=== PATIENT | female | born 1935 | race Caucasian/White ===

== ENCOUNTER 2018-01-11 07:29 | Day surgery (SDC) | payer OTHER ==
[2018-01-10 14:15] LABS: Absolute Lymphocytes (CBC) 0.8 K/uL (0.7-4.9); Absolute Monocytes 0.3 K/uL (0.1-1.3); Absolute Neutrophil 2.7 K/uL (1.8-8.0); Basophils % 0.6 % (0-1.3); Eosinophils % 1.8 % (0-4.4); Hematocrit 36.7 % (36.0-45.0); Lymphocytes % 19.8 % (15.3-44.8); MCH 26.4 pg (27.0-35.0); MPV 8.8 fL (7.6-11.3); Monocytes % 8.7 % (3.3-12.3); RBC Red Blood Cell Count 4.43 M/uL (3.86-4.86)
[2018-01-10 14:25] LABS: Potassium 4.4 mEq/L (3.6-5.0)
[2018-01-10 14:27] LABS: Protime INR 1.32
--- NOTE | 2018-01-10 14:32 | RAD REPORT ---
EXAM DESCRIPTION: RAD - Chest Pa And Lat (2 Views) - 01/10/2018 2:18 pm CLINICAL HISTORY: Preop chest, pending pacemaker exchange COMPARISON: Chest March 2017 TECHNIQUE: PA and lateral views of the chest were obtained. FINDINGS: The lungs are normal volume. Masslike density in the right midlung field is still present. Review of prior reports indicates a lung cancer history. No acute failure findings. Cardiomegaly i s present. No pleural effusion or pneumothorax seen. No acute bony finding noted. No aortic abnorma lity. Left subclavian pacemaker in place. IMPRESSION: Cardiomegaly without acute failure finding. Masslike density right midlung field similar or less prominent than seen March 2017. The right lung field finding is presumed to be part of a lung cancer process previously detailed.
--- NOTE | 2018-01-10 18:34 | EKG ---
Test Date: 2018-01-10 Test Time: 13:30:01 Music Supervisor: LENCHO MEASUREMENT RESULTS: Intervals: Rate: 62 OR: QRSD: 204 QT: 526 QTc: 533 Lantry: P: OR: QRS: -63 T: 117 INTERPRETIVE STATEMENTS: Electronic ventricular pacemaker Compared to ECG 06/01/2017 14:31:24 Sinus rhythm no longer present First degree AV block no longer present Right bundle-branch block no longer present Left anterior fascicular block no longer present Bifascicular block no longer present Electronically Signed On 01-10-18 18:33:29 CDT by Sarthak Carrillo
[~2018-01-11 07:29] MED LIST: CEFAZOLIN IRR ONE; IRR IRR ONE; NACL IRR ONE; VANCOMYCIN IRR ONE
[2018-01-11] MEDS ORDERED: VANCOMYCIN IRR SCH (07:30)
[2018-01-11] MEDS ORDERED: NACL IRR SCH (07:30)
[2018-01-11] MEDS ORDERED: IRR IRR SCH (07:30)
[2018-01-11] MEDS ORDERED: CEFAZOLIN IRR SCH (07:30)
--- OUTSIDE RECORDS SUMMARY | 2018-01-11 07:31 | XMS REPORT | Clinical Summary ---
:1935 Author Organization [facility] Address [address] [place] [address] Care Team Providers Name Role Phone Jace Persaud MD Primary Care Provider Allergies Active Allergy Reactions Severity Noted Date Comments Propafenone 01/23/2016 Current Medications Prescription Sig. Disp. Refills Start Date End Date Status metFORMIN Take 500 mg by Active (GLUCOPHAGE) 500 MG mouth 2 (two) tablet times a day with meals. lisinopril Take 10 mg by Active (PRINIVIL,ZESTRIL) 10 mouth daily. MG tablet apixaban (ELIQUIS) 5 Take 2.5 mg by Active mg tablet mouth 2 (two) times a day. sertraline (ZOLOFT) Take 50 mg by Active 50 MG tablet mouth daily. atorvastatin Take 40 mg by Active (LIPITOR) 40 MG mouth daily tablet with dinner. lansoprazole Take 30 mg by Active (PREVACID) 30 MG mouth daily capsule before breakfast. diphenhydrAMINE Take 25 mg by Active (BENADRYL) 25 mg mouth nightly tablet as needed for sleep. cyanocobalamin 1000 Take 1,000 mcg Active MCG tablet by mouth daily. rosiglitazone Take 2 mg by Discontinued (AVANDIA) 2 MG tablet mouth 2 (two) 7 times a day. furosemide (LASIX) 40 Take 40 mg by Discontinued mg tablet mouth 2 (two) 7 times a day. carvedilol (COREG) Take 6.25 mg Discontinued 6.25 MG tablet by mouth 2 7 (two) times a day with meals. apixaban (ELIQUIS) 5 Take 5 mg by Discontinued mg tablet mouth 2 (two) 7 times a day. metoprolol succinate Take 1 tablet 30 tablet 0 04/26/2017 XL (TOPROL-XL) 50 mg (50 mg total) 7 24 hr tablet by mouth daily for 30 days. insulin GLARGINE Inject 25 7.5 mL 0 04/26/2017 (LANTUS) 100 unit/mL Units under 7 injection (vial) the skin nightly for 30 days. insulin lispro Inject 8 Units 10 mL 12 04/26/2017 (HumaLOG) 100 unit/mL under the skin 7 injection 3 (three) times a day with meals for 30 days. furosemide (LASIX) 20 Take 1 tablet 30 tablet 0 04/26/2017 mg tablet (20 mg total) 7 by mouth daily for 30 days. HYDROcodone-acetamino Take 1 tablet 04/26/2017 phen (NORCO) 10-325 by mouth every 7 mg per tablet 6 (six) hours as needed for moderate pain or severe pain for up to 14 days. Max Daily Amount: 4 tablets aspirin 81 mg Chew 1 tablet 30 tablet 0 04/26/2017 chewable tablet (81 mg total) 7 daily for 30 days. nystatin (MYCOSTATIN) Apply 15 g 04/26/2017 100,000 unit/gram topically 2 7 powder (two) times a day for 30 days. isosorbide Take 1 tablet 30 tablet 0 04/26/2017 mononitrate (IMDUR) (30 mg total) 7 30 MG 24 hr tablet by mouth daily for 30 days. Active Problems Problem Noted Date Intertrochanteric fracture of left femur 05/11/2017 Systolic heart failure, chronic 04/21/2017 Acute kidney injury superimposed on CKD 04/21/2017 Type 2 diabetes mellitus with hyperglycemia 04/21/2017 Hip fracture requiring operative repair 04/15/2017 Encounters Date Type Specialty Care Team Description 06/03/2017 Telephone Josias Mccauley, Surgery 05/11/2017 Office Visit Orthopedic Josias Woods, Left hip pain (Primary Dx ); Surgery Intertrochanteric fracture of left femur, closed, with routine healing, subsequent encounter 05/11/2017 Orders Only Orthopedic Josias Woods, Intertrochanteric Surgery fracture of left femur, closed, with routine healing, subsequent encounter (Primary Dx) 05/10/2017 Abstract Josias Mccauley Surgery MD 05/09/2017 Office Visit Josias Mccauley Intertrochanteric Surgery fracture of left femur, closed, with routine healing, subsequent encounter (Primary Dx) 04/19/2017 Anesthesia Event Orthopedic Mike, Surgery MD Angely 04/19/2017 Procedure Pass Orthopedic Surgery 04/19/2017 Surgery Josias Mccauley, ROBBI, Surgery INTRAMEDULLARY NAIL, TIBIA 04/17/2017 Procedure Pass General Surgery 04/16/2017 Anesthesia Event General Surgery Kale Jara MD 04/16/2017 Orders Only Procedural Chandni Thomasnda Cardiology 04/16/2017 Procedure Pass General Surgery 04/15/2017 - Hospital Encounter Orthopedic Demarcus, 04/26/2017 Surgery MD Meme Kilpatrick Ejaz, Trini Lynn MD after 01/10/2017 Social History Tobacco Use Types Packs/Day Years Used Date Never Smoker Alcohol Use Drinks/Week oz/Week Comments No Sex Assigned at Date Recorded Not on file Last Filed Vital Signs Vital Sign Reading Time Taken Blood Pressure 135/61 04/26/2017 7:24 PM CDT Pulse 64 04/26/2017 7:24 PM CDT Temperature 35.7 C (96.3 F) 04/26/2017 7:24 PM CDT Respiratory Rate 16 04/26/2017 7:24 PM CDT Oxygen Saturation 95% 04/26/2017 7:24 PM CDT Inhaled Oxygen Concentration - - Weight 88.9 kg (196 lb) 04/19/2017 5:13 PM CDT Height 152.4 cm (5') 04/19/2017 5:13 PM CDT Body Mass Index 38.28 04/19/2017 5:13 PM CDT Plan of Treatment Health Maintenance Due Date Last Done Comments DIABETIC FOOT EXAM 1945 DIABETIC RETINAL EYE EXAM 1945 SHINGRIX VACCINE (#1) 1985 ZOSTER VACCINE 1995 PNEUMOCOCCAL POLYSACCHARIDE VACCINE AGE 65 AND OVER 02/01/2000 PNEUMOCOCCAL-13 02/01/2000 INFLUENZA VACCINE 03/22/2018 Implants Implanted Type Area Sql Bi Developer Device Expiration Model / Identifier Date Serial / Lot T2 F/T Locking Screw 5mmx32.5mm - [id number] IMPLANT Left: ANGEL 1896 [id number] / Implanted: 04/19/2017 (Quantity not on file) DEVICES [employer] / Nail Im Trchntrc W/ Set Scr Ti 130deg [id number] Strl - [id number] Orthopedic Left: ANGEL 09/21/2021 [id number] / Implanted: 04/19/2017 (Quantity not on file) Trauma [employer] / Implants [id number] Shaft Trnkl Modlr 448mm Strl - [id number] Orthopedic N/A: N/A ANGEL 0227 [id number] / Implanted: Qty: 1 on 04/19/2017 by Josias Woods MD [employer] / Implants [id number] Screw Bone Lag Ti [id number] - [id number] Orthopedic Left: ANGEL 3060 [id number] / Implanted: 04/19/2017 (Quantity not on file) [employer] / Implants Procedures Procedure Name Priority Date/Time Associated Diagnosis Comments CONSULT TO OSTOMY CARE Routine 04/20/2017 6:55 PM NURSE CDT LA AN ELECTIVE Routine 04/19/2017 2:10 PM ENDOTRACHEAL AIRWAY CDT Procedure Note - Kale Jara MD - 04/19/2017 2:09 PM CDT Airway Performed by: KALE JARA Authorized by: KALE JARA Location: OR Urgency: Elective Difficult Airway: No Anesthesiologist: KALE JARA Performed by: anesthesiologist Preoxygenated with 100% O2: Yes C-spine Precautions Maintained Throughout: No Mask assessment prior to intubation: RSI-mask ventilation not attempted. Final Airway Type: Endotracheal airway Final Endotracheal Airway: ETT Cuffed: Yes Technique Used: Direct laryngoscopy Insertion Site: Oral Blade Type: Lemus Laryngoscope Blade/Videolaryngoscope Blade Size: 2 ETT Size (mm): 7.0 Cuff at minimum occlusion pressure: Yes Measured from: Gums ETT to Gums (cm): 20 Placement Verified by: CO2 detection Laryngoscopic view: Grade I - full view of glottis Rapid Sequence Induction (RSI): Yes Modified RSI: No Number of Attempts at Approach: 1 INSERTION, INTRAMEDULLARY 04/19/2017 11:00 AM CDT NAIL, TIBIA ECHOCARDIOGRAM 2D COMPLETE Routine 04/16/2017 7:31 AM CDT Results for this W MMODE SPECTRAL COLOR procedure are in the DOPPLER ([id number]) results section. after 01/10/2017 Results POC glucose (04/26/2017 5:24 PM)Only the most recent of54 resultswithin the time period is included. Component Value Ref Range POC glucose 215 (H) 65 - 99 mg/dL Comment: [facility] Notified RN Meter ID: [id number] Qualification Engineer: Moiz Esquivel Specimen Performing Laboratory [facility] DEPARTMENT OF PATHOLOGY AND GENOMIC MEDICINE [address] [place] [address] Estimated GFR (04/26/2017 3:05 AM)Only the most recent of14 resultswithin the time period is included. Component Value Ref Range GFR Non Af Amer 48 (A) mL/min/1.73 m2 GFR Af Amer 58 (A) mL/min/1.73 m2 Comment: Chronic kidney disease: <60 mL/min/1.73m2 Kidney failure: <15 mL/min/1.73m2 The estimated GFR is calculated from the IDMS-traceable Modification of Diet in Renal Disease Equation. The accuracy of the calculation is poor when the creatinine is normal. Calculated values >90 mL/min/1.73m2 are not reported. This equation has not been validated in children (<18 years), women, the elderly (>70 years), or ethnic groups other than Caucasians and Americans. Specimen Performing Laboratory Plasma specimen [facility] DEPARTMENT OF PATHOLOGY AND GENOMIC MEDICINE [address] [place] [address] CBC with platelet and differential (04/26/2017 3:05 AM)Only the most recent of10 resultswithin the time period is included. Component Value Ref Range WBC 6.07 4.50 - 11.00 k/uL RBC 3.57 (L) 4.20 - 5.50 m/uL HGB 9.9 (L) 12.0 - 16.0 g/dL HCT 32.7 (L) 37.0 - 47.0 % MCV 91.6 82.0 - 100.0 fL MCH 27.7 27.0 - 34.0 pg MCHC 30.3 (L) 31.0 - 37.0 g/dL RDW - SD 52.7 37.0 - 55.0 fL MPV 10.3 8.8 - 13.2 fL Platelet count 211 150 - 400 k/uL Nucleated RBC 0.00 /100 WBC Neutrophils 64.5 39.0 - 69.0 % Lymphocytes 16.5 (L) 25.0 - 45.0 % Monocytes 15.7 (H) 0.0 - 10.0 % Eosinophils 1.8 0.0 - 5.0 % Basophils 0.3 0.0 - 1.0 % Immature granulocytes 1.2 (H)Comment: "Immature granulocytes" 0.0 - 1.0 % (promyelocytes, myelocytes, metamyelocytes) Specimen Performing Laboratory Blood [facility] DEPARTMENT OF PATHOLOGY AND [facility] MEDICINE [address] [place] [address] Basic metabolic panel (04/26/2017 3:05 AM)Only the most recent of13 resultswithin the time period is included. Component Value Ref Range Sodium 137 135 - 148 mEq/L Potassium 5.3 (H) 3.5 - 5.0 mEq/L Chloride 102 98 - 112 mEq/L CO2 23 (L) 24 - 31 mEq/L Anion gap 12 7 - 15 mEq/L Comment: Starting from November , anion gap calculation no longer incorporates potassium. Please note the change. BUN 50 (H) 8 - 23 mg/dL Creatinine 1.1 (H) 0.5 - 0.9 mg/dL Glucose 133 (H) 65 - 99 mg/dL Calcium 8.5 (L) 8.8 - 10.2 mg/dL Specimen Performing Laboratory Plasma specimen [facility] DEPARTMENT OF PATHOLOGY AND [address] [address] XR Chest 1 Vw Portable (04/24/2017 6:26 AM)Only the most recent of2 resultswithin the time period is included. Specimen Performing Laboratory [facility] [address] [place] [address] Narrative EXAMINATION:XR CHEST 1 VW PORTABLE CLINICAL HISTORY: 82 years Female SHORTNESS OF BREATH [facility] COMPARISON:Most recent prior at [facility] IMPRESSION: 1.Left chest wall cardiac device is similar to prior. The cardiomediastinal silhouette is enlarged, stable. Calcification in the aortic arch. 2.There is interstitial prominence bilaterally which may reflect some edema. There is a stable masslike opacity in the right perihilar region. Follow-up CT scan can be obtained for further characterization when feasible. Small right-sided pleural effusion. No pneumothorax. 3.There is a sclerotic lesion in the proximal left humerus, incompletely imaged, present on priors. It may represent a low-grade cartilaginous lesion such as an enchondroma. [facility]-[id number] Procedure Note [facility], Radiology Results Incoming - 04/24/2017 7:19 AM CDT EXAMINATION: XR CHEST 1 VW PORTABLE CLINICAL HISTORY: 82 years Female SHORTNESS OF BREATH [facility] COMPARISON: Most recent prior at [facility] IMPRESSION: 1. Left chest wall cardiac device is similar to prior. The cardiomediastinal silhouette is enlarged, stable. Calcification in the aortic arch. 2. There is interstitial prominence bilaterally which may reflect some edema. There is a stable masslike opacity in the right perihilar region. Follow-up CT scan can be obtained for further characterization when feasible. Small right- sided pleural effusion. No pneumothorax. 3. There is a sclerotic lesion in the proximal left humerus, incompletely imaged, present on priors. It may represent a low-grade cartilaginous lesion such as an enchondroma. [facility]-[id number] US Renal (04/23/2017 5:27 PM) Specimen Performing [facility] [address] [place] [address] Narrative EXAMINATION:US RENAL CLINICAL HISTORY:Elevated abnormal renal function tests COMPARISON:None. FINDINGS: Both kidneys are echogenic and moderate renal cortical atrophy is present. Findings are consistent with chronic renal disease. There is no evidence of hydronephrosis. The right kidney measures 9.2 x 3.6 x 3.2 cm. The left kidney measures 9.3 x 4.3 x 4.6 cm.. The urinary bladder is not visualized. IMPRESSION: Normal renal ultrasound examination. [facility]-[id number] Procedure Note Interface, Radiology Results Incoming - 04/23/2017 7:48 PM CDT EXAMINATION: US RENAL CLINICAL HISTORY: Elevated abnormal renal function tests COMPARISON: None. FINDINGS: Both kidneys are echogenic and moderate renal cortical atrophy is present. Findings are consistent with chronic renal disease. There is no evidence of hydronephrosis. The right kidney measures 9.2 x 3.6 x 3.2 cm. The left kidney measures 9.3 x 4.3 x 4.6 cm.. The urinary bladder is not visualized. IMPRESSION: Normal renal ultrasound examination. [facility]-[id number] Urinalysis screen and microscopy, with reflex to culture (04/21/2017 9:11 AM) Component Value Ref Range Specimen site Salcedo Color, UA Yellow Appearance, UA Hazy Specific gravity, UA 1.015 1.001 - 1.035 pH, UA 5.0 5.0 - 8.5 Protein, UA Negative Negative Glucose, UA Negative Negative Ketones, UA Negative Negative Bilirubin, UA Negative Negative Blood, UA Moderate (A) Negative Nitrite, UA Negative Negative Urobilinogen, UA <2.0 <2.0 Leukocyte esterase, UA Trace (A) Negative Epithelial cells, UA 2 /HPF WBC, UA 4 0 - 4 /HPF RBC, UA 18 (H) 0 - 2 /HPF Bacteria, UA Few None seen Yeast, UA None seen Yeast with pseudohyphae, UA None seen Hyaline casts, UA 7 /LPF Specimen Performing Laboratory Urine [facility] DEPARTMENT OF PATHOLOGY AND GENOMIC MEDICINE [address] [place] [address] Urea nitrogen, urine, random (04/21/2017 9:11 AM)Only the most recent of2 resultswithin the time period is included. Component Value Ref Range Urea nitrogen, urine, random 560 mg/dL Specimen Performing Laboratory Urine [facility] DEPARTMENT OF PATHOLOGY AND GENOMIC MEDICINE [address] [place] [address] Creatinine level, urine, random (04/21/2017 9:11 AM)Only the most recent of2 resultswithin the time period is included. Component Value Ref Range Creatinine, urine, random 109 mg/dL Specimen Performing Laboratory Urine [facility] DEPARTMENT OF PATHOLOGY AND [facility] MEDICINE [address] [place] [address] Gram stain (04/21/2017 9:11 AM) Component Value Ref Range Gram stain result No WBC's or organisms seen. Comment: Specimen Information Specimen Source: Urine Specimen Site: Random void Specimen Performing Laboratory Urine - Random void [facility] DEPARTMENT OF PATHOLOGY AND [facility] MEDICINE [address] [place] [address] Urine culture (04/21/2017 9:11 AM) Component Value Ref Range Urine culture isolate No growth after 2 days. Comment: Specimen Information Specimen Source: Urine Specimen Site: Random void Specimen Performing Laboratory Urine - Random void [facility] DEPARTMENT OF PATHOLOGY AND GENOMIC MEDICINE [address] [place] [address] B natriuretic peptide (04/21/2017 4:00 AM)Only the most recent of3 resultswithin the time period is included. Component Value Ref Range BNP 1,141 (H) 0 - 100 pg/mL Specimen Performing Laboratory Blood [facility] DEPARTMENT OF PATHOLOGY AND GENOMIC MEDICINE [address] [place] [address] Hemoglobin A1c (04/21/2017 3:30 AM) Component Value Ref Range Hemoglobin A1C 10.2 (H) 4.0 - 5.6 % Comment: HbA1c cutoffs for diagnosing diabetes: 4.0% - 5.6%=normal 5.7% - 6.4%=increased risk for diabetes (prediabetes) >=6.5%=diabetes Goals for glycemic control (ADA 2016) < 7.0%Target for non adults with diabetes. More or less stringent targets may be appropriate for individual patients. <7.5% Target for Children and adolescents with type 1 diabetes. Specimen Performing Laboratory Blood [facility] DEPARTMENT OF PATHOLOGY AND [facility] MEDICINE [address] [place] [address] XR Hip 1 View Left (04/19/2017 4:04 PM) Specimen Performing Laboratory [address] [address] Narrative EXAM:XR HIP 1 VIEW LEFT CLINICAL:Post Op COMPARISON:None. IMPRESSION: 1.Intramedullary dax and dynamic screw fixation of left femoral neck fracture. Hardware intact. Well aligned. 2.Small residual subcutaneous emphysema. 3.Vascular calcifications. [facility]-[id number] Procedure Note Interface, Radiology Results Incoming - 04/19/2017 4:09 PM CDT EXAM: XR HIP 1 VIEW LEFT CLINICAL: Post Op COMPARISON: None. IMPRESSION: 1. Intramedullary dax and dynamic screw fixation of left femoral neck fracture. Hardware intact. Well aligned. 2. Small residual subcutaneous emphysema. 3. Vascular calcifications. [facility]-[id number] OR [place] > I Hour (04/19/2017 2:40 PM) Specimen Performing Laboratory [address] [address] Narrative IMPRESSION: C-arm fluoroscopy over 1 hour was provided in the OR for the referring physician. A radiologist was not present during the procedure. Refer to the Operative report issued by the performing provider for procedure details. LOCATION: [facility] OR 16 PROCEDURE: C-Arm for ORIF INTRAMEDULLARY NAIL, LEFT HIP START TIME: 1330 FINISH TIME: 1440 FLUORO TIME: 1 min 55 sec DOSE: mGy:7.86 TECH(S): ASHIA JACQUELINE Procedure Note [facility], Radiology Results Incoming - 04/21/2017 1:11 PM CDT IMPRESSION: C-arm fluoroscopy over 1 hour was provided in the OR for the referring physician. A radiologist was not present during the procedure. Refer to the Operative report issued by the performing provider for procedure details. LOCATION: [facility] OR 16 PROCEDURE: C-Arm for ORIF INTRAMEDULLARY NAIL, LEFT HIP START TIME: 1330 FINISH TIME: 1440 FLUORO TIME: 1 min 55 sec DOSE: mGy: 7.86 TECH(S): ASHIA JACQUELINE Prothrombin time with INR (04/18/2017 8:43 AM)Only the most recent of2 resultswithin the time period is included. Component Value Ref Range Prothrombin time 16.3 (H) 12.0 - 15.0 sec INR 1.3 Comment: The International Normalized Ratio (INR) is a therapeutic monitoring tool for patients who are stable on oral anticoagulant therapy. An INR of 2.0-3.0 is suggested for deep vein thrombosis/pulmonary embolism. Specimen Performing Laboratory Blood [facility] DEPARTMENT OF PATHOLOGY AND GENOMIC MEDICINE [address] [place] [address] Urinalysis, automated with microscopy (04/17/2017 11:10 AM) Component Value Ref Range Color, UA Yellow Appearance, UA Hazy Specific gravity, UA 1.014 1.001 - 1.035 pH, UA 5.0 5.0 - 8.5 Protein, UA Negative Negative Glucose, UA 1+ (A) Negative Ketones, UA Negative Negative Bilirubin, UA Negative Negative Blood, UA Moderate (A) Negative Nitrite, UA Negative Negative Urobilinogen, UA <2.0 <2.0 Leukocyte esterase, UA Small (A) Negative Epithelial cells, UA 2 /HPF WBC, UA 24 (H) 0 - 4 /HPF RBC, UA 35 (H) 0 - 2 /HPF Bacteria, UA Few None seen Hyaline casts, UA 7 /LPF WBC clumps, UA Few (A) Yeast, UA None seen Yeast with pseudohyphae, UA None seen Specimen Performing Laboratory Urine [facility] DEPARTMENT OF PATHOLOGY AND [facility] MEDICINE [address] [place] [address] Phosphorus level (04/17/2017 3:05 AM)Only the most recent of2 resultswithin the time period is included. Component Value Ref Range Phosphorus 4.7 (H) 2.4 - 4.5 mg/dL Specimen Performing Laboratory Plasma specimen [facility] DEPARTMENT OF PATHOLOGY AND [address] [address] Magnesium level (04/17/2017 3:05 AM)Only the most recent of2 resultswithin the time period is included. Component Value Ref Range Magnesium 2.3 1.6 - 2.4 mg/dL Specimen Performing Laboratory Plasma specimen [facility] DEPARTMENT OF PATHOLOGY AND [address] [address] Comprehensive metabolic panel (04/17/2017 3:05 AM) Component Value Ref Range Sodium 135 135 - 148 mEq/L Potassium 5.4 (H) 3.5 - 5.0 mEq/L Chloride 98 98 - 112 mEq/L CO2 23 (L) 24 - 31 mEq/L Anion gap 14 7 - 15 mEq/L Comment: Starting from November , anion gap calculation no longer incorporates potassium. Please note the change. BUN 43 (H) 8 - 23 mg/dL Creatinine 2.2 (H) 0.5 - 0.9 mg/dL Glucose 188 (H) 65 - 99 mg/dL Calcium 8.9 8.8 - 10.2 mg/dL Protein 6.7 6.3 - 8.3 g/dL Comment: [place] 4.6-7.0 g/dL 1 week 4.4-7.6 g/dL 7 months-1year5.1-7.3 g/dL 1-2 years5.6-7.5 g/dL >3 years6.0-8.0 g/dL 18-150 6.3-8.3 g/dL Albumin 2.5 (L) 3.5 - 5.0 g/dL A/G ratio 0.6 (L) 0.7 - 3.8 Alkaline phosphatase 138 (H) 35 - 104 U/L AST 17 10 - 35 U/L ALT 10 5 - 50 U/L Total bilirubin 0.6 0.0 - 1.2 mg/dL Specimen Performing Laboratory Plasma specimen [facility] DEPARTMENT OF PATHOLOGY AND [facility] MEDICINE [address] [place] [address] Echocardiogram complete w contrast and 3D if needed (04/16/2017 7:31 AM) Specimen Performing Laboratory [facility] [address] [place] [address] Narrative Echocardiography Report [id number] [facility], [facility] [address], [place] [address] Pat.Name:Ijeoma ENGLE.ID:[id number] .Date: 04/16/2017 Refer.MD:TIMBO ZELAYA MD Exam Time: 6:48:00 AMStudy Type:Routine Echo Height:145cm Weight:94.6kg BSA: 1.83 m2 DOBAge:1935,82Y Sex: FEMALEBP:140/63 Sonogrphr: Kecia Stone, RDCS, RVT Pat. Stat.:Inpatient Room:[address] Study Status:Final Echo Event ID:[id number] Order ID:[id number] Reason for Study:H/o CHF History / Clinical:Diabetes, Hypertension, Congestive Heart Failure, Dyspnea On Exertion, Obesity, GI bleed, Anemia, H/o bilateral pleural effusion Procedures:2D Echo, Colorflow Doppler Race:C SUMMARY: LV systolic function is moderately to severely depressed. RV systolic function is moderately depressed. FINDINGS: LV: LV size is normal. There isconcentric LV hypertrophy. LV systolicfunction is moderately to severely depressed. EstimatedEF is 30-34%. Septal motion is paradoxical secondaryto LBBB or conduction abnormality. RV: RV size is normal. A pacemaker wire is seen in the RV. RV systolicfunction is moderately depressed. Apical hypokinesis LA: LA size is normal. RA: RA volume is moderately enlarged. A pacemaker wire is seen. AO: Aortic root diameter is normal. CM: No pericardial effusion. IAS:Interatrial septum bulges to the left, consistent with high RApressure. AV: Moderate thickening and calcification of AV leaflets. MV: Mild mitral annular calcification. Thickened and/or calcifiedchordae. Calcified papillary muscle. PV: No structural PV abnormalities noted. A trace of pulmonic regurgitation. TV: No structural TV abnormalities noted. Mild tricuspid regurgitation [place]: LV relaxation is impaired. LV filling pressure is borderline elevated. Other:Estimated PA systolic pressure is 60 mmHg, assuming a mean RAPof 15 mmHg. MEASUREMENTS: 2D Parasternal Long [place] LVOT 2.4 cmAo An2.5 cm LVIDd4.6 cmIndex 2.5 cm/m Ao Rtd 3 cm Index1.6 cm/m LVIDs4.1 cmLV Bowc279.4 g(87-129) LV%fs 10.9 % LVM Index 206.8 g/m2 IVSd 2 cmRWT0.7 LVPWd1.6 cm RA Sng Plane RA Area 23.6 cm2(8.3-19.5) RA Vol 88 ml Index48.1 ml/m RA LngAx 5.4 cm WALL MOTION: RESTING WALL MOTION: Basal Inferoseptal, Basal Inferior varner are akinetic.Mid Inferoseptal, Mid Inferolateral, Apical Septal, Apical Inferior, Apical varner are hypokinetic.Basal Anterior, Basal Anteroseptal, Basal Inferolateral, Basal Anterolateral, Mid Anterior, Mid Anteroseptal, Mid Inferior, Mid Anterolateral, Apical Anterior, Apical Lateral varner are mildly hypokinetic. Wall Index=1.8 Signed 04/16/2017 12:12 PM Jessi Shaffer M.D. Procedure Note Interface, Radiology Results In - 04/16/2017 12:13 PM CDT Echocardiography Report [id number] [address] Pat.Name: QUOC ENGLE Pat.ID: [id number] .Date: 04/16/2017 Refer.MD: TIMBO ZELAYA MD Exam Time: 6:48:00 AM Study Type:Routine Echo Height: 145cm Weight: 94.6kg BSA: 1.83 m2 Age: 6 1935,82Y Sex: FEMALE BP: 140/63 Sonogrphr: Kecia Stone RDCS, RVT Pat. Stat.:Inpatient Room: D760 A Study Status:Final Echo Event ID:[id number] Order ID: [id number] Reason for Study:H/o CHF History / Clinical:Diabetes, Hypertension, Congestive Heart Failure, Dyspnea On Exertion, Obesity, GI bleed, Anemia, H/o bilateral pleural effusion Procedures:2D Echo, Colorflow Doppler Race: C SUMMARY: LV systolic function is moderately to severely depressed. RV systolic function is moderately depressed. FINDINGS: LV: LV size is normal. There is concentric LV hypertrophy. LV systolic function is moderately to severely depressed. Estimated EF is 30-34%. Septal motion is paradoxical secondary to LBBB or conduction abnormality. RV: RV size is normal. A pacemaker wire is seen in the RV. RV systolic function is moderately depressed. Apical hypokinesis LA: LA size is normal. RA: RA volume is moderately enlarged. A pacemaker wire is seen. AO: Aortic root diameter is normal. CM: No pericardial effusion. IAS: Interatrial septum bulges to the left, consistent with high RA pressure. AV: Moderate thickening and calcification of AV leaflets. MV: Mild mitral annular calcification. Thickened and/or calcified chordae. Calcified papillary muscle. PV: No structural PV abnormalities noted. A trace of pulmonic regurgitation. TV: No structural TV abnormalities noted. Mild tricuspid regurgitation Beaver: LV relaxation is impaired. LV filling pressure is borderline elevated. Other: Estimated PA systolic pressure is 60 mmHg, assuming a mean RAP of 15 mmHg. MEASUREMENTS: 2D Parasternal Long [place] LVOT 2.4 cm Ao An 2.5 cm LVIDd 4.6 cm Index 2.5 cm/m Ao Rtd 3 cm Index 1.6 cm/m LVIDs 4.1 cm LV Mass 378.4 g (87-129) LV%fs 10.9 % LVM Index 206.8 g/m2 IVSd 2 cm RWT 0.7 LVPWd 1.6 cm RA Sng Plane RA Area 23.6 cm2 (8.3-19.5) RA Vol 88 ml Index 48.1 ml/m RA LngAx 5.4 cm WALL MOTION: RESTING WALL MOTION: Basal Inferoseptal, Basal Inferior varner are akinetic. Mid Inferoseptal, Mid Inferolateral, Apical Septal, Apical Inferior, Apical varner are hypokinetic. Basal Anterior, Basal Anteroseptal, Basal Inferolateral, Basal Anterolateral, Mid Anterior, Mid Anteroseptal, Mid Inferior, Mid Anterolateral, Apical Anterior, Apical Lateral varner are mildly hypokinetic. Wall Index=1.8 Signed 04/16/2017 12:12 PM Jessi Shaffer M.D. Antibody identification (04/16/2017 4:00 AM) Component Value Ref Range Antibody ID POS, Anti-E Antibody ID POS, Undetermined Specificity Specimen Performing Laboratory [facility] DEPARTMENT OF PATHOLOGY AND GENOMIC MEDICINE [address] [place] [id number] Type and screen (04/16/2017 4:00 AM) Component Value Ref Range ABO grouping A Rh type POS Antibody screen (gel) POS Specimen Performing Laboratory Blood [facility] DEPARTMENT OF PATHOLOGY AND GENOMIC MEDICINE [address] [place] [id number] XR Hip 2-3 View Left (04/16/2017 3:23 AM) Specimen Performing Laboratory [address] [address] Narrative XR HIP 2-3 VIEWS LEFT CLINICAL INDICATION:fracture COMPARISON:None. IMPRESSION: There is a mildly angulated intertrochanteric fracture of the proximal left femur. No other acute fracture is identified. There is no hip dislocation. The bones are demineralized. There are degenerative changes of both hips. There is partially visualized hardware within the proximal right femoral shaft. There are vascular calcifications, compatible with peripheral vascular disease. [facility]-[id number] Procedure Note Interface, Radiology Results Incoming - 04/16/2017 3:30 AM CDT XR HIP 2-3 VIEWS LEFT CLINICAL INDICATION: fracture COMPARISON: None. IMPRESSION: There is a mildly angulated intertrochanteric fracture of the proximal left femur. No other acute fracture is identified. There is no hip dislocation. The bones are demineralized. There are degenerative changes of both hips. There is partially visualized hardware within the proximal right femoral shaft. There are vascular calcifications, compatible with peripheral vascular disease. [facility]-[id number] XR Femur 2 Vw Left (04/16/2017 3:23 AM) Specimen Performing Laboratory [address] [address] Narrative XR FEMUR 2 VW LEFT CLINICAL INDICATION:fracture COMPARISON:None. IMPRESSION: There is a mildly angulated intertrochanteric fracture of the proximal left femur. No other acute fracture is identified. There is no hip dislocation. The bones are demineralized. There are degenerative changes of both hips. There is partially visualized hardware within the proximal right femoral shaft. There are vascular calcifications, compatible with peripheral vascular disease. [facility]-[id number] Procedure Note Interface, Radiology Results Incoming - 04/16/2017 3:30 AM CDT XR FEMUR 2 VW LEFT CLINICAL INDICATION: fracture COMPARISON: None. IMPRESSION: There is a mildly angulated intertrochanteric fracture of the proximal left femur. No other acute fracture is identified. There is no hip dislocation. The bones are demineralized. There are degenerative changes of both hips. There is partially visualized hardware within the proximal right femoral shaft. There are vascular calcifications, compatible with peripheral vascular disease. [facility]-[id number] ECG 12 lead (04/15/2017 9:35 PM) Component Value Ref Range Ventricular rate 60 Atrial rate 68 QRSD interval 156 QT interval 512 QTC interval 512 QRS axis 1 -60 T wave axis -88 EKG impression Wide QRS rhythm-Right bundle branch block-Left anterior fascicular block-^^^ Bifascicular block ^^^-Left ventricular hypertrophy with repolarization abnormality-Abnormal ECG-In automated comparison with ECG of May-2015 12:50,-Wide QRS rhythm has replaced Electronic ventricular pacemaker- Specimen Performing Laboratory [facility] MUSE [address] [place] [id number] Partial thromboplastin time, activated (04/15/2017 9:00 PM) Component Value Ref Range PTT 26.8 23.0 - 36.0 sec Comment: PTT therapeutic range for unfractionated heparin is 61.0-112.0 seconds which corresponds to Anti-Xa 0.3-0.7 U/ml. Specimen Performing Laboratory Blood [facility] DEPARTMENT OF PATHOLOGY AND GENOMIC MEDICINE [address] [place] [id number] Troponin (04/15/2017 7:27 PM) Component Value Ref Range Troponin <0.30 0.00 - 0.30 ng/mL Comment: 0.30 - 1.49 ng/mlMay indicate increased risk of acute coronary syndrome. >=1.5 ng/mlConsistent with acute myocardial infarction. The diagnostic value of a single normal or non-diagnostic result is questionable.Serial samples at 2-6 hour intervals are required to rule out acute myocardial injury. Specimen Performing Laboratory Plasma specimen [facility] DEPARTMENT OF PATHOLOGY AND GENOMIC MEDICINE [address] [place] [id number] Lactic acid level (04/15/2017 7:27 PM) Component Value Ref Range Lactic acid 2.0 0.5 - 2.2 mmol/L Specimen Performing Laboratory Plasma specimen [facility] DEPARTMENT OF PATHOLOGY AND GENOMIC MEDICINE [address] [place] [phone] after 01/10/2017 Insurance Payer Benefit Plan / Group Subscriber ID Type Phone Address MEDICARE MEDICARE PART A AND B xxxxxxxxxx Medicare [place], [place] AETNA AETNA HMO,POS,EPO, MC/EC xxxxxx HMO Home: [address] [phone] [address]
[2018-01-11] MEDS ORDERED: NA CHLORIDE 0.9% 500 ML ONE (07:59)
[2018-01-11] MEDS ORDERED: GENTAMICIN 80 MG/100 ML BAG 80 MG/100 ML BAG IV ONE (08:21)
[2018-01-11] MEDS ORDERED: CEFAZOLIN/SWI 1gm 1 GM/10 ML SYR ONE (08:21)
[2018-01-11] MEDS ORDERED: ATROPINE SULF 1 MG/10 ML SYR IV ONE (09:29)
[2018-01-11] MEDS ORDERED: MIDAZOLAM HCL 2 MG/2 ML INJ ONE (09:29)
[2018-01-11] MEDS ORDERED: FENTANYL CITR 100 MCG/2 ML ONE (09:29)
[2018-01-11] MEDS ORDERED: HEPA 1000U/500MLS 1,000 UNIT/500 ML BAG IV ONE (10:55)
[2018-01-11] MEDS ORDERED: LIDOCAINE 1% 20 ML MDV ONE (10:55)
[2018-01-11 12:17] VITALS: BP 157/73; TEMP 98.2; O2SAT 97
--- NOTE | 2018-01-11 19:27 | OP ---
Surgeon: Umer Rowley MD Primary Care Physician: Jace Persaud M.D. Procedure Performed: Pacemaker generator replacement. Indication: Pacemaker reached an TRACY trigger. Procedure In Detail: The patient was brought to the cardiac tutorial laboratory supervisor in a fasting state. She had be en off Eliquis, her last dose was on January 09 at 6 p.m., this is January 11. She gave informed consent . She was prepared and draped in the usual sterile fashion, sedated with combination of fentanyl and versed, titrated to an adequate level of sedation. The pacemaker device she had was implanted into the left pectoral region, was identified through palpation. A 1% lidocaine was used to anesthetize t he skin. A sharp incision was made through the skin, blunt dissection was carried down to the pocket . Pocket was opened. The old pacemaker was explanted. A sponge was placed in the empty pocket, it was enlarged slightly using blunt dissection with gloved fingers. The leads were removed from the ol d pacemaker, placed on the new pacemaker. The leads were tested via telemetry through the new pacema ker. Everything was found to be adequate. The sponge was removed from the pocket. The pocket was i rrigated with antibiotic solution and the device was implanted into the pocket. Pocket was closed wi th a layer of 0 Polysorb, subcutaneous layer with 3-0 Polysorb, and a cutaneous layer of stainless st eel chloe. There were no complications from the procedure. The new pacemaker is made by [employer], it is a model named Accolade MRI IS-1, model L311, serial [id number]. The pacemaker explanted was implanted on 04/21/2011, explanted today. It was a [employer] model S603, serial [id number], explanted because of normal battery depletion. The lead in the right atrium was a [employer] Fineline II EZ Sterox bipolar, model 4469, serial #[id number]. The right ventricular lead is a Nuvolarus IS-1 Bi Positive Fix, model 4135, serial #[id number] also made by [employer]. Both of t hese leads were tested and reused. Electrophysiologic Data: At the right atrial, P-wave amplitude was 1.9 mV, pacing threshold was 0.5 V at 0.4 milliseconds, impedance 458 ohms. Right ventricular lead gave us an R-wave of 6.5 mV, pacin g threshold 1.5 V at 0.4 milliseconds, 470 ohms. Its set DDD rate response is 60-130, right atrial s ensitivity 0.5, right ventricular 2.5. Right atrial output 2.5 V, right ventricular output auto 0.4 milliseconds for both, both are paced and sensed bipolar. At the end of the procedure, sponge counts were correct. Needle counts and instrument counts all correct. Complications: Complications from the procedure, none. Estimated Blood Loss: 5 cc. Shore Man: Davina Swartz. YVONNE/JOHNNY Voice ID: [id number] Report ID: [id number]
== END 2018-01-11 12:10 | disposition home health service (06) ==
LOC: CCL 07:29
PROVIDERS: ATTEND Internal Medicine
DX: Z45.010 Encounter for checking and testing of cardiac pacemaker pulse generator [battery] (principal); I48.3 Typical atrial flutter; I10 Essential (primary) hypertension; E78.2 Mixed hyperlipidemia; E11.9 Type 2 diabetes mellitus without complications
CPT/HCPCS: 33228; 36415; 71046; 80048; 82962 ×2; 85025; 85610; 85730; 93005; J0690 ×2; J1580; J2250; J3010; 88300

== ENCOUNTER 2018-05-02 12:50 | Inpatient (IN) | payer OTHER ==
--- OUTSIDE RECORDS SUMMARY | 2018-05-02 12:52 | XMS REPORT | Continuity of Care Document ---
:1935 Author Organization Interface Problems Problem Status Onset Classification Date Comments Source Date Reported Discharge 05/12/2017 [facility] Diagnosis: 7 Complication of Salcedo catheter CATHETER PAIN Active [facility] 7 Jose Medications Medication Details Route Status Patient Ordering Order Source Instructions Provider Date Acetaminophen 1 tab, Inactive MH 300 MG / Codeine Route: PO, 017 [place] Phosphate 30 MG Drug Form: Oral Tablet TAB, [Tylenol with Dosing Codeine #3] Weight 81.818, kg, ONCE, STAT, Start date: 05/09/17 21:22:00 CDT, Stop date: 05/09/17 21:22:00 CDTNotes: Do not exceed 4gm/day of acetaminop hen. (Same as: Tylenol with Codeine # 3) Allergies, Adverse Reactions, Alerts Substance Category Reaction Severity Reaction Status Date Comments Source type Reported Rythmol Assertion Drug Active allergy [place] Immunizations Immunization Date Given Site Status Last Updated Comments Source Results Order Results Value Reference Date Interpretation Comments Source Name Range Vital Signs Vital Sign Value Date Comments Source Heart Rate 61 05/10/2017 [facility] Respitory Rate 18 05/10/2017 [facility] Temperature Oral (F) 98.2 F 05/10/2017 [facility] Systolic (mm Hg) 132 05/10/2017 [facility] Diastolic (mm Hg) 76 05/10/2017 [facility] Systolic (mm Hg) 142 05/09/2017 [facility] Diastolic (mm Hg) 72 05/09/2017 [facility] Respitory Rate 18 05/09/2017 [facility] Heart Rate 64 05/09/2017 [facility] Temperature Oral (F) 98.2 F 05/09/2017 [facility] Heart Rate 62 05/09/2017 [facility] Systolic (mm Hg) 152 05/09/2017 [facility] Diastolic (mm Hg) 68 05/09/2017 [facility] Respitory Rate 18 05/09/2017 [facility] BMI Calculated 29.11 05/09/2017 [facility] Height 167.64 cm 05/09/2017 [facility] Weight 81.818 05/09/2017 [facility] Temperature Oral (F) 98.0 F 05/09/2017 [facility] Encounters Location Location Encounter Encounter Reason Attending ADM DC Status Source Details Type Number For Provider Date Date Visit [facility] [id number] Sergey 05/09 05/10 KERWIN Hinson /2016 [facility] Procedures Procedure Code Date Perfomer Comments Source Hip arthroplasty [id number] [facility]
--- OUTSIDE RECORDS SUMMARY | 2018-05-02 12:52 | XMS REPORT | Clinical Summary ---
:1935 Author Organization [facility] Address [address] [place] [address] Care Team Providers Name Role Phone Jace Persaud MD Primary Care Provider Allergies Active Allergy Reactions Severity Noted Date Comments Propafenone 01/23/2016 Current Medications Prescription Sig. Disp. Refills Start Date End Date Status metFORMIN (GLUCOPHAGE) Take 500 mg by Active 500 MG tablet mouth 2 (two) times a day with meals. lisinopril Take 10 mg by Active (PRINIVIL,ZESTRIL) 10 mouth daily. MG tablet apixaban (ELIQUIS) 5 Take 2.5 mg by Active mg tablet mouth 2 (two) times a day. sertraline (ZOLOFT) 50 Take 50 mg by Active MG tablet mouth daily. atorvastatin (LIPITOR) Take 40 mg by Active 40 MG tablet mouth daily with dinner. lansoprazole Take 30 mg by Active (PREVACID) 30 MG mouth daily capsule before breakfast. diphenhydrAMINE Take 25 mg by Active (BENADRYL) 25 mg mouth nightly as tablet needed for sleep. cyanocobalamin 1000 Take 1,000 mcg Active MCG tablet by mouth daily. metoprolol succinate Take 1 tablet 30 tablet 0 04/26/2017 05/26/2017 XL (TOPROL-XL) 50 mg (50 mg total) by 24 hr tablet mouth daily for 30 days. insulin GLARGINE Inject 25 Units 7.5 mL 0 04/26/2017 05/26/2017 (LANTUS) 100 unit/mL under the skin injection (vial) nightly for 30 days. insulin lispro Inject 8 Units 10 mL 12 04/26/2017 05/26/2017 (HumaLOG) 100 unit/mL under the skin 3 injection (three) times a day with meals for 30 days. furosemide (LASIX) 20 Take 1 tablet 30 tablet 0 04/26/2017 05/26/2017 mg tablet (20 mg total) by mouth daily for 30 days. HYDROcodone-acetaminop Take 1 tablet by 04/26/2017 05/10/2017 hen (NORCO) 10-325 mg mouth every 6 per tablet (six) hours as needed for moderate pain or severe pain for up to 14 days. Max Daily Amount: 4 tablets aspirin 81 mg chewable Chew 1 tablet 30 tablet 0 04/26/2017 05/26/2017 tablet (81 mg total) daily for 30 days. nystatin (MYCOSTATIN) Apply topically 15 g 04/26/2017 05/26/2017 100,000 unit/gram 2 (two) times a powder day for 30 days. isosorbide mononitrate Take 1 tablet 30 tablet 0 04/26/2017 05/26/2017 (IMDUR) 30 MG 24 hr (30 mg total) by tablet mouth daily for 30 days. Active Problems Problem Noted Date Intertrochanteric fracture of left femur 05/11/2017 Systolic heart failure, chronic 04/21/2017 Acute kidney injury superimposed on CKD 04/21/2017 Type 2 diabetes mellitus with hyperglycemia 04/21/2017 Hip fracture requiring operative repair 04/15/2017 Encounters Date Type Specialty Care Team Description 06/03/2017 Telephone Orthopedic Surgery Josias Woods MD 05/11/2017 Office Visit Orthopedic Surgery Josias Woods, Left hip pain ( Primary Dx); Intertrochanteric fracture of left femur, closed, with routine healing, subsequent encounter 05/11/2017 Orders Only Orthopedic Surgery Josias Woods, Intertrochanteric fracture of left femur, closed, with routine healing, subsequent encounter (Primary Dx) 05/10/2017 Abstract Orthopedic Surgery Josias Woods MD 05/09/2017 Office Visit Orthopedic Surgery Josias Woods, Intertrochanteric fracture of left femur, closed, with routine healing, subsequent encounter (Primary Dx) after 05/01/2017 Social History Tobacco Use Types Packs/Day Years Used Date Never Smoker Alcohol Use Drinks/Week oz/Week Comments No Sex Assigned at Date Recorded Not on file Last Filed Vital Signs Not on file Plan of Treatment Health Maintenance Due Date Last Done Comments DIABETIC FOOT EXAM 1945 DIABETIC RETINAL EYE EXAM 1945 SHINGRIX VACCINE (#1) 1985 ZOSTER VACCINE 1995 PNEUMOCOCCAL POLYSACCHARIDE VACCINE AGE 65 AND OVER 02/01/2000 PNEUMOCOCCAL-13 02/01/2000 INFLUENZA VACCINE 03/22/2018 Implants Implanted Type Area Scrum Coach Device Expiration Model / Identifier Date Serial / Lot T2 F/T Locking Screw 5mmx32.5mm - [id number] IMPLANT Left: ANGEL [id number] / Implanted: 04/19/2017 (Quantity not on file) DEVICES [employer] / Nail Im Trchntrc W/ Set Scr Ti 130deg [id number] Strl - [id number] Orthopedic Left: ANGEL 09/21/2021 [id number] / Implanted: 04/19/2017 (Quantity not on file) Trauma [employer] / Implants [id number] Shaft Trnkl Modlr 448mm Strl - [id number] Orthopedic N/A: N/A ANGEL 0227 [id number] / Implanted: Qty: 1 on 04/19/2017 by Josias Woods MD [employer] / Implants [id number] Screw Bone Lag Ti [id number] - [id number] Orthopedic Left: ANGEL [id number] [id number] / Implanted: 04/19/2017 (Quantity not on file) Trauma [employer] / Implants Results Not on fileafter 05/01/2017 Insurance Payer Benefit Plan / Group Subscriber ID Type Phone Address MEDICARE MEDICARE PART A AND B xxxxxxxxxx Medicare [place], [place] AETNA AETNA HMO,POS,EPO, MC/EC xxxxxx HMO Home: [facility] [place] [phone] [place] [id number]
--- OUTSIDE RECORDS SUMMARY | 2018-05-02 12:52 | XMS REPORT | Summary of Care ---
:1935 Author Organization [facility] Address [address] [place] [address]- Encounter [facility] Hui(FIN) [id number] Date(s): 05/09/17 - 05/09/17 [facility] [id number] [place] [phone] Discharge Diagnosis: Complication of Salcedo catheter Discharge Disposition: Home or Self Care Attending Physician: Sergey Hummel MD Vital Signs Most recent to oldest 1 2 3 [Reference Range]: Height 167.64 cm (05/09/17 12:40 PM) Temperature Oral [96.4-99.1 98.2 DegF 98.2 DegF 98.0 DegF DegF] (05/09/17 10:32 PM) (05/09/17 4:14 PM) (05/09/17 12:40 PM) Blood Pressure [90-140/60-90 132/76 mmHg 142/72 mmHg 152/68 mmHg mmHg] (05/09/17 10:32 PM) *HI* *HI* (05/09/17 4:14 PM) (05/09/17 2:12 PM) Respiratory Rate [14-20 18 BRMIN 18 BRMIN 18 BRMIN BRMIN] (05/09/17 10:32 PM) (05/09/17 4:14 PM) (05/09/17 2:12 PM) Peripheral Pulse Rate [60-100 61 bpm 64 bpm 62 bpm bpm] (05/09/17 10:32 PM) (05/09/17 4:14 PM) (05/09/17 2:12 PM) Weight 81.818 kg (05/09/17 12:40 PM) Body Mass Index 29.11 m2 (05/09/17 12:40 PM) Problem List No data available for this section Allergies, Adverse Reactions, Alerts Substance Reaction Severity Status Rythmol Active Medications Tylenol with Codeine #3 oral tablet 1 tab, Route: PO, Drug Form: TAB, Dosing Weight 81.818, kg, ONCE, STAT, Start date: 05/09/17 21:22:00 CDT, Stop date: 05/09/17 21:22:00 CDT Notes: Do not exceed 4gm/day of acetaminophen. (Same as: Tylenol with Codeine # 3) Start Date: 05/09/17 Stop Date: 05/09/17 Status: Completed Results No data available for this section Immunizations No data available for this section Procedures Procedure Date Related Diagnosis Body Site Hip arthroplasty Social History Social History Type Response Smoking Status Never smoker; Exposure to Tobacco Smoke None; Cigarette Smoking Last 365 Days No; Reg Smoking Cessation Counseling No Assessment and Plan No data available for this section
[2018-05-02] MEDS ORDERED: ALBUTEROL 2.5 MG/3 ML NEB SOL ONE (13:13)
[2018-05-02] MEDS ORDERED: IPRATROPIUM BROM 0.5MG/2.5ML ONE (13:13)
[2018-05-02 13:28] LABS: Absolute Lymphocytes (CBC) 0.9 K/uL (0.7-4.9); Absolute Monocytes 1.1 K/uL (0.1-1.3); Absolute Neutrophil 9.4 K/uL (1.8-8.0); Basophils % 0.8 % (0-1.3); Eosinophils % 0.5 % (0-4.4); Hematocrit 39.8 % (36.0-45.0); Lymphocytes % 7.5 % (15.3-44.8); MCH 25.9 pg (27.0-35.0); MCV 82.3 fL (80-100); MPV 8.6 fL (7.6-11.3); Monocytes % 9.3 % (3.3-12.3); RBC Red Blood Cell Count 4.83 M/uL (3.86-4.86)
[2018-05-02 13:32] LABS: Protime INR 1.77
[2018-05-02 13:45] LABS: Albumin 3.1 g/dL (3.4-5.0); Bilirubin Direct 0.5 mg/dL (0-0.2); CKMB Creatine Kinase MB 3.3 ng/mL (0.3-3.6); Magnesium 2.2 mg/dL (1.8-2.4); Potassium 4.5 mmol/L (3.5-5.1); Protein, Total 7.4 g/dL (6.4-8.2); Troponin (Emerg Dept Use Only) 0.04 ng/mL (0.0-0.045)
[2018-05-02] MEDS ORDERED: FUROSEMIDE 40 MG/4 ML VIAL ONE (14:50)
[2018-05-02 15:22] LABS: Urine Blood TRACE (NEG); Urine Glucose NEGATIVE (NEG); Urine Protein 1+ (NEG); Urine pH 5.5 (5.0-7.0)
--- NOTE | 2018-05-02 15:42 | EDPHYS ---
Physician Documentation [facility] Name: Juvenal Engle Age: 83 yrs Sex: Female : 1935 Arrival Date: 05/02/2018 Time: 12:48 Bed 5 Private MD: ED Physician Bill Hamilton HPI: 05/02 15:00 This 83 yrs old Female presents to ER via EMS with complaints of Shortness Of pm1 Breath. 15:00 The patient has shortness of breath at rest. Onset: The symptoms/episode began/occurred pm1 3 day(s) ago. Duration: The symptoms are continuous, Worse today. The patient's shortness of breath has no apparent modifying factors. Associated signs and symptoms: Pertinent positives: productive cough, Pertinent negatives: fever, nausea, vomiting. Severity of symptoms: in the emergency department the symptoms are worse Pain is currently a 0 / 10. The patient has experienced similar episodes in the past, a few times. The patient has not recently seen a physician, the patient's primary care provider is Dr. Persaud. Historical: - Allergies: 12:55 Amitriptyline; aa5 12:55 propafenone HCl; aa5 12:55 rosiglitazone maleate; aa5 12:55 Rythmol; aa5 12:55 sitagliptin phosphate; aa5 12:55 Tape; aa5 12:55 Januvia; aa5 - Home Meds: 12:55 Eliquis oral oral [Active]; Lasix 40 mg Oral tab 1 tab once daily [Active]; aa5 lansoprazole 30 mg Oral cpDR 1 cap once daily [Active]; alprazolam 0.5 mg Oral tab as needed [Active]; gabapentin 100 mg oral cap [Active]; carvedilol 6.25 mg Oral tab 1 tab nightly [Active]; atorvastatin 40 mg Oral tab 1 tab once daily [Active]; lantus sliding scale per glucometer reading [Active]; - PMHx: 12:55 Anemia; Anxiety; Cancer, Lung; Diabetes - IDDM; GERD; hital hernia; Hypertension; aa5 - PSHx: 12:55 Pacemaker; aa5 - Immunization history:: Adult Immunizations up to date, Pneumococcal vaccine is up to date, Flu vaccine is up to date. - Ebola Screening: : No symptoms or risks identified at this time. - Social history:: Smoking status: Patient/guardian denies using tobacco, but has a distant history of tobacco abuse. ROS: 15:00 Constitutional: Negative for fever, chills, and weight loss, Eyes: Negative for injury, pm1 pain, redness, and discharge, ENT: Negative for injury, pain, and discharge, Neck: Negative for injury, pain, and swelling, Cardiovascular: Negative for chest pain, palpitations, and edema. 15:00 Abdomen/GI: Negative for abdominal pain, nausea, vomiting, diarrhea, and constipation, Back: Negative for injury and pain, : Negative for injury, bleeding, discharge, and swelling, MS/Extremity: Negative for injury and deformity, Skin: Negative for injury, rash, and discoloration, Neuro: Negative for headache, weakness, numbness, tingling, and seizure. 15:00 Respiratory: Positive for cough, with white sputum, shortness of breath. Exam: 15:00 Constitutional: This is a well developed, well nourished patient who is awake, alert, pm1 and in no acute distress. Head/Face: Normocephalic, atraumatic. Eyes: Pupils equal round and reactive to light, extra-ocular motions intact. Lids and lashes normal. Conjunctiva and sclera are non-icteric and not injected. Cornea within normal limits. Periorbital areas with no swelling, redness, or edema. ENT: Nares patent. No nasal discharge, no septal abnormalities noted. Tympanic membranes are normal and external auditory canals are clear. Oropharynx with no redness, swelling, or masses, exudates, or evidence of obstruction, uvula midline. Mucous membranes moist. Neck: Trachea midline, no thyromegaly or masses palpated, and no cervical lymphadenopathy. Supple, full range of motion without nuchal rigidity, or vertebral point tenderness. No Meningismus. Chest/axilla: Normal chest wall appearance and motion. Nontender with no deformity. No lesions are appreciated. Cardiovascular: Regular rate and rhythm with a normal S1 and S2. No gallops, murmurs, or rubs. Normal PMI, no JVD. No pulse deficits. 15:00 Abdomen/GI: Soft, non-tender, with normal bowel sounds. No distension or tympany. No guarding or rebound. No evidence of tenderness throughout. Back: No spinal tenderness. No costovertebral tenderness. Full range of motion. Skin: Warm, dry with normal turgor. Normal color with no rashes, no lesions, and no evidence of cellulitis. MS/ Extremity: Pulses equal, no cyanosis. Neurovascular intact. Full, normal range of motion. 15:00 Respiratory: the patient does not display signs of respiratory distress, Breath sounds: rales, that are mild, are heard diffusely. 15:00 Neuro: Orientation: is normal, appropriate for stated age, Motor: moves all fours, Sensation: is normal, no obvious gross deficits. Vital Signs: 12:50 BP 172 / 79; Pulse 72; Resp 30 S; Temp 97.5(O); Pulse Ox 98% on Non-rebreather mask; aa5 13:50 BP 148 / 70; Pulse 70; Resp 26 S; Pulse Ox 94% on 4 lpm NC; aa5 14:45 BP 124 / 73; Pulse 70; Resp 24 S; Pulse Ox 96% on 4 lpm NC; aa5 14:52 BP 117 / 68; Pulse 70; Resp 24 S; Pulse Ox 96% on 4 lpm NC; aa5 15:30 BP 135 / 92; Pulse 70; Resp 22 S; Pulse Ox 98% on 4 lpm NC; aa5 16:15 BP 125 / 63; Pulse 70; Resp 22 S; Pulse Ox 97% on 4 lpm NC; aa5 17:00 BP 117 / 59; Pulse 70; Resp 20 S; Pulse Ox 98% on 4 lpm NC; aa5 20:00 BP 111 / 53; Pulse 70; Resp 20; Pulse Ox 98% on 4 lpm NC; jb4 20:45 BP 113 / 53; Pulse 70; Resp 18; Pulse Ox 99% on 4 lpm NC; jb4 MDM: 12:56 Patient medically screened. pm1 15:38 Data reviewed: vital signs. Data interpreted: Pulse oximetry: on 2L(s) per nasal pm1 canula, is 96 %. Interpretation: normal. 15:38 Counseling: I had a detailed discussion with the patient and/or guardian regarding: the pm1 historical points, exam findings, and any diagnostic results supporting the discharge/admit diagnosis, lab results, radiology results. 16:55 Physician consultation: Kaity Fernandez MD was called at 16:50, was contacted at 16:55, pm1 regarding admission, and will see patient. 05/02 12:56 Order name: Basic Metabolic Panel; Complete Time: 14:14 pm1 05/02 12:56 Order name: CBC with Diff; Complete Time: 14:14 pm1 05/02 12:56 Order name: Ckmb; Complete Time: 14:14 pm1 05/02 12:56 Order name: CPK; Complete Time: 14:14 pm1 05/02 12:56 Order name: LFT's; Complete Time: 14:14 pm1 05/02 12:56 Order name: Magnesium; Complete Time: 14:14 pm1 05/02 12:56 Order name: NT PRO-BNP; Complete Time: 14:14 pm1 05/02 12:56 Order name: PT-INR; Complete Time: 14:14 pm1 05/02 12:56 Order name: Ptt, Activated; Complete Time: 14:14 pm1 05/02 12:56 Order name: Troponin (emerg Dept Use Only); Complete Time: 14:14 pm1 05/02 12:57 Order name: Blood Culture Adult (2) pm1 05/02 12:57 Order name: Procalcitonin; Complete Time: 14:14 pm1 05/02 12:57 Order name: Lactate; Complete Time: 14:14 pm1 05/02 15:02 Order name: Urine Microscopic Only bd 05/02 12:56 Order name: XRAY Chest (1 view); Complete Time: 18:12 pm1 05/02 12:56 Order name: EKG; Complete Time: 12:57 pm1 05/02 15:19 Order name: Urine Dipstick--Ancillary (enter results); Complete Time: 15:29 bd 05/02 17:19 Order name: Echo with Doppler EDMS 05/02 17:19 Order name: CBC with Automated Diff EDMS 05/02 17:19 Order name: CBC with Automated Diff EDMS 05/02 17:19 Order name: CBC with Automated Diff EDMS 05/02 17:19 Order name: CBC with Automated Diff EDMS 05/02 17:19 Order name: Comprehensive Metabolic Panel EDMS 05/02 17:19 Order name: Comprehensive Metabolic Panel EDMS 05/02 17:19 Order name: Comprehensive Metabolic Panel EDMS 05/02 17:19 Order name: Comprehensive Metabolic Panel EDMS 05/02 12:56 Order name: Cardiac monitoring; Complete Time: 13:03 pm1 05/02 12:56 Order name: EKG - Nurse/Tech; Complete Time: 13:03 pm1 05/02 12:56 Order name: IV Saline Lock; Complete Time: 13:04 pm1 05/02 12:56 Order name: Labs collected and sent; Complete Time: 13:04 pm1 05/02 12:56 Order name: O2 Per Protocol; Complete Time: 13:03 pm1 05/02 12:56 Order name: O2 Sat Monitoring; Complete Time: 13:03 pm1 05/02 12:56 Order name: Urine Dipstick-Ancillary (obtain specimen); Complete Time: 15:29 pm05/02 15:06 Order name: Salcedo: VO received at 1440; Complete Time: 15:06 [facility] 05/02 17:08 Order name: Salcedo: D/C Salcedo; Complete Time: 17:34 [facility] 05/02 17:19 Order name: CONS Physician Consult EDMS 05/02 17:19 Order name: Consistent Carb (ADA) 1800 Cesar EDMS Administered Medications: 13:08 Drug: Albuterol 2.5 mg Route: Inhalation; aa5 21:29 Follow up: Response: No adverse reaction jb4 13:08 Drug: AtroVENT Aerosol 0.5 mg Route: Inhalation; aa5 21:29 Follow up: Response: No adverse reaction jb4 14:46 Drug: Lasix 40 mg Route: IVP; Site: left antecubital; aa5 14:55 Follow up: Response: No adverse reaction aa5 17:25 Drug: Rocephin 1 grams Route: IV; Rate: calculated rate; Site: left antecubital; aa5 17:35 Follow up: Response: No adverse reaction aa5 17:55 Follow up: Response: No adverse reaction; IV Status: Completed infusion; IV Intake: jb4 10ml ; Given IVP per pharmacy protocol. Point of Care Testing: Blood Glucose: 13:15 Blood Glucose: 120 mg/dL; aa5 Ranges: Critical Glucose Levels:Adult <50 mg/dl or >400 mg/dl <40 mg/dl or >180 mg/dl Disposition: 05/03 06:39 Co-signature as Attending Physician, Bill VALDEZ I agree with the assessment and tyree plan of care. Disposition: 05/02/18 15:41 Hospitalization ordered by Kaity Fernandez for Observation. 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 - Bed requested for Telemetry/MedSurg (observation). - Status is Observation. jb4 - Condition is Stable. - Problem is new. - Symptoms have improved. UTI on Admission? No Signatures: Dispatcher [employer] EDMS Bill Hamilton MD MD cha Calderon, Audri, RN RN aa5 Kim Stauffer, RN RN Bharathi Saavedra NP RACKMAN pm1 Addy Boswell, NATHANIEL RN jb4 Corrections: (The following items were deleted from the chart) 05/02 21:18 15:41 Hospitalization Ordered by Kaity Fernandez MD for Observation. Preliminary diagnosis cg is Combined systolic (congestive) and diastolic (congestive) heart failure. Bed requested for Telemetry/MedSurg (observation). Status is Observation. Condition is Stable. Problem is new. Symptoms have improved. UTI on Admission? No. pm1 22:17 21:18 05/02/2018 15:41 Hospitalization Ordered by Kaity Fernandez MD for Observation. 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 Bed requested for Telemetry/MedSurg (observation). Status is Observation. Condition is Stable. Problem is new. Symptoms have improved. UTI on Admission? No. cg
--- NOTE | 2018-05-02 15:42 | ER ---
Nurse's Notes [facility] Name: Juvenal Engle Age: 83 yrs Sex: Female : 1935 Arrival Date: 05/02/2018 Time: 12:48 Bed 5 Private MD: Diagnosis: Combined systolic (congestive) and diastolic (congestive) heart failure Presentation: 05/02 12:48 Presenting complaint: EMS states: productive cough and SOB x 3 days ago. EMS reports pt aa5 was 88% O2 sat via 2 L NC upon scene arrival and increased to 96% via non-rebreather. 12:48 Transition of care: patient was not received from another setting of care. Onset of aa5 symptoms was April 2018. Risk Assessment: Do you want to hurt yourself or someone else? Patient reports no desire to harm self or others. Care prior to arrival: IV initiated. 20 GA, in the left antecubital area, Glucose check: 172 Oxygen administered. via nasal cannula. 12:48 Method Of Arrival: EMS: [facility] aa5 12:48 Acuity: KENDALL 2 aa5 12:48 Initial Sepsis Screen: Does the patient meet any 2 criteria? RR > 20 per min. Yes Does aa5 the patient have a suspected source of infection? Yes: Productive cough/pneumonia. Triage Assessment: 13:00 Respiratory: Onset: The symptoms/episode began/occurred 3 days ago , the patient has aa5 moderate shortness of breath. Historical: - Allergies: 12:55 Amitriptyline; aa5 12:55 propafenone HCl; aa5 12:55 rosiglitazone maleate; aa5 12:55 Rythmol; aa5 12:55 sitagliptin phosphate; aa5 12:55 Tape; aa5 12:55 Januvia; aa5 - Home Meds: 12:55 Eliquis oral oral [Active]; Lasix 40 mg Oral tab 1 tab once daily [Active]; aa5 lansoprazole 30 mg Oral cpDR 1 cap once daily [Active]; alprazolam 0.5 mg Oral tab as needed [Active]; gabapentin 100 mg oral cap [Active]; carvedilol 6.25 mg Oral tab 1 tab nightly [Active]; atorvastatin 40 mg Oral tab 1 tab once daily [Active]; lantus sliding scale per glucometer reading [Active]; - PMHx: 12:55 Anemia; Anxiety; Cancer, Lung; Diabetes - IDDM; GERD; hital hernia; Hypertension; aa5 - PSHx: 12:55 Pacemaker; aa5 - Immunization history:: Adult Immunizations up to date, Pneumococcal vaccine is up to date, Flu vaccine is up to date. - Ebola Screening: : No symptoms or risks identified at this time. - Social history:: Smoking status: Patient/guardian denies using tobacco, but has a distant history of tobacco abuse. Screenin:00 Abuse screen: Denies threats or abuse. Nutritional screening: No deficits noted. aa5 Tuberculosis screening: No symptoms or risk factors identified. Fall Risk Fall in past 12 months (25 points). IV access (20 points). Total Navarrete Fall Scale indicates High Risk Score (45 or more points). Fall prevention measures have been instituted. Side Rails Up X 2 Placed Close to Nursing Station. Assessment: 13:00 General: Appears distressed, uncomfortable, Behavior is calm, cooperative. Pain: Denies aa5 pain. Neuro: Level of Consciousness is awake, alert, obeys commands, Oriented to person, place, time, situation. Cardiovascular: Heart tones S1 S2 present Rhythm is paced. Respiratory: Reports shortness of breath cough that is productive, Airway is patent Respiratory effort is labored, Respiratory pattern is tachypnea Breath sounds with crackles bilaterally. Breath sounds with wheezes bilaterally. GI: Abdomen is obese, Bowel sounds present X 4 quads. Abd is soft and non tender X 4 quads. Patient currently denies nausea, vomiting. : No signs and/or symptoms were reported regarding the genitourinary system. EENT: No signs and/or symptoms were reported regarding the EENT system. Derm: Skin is pink, warm \T\ dry. bruising that is petechiae noted to mago shins. Musculoskeletal: Range of motion: intact in all extremities. 13:50 Reassessment: Patient states feeling better. General: Appears comfortable. Neuro: Level aa5 of Consciousness is awake, alert, obeys commands, Oriented to person, place, time, situation. Cardiovascular: Rhythm is paced. Respiratory: Airway is patent Respiratory effort is even, unlabored, Respiratory pattern is tachypnea Breath sounds with crackles bilaterally. Breath sounds with wheezes bilaterally. Derm: Skin is pink, warm \T\ dry. 14:45 Reassessment: Patient and/or family updated on plan of care and expected duration. Pain aa5 level reassessed. Patient is alert, oriented x 3, equal unlabored respirations, skin warm/dry/pink. Patient denies pain at this time. Patient states feeling better. 15:30 Reassessment: Patient and/or family updated on plan of care and expected duration. Pain aa5 level reassessed. Patient is alert, oriented x 3, equal unlabored respirations, skin warm/dry/pink. Patient denies pain at this time. Family at bedside conversating with patient. 16:30 Reassessment: Patient and/or family updated on plan of care and expected duration. Pain aa5 level reassessed. Patient is alert, oriented x 3, equal unlabored respirations, skin warm/dry/pink. Patient denies pain at this time. Cardiovascular: Rhythm is Paced. 17:25 Reassessment: Pt resting in bed with eyes closed, respirations are even and unlabored, aa5 skin is pink/warm/dry. Bed remains in low position, side rails x 2, call ornelas within reach. 19:30 General: Appears in no apparent distress. comfortable, Behavior is calm, cooperative. jb4 Pain: Denies pain. Neuro: Level of Consciousness is awake, alert, obeys commands, Oriented to person, place, time, situation. Cardiovascular: Heart tones S1 S2 present Rhythm is Respiratory: Airway is patent Respiratory effort is even, unlabored, Respiratory pattern is regular, symmetrical, Breath sounds are clear in right posterior upper lobe and right posterior middle lobe Breath sounds with crackles in right upper lobe, left upper lobe, right middle lobe, left lower lobe, right lower lobe, left posterior upper lobe, left posterior lower lobe and right posterior lower lobe. GI: No signs and/or symptoms were reported involving the gastrointestinal system. : No signs and/or symptoms were reported regarding the genitourinary system. EENT: No signs and/or symptoms were reported regarding the EENT system. Derm: Skin is intact, Skin is pink, warm \T\ dry. Musculoskeletal: Range of motion: intact in all extremities. 20:45 Reassessment: Patient appears in no apparent distress at this time. Patient and/or jb4 family updated on plan of care and expected duration. Pain level reassessed. Patient is alert, oriented x 3, equal unlabored respirations, skin warm/dry/pink. Patient denies pain at this time. 21:39 Reassessment: Attempted to call report. Charge Nurse states unaware of pt admission at jb4 this time and states will call back. 22:10 Reassessment: Patient appears in no apparent distress at this time. Patient is alert, jb4 oriented x 3, equal unlabored respirations, skin warm/dry/pink. Patient denies pain at this time. Vital Signs: 12:50 BP 172 / 79; Pulse 72; Resp 30 S; Temp 97.5(O); Pulse Ox 98% on Non-rebreather mask; aa5 13:50 BP 148 / 70; Pulse 70; Resp 26 S; Pulse Ox 94% on 4 lpm NC; aa5 14:45 BP 124 / 73; Pulse 70; Resp 24 S; Pulse Ox 96% on 4 lpm NC; aa5 14:52 BP 117 / 68; Pulse 70; Resp 24 S; Pulse Ox 96% on 4 lpm NC; aa5 15:30 BP 135 / 92; Pulse 70; Resp 22 S; Pulse Ox 98% on 4 lpm NC; aa5 16:15 BP 125 / 63; Pulse 70; Resp 22 S; Pulse Ox 97% on 4 lpm NC; aa5 17:00 BP 117 / 59; Pulse 70; Resp 20 S; Pulse Ox 98% on 4 lpm NC; aa5 20:00 BP 111 / 53; Pulse 70; Resp 20; Pulse Ox 98% on 4 lpm NC; jb4 20:45 BP 113 / 53; Pulse 70; Resp 18; Pulse Ox 99% on 4 lpm NC; jb4 ED Course: 12:45 Initial lab(s) drawn, by me, sent to lab. First set of blood cultures drawn by me. jb1 12:48 Patient arrived in ED. aa5 12:48 Arm band placed on Patient placed in an exam room, on a stretcher. aa5 12:50 Patient has correct armband on for positive identification. Placed in gown. Bed in low aa5 position. Call light in reach. Side rails up X2. 12:50 monitoring analyst on. Pulse ox on. NIBP on. aa5 12:51 Bharathi Saavedra NP is PHCP. pm1 12:51 Bill Hamilton MD is Attending Physician. pm1 12:54 Scarlett Ly RN is Primary Nurse. aa5 12:56 EKG done, by windmill technician. reviewed by Bharathi Saavedra NP. sm3 12:58 Triage completed. aa5 13:00 Second set of blood cultures drawn by me. jb1 14:27 X-ray completed. Portable x-ray completed in exam room. jr1 14:27 XRAY Chest (1 view) In Process Unspecified. EDMS 14:36 No provider procedures requiring assistance completed. aa5 14:43 Salcedo cath inserted, using sterile technique, 18 Fr., by me, balloon inflated, to aa5 gravity drainage, urine specimen collected. 15:41 Kaity Fernandez MD is Hospitalizing Provider. pm1 17:25 Salcedo cath removed intact, balloon deflated. aa5 19:04 Report given to NATHANIEL Mcdonnell and NATHANIEL Rao. aa5 21:32 Maintain EMS IV. Dressing intact. Good blood return noted. Site clean \T\ dry. Gauge \T\ kev 4 site: 18g LAC. 22:10 Patient admitted, IV remains in place. jb4 Administered Medications: 13:08 Drug: Albuterol 2.5 mg Route: Inhalation; aa5 21:29 Follow up: Response: No adverse reaction jb4 13:08 Drug: AtroVENT Aerosol 0.5 mg Route: Inhalation; aa5 21:29 Follow up: Response: No adverse reaction jb4 14:46 Drug: Lasix 40 mg Route: IVP; Site: left antecubital; aa5 14:55 Follow up: Response: No adverse reaction aa5 17:25 Drug: Rocephin 1 grams Route: IV; Rate: calculated rate; Site: left antecubital; aa5 17:35 Follow up: Response: No adverse reaction aa5 17:55 Follow up: Response: No adverse reaction; IV Status: Completed infusion; IV Intake: jb4 10ml ; Given IVP per pharmacy protocol. Point of Care Testing: Blood Glucose: 13:15 Blood Glucose: 120 mg/dL; aa5 Ranges: Intake: 17:55 IV: 10ml; Total: 10ml. jb4 Outcome: 15:41 Decision to Hospitalize by Provider. pm1 22:10 Admitted to Med/surg accompanied by tech, via wheelchair, room 204, with oxygen, with jb4 chart, Report called to Madeline Waldrop RN 22:10 Condition: stable jb4 22:10 Instructed on the need for admit, Demonstrated understanding of instructions. 22:17 Patient left the ED. jb4 Signatures: Dispatcher [employer] EDMS Jon Mcarthur jb1 Kathia South jr1 Scarlett Ly, RN RN aa5 Bharathi Saavedra, EXAMINER RATING CLERK EXAMINER RATING CLERK pm1 Addy Boswell RN RN jb4 Lisbeth Patel 3 Corrections: (The following items were deleted from the chart) 14:29 13:50 Pulse 70bpm; Resp 26bpm; Spontaneous; Pulse Ox 94% 4 lpm Nasal Cannula; aa5 aa5
--- NOTE | 2018-05-02 16:07 | EKG ---
Test Date: 2018-05-02 Test Time: 12:51:32 [place]: MAGGI MEASUREMENT RESULTS: Intervals: Rate: 70 W[place]: QRSD: 196 QT: 462 QTc: 498 Erhard: P: [place]: QRS: -65 T: 112 INTERPRETIVE STATEMENTS: VENTRICULAR PACED RHYTHM Left axis deviation Left ventricular hypertrophy with QRS widening and repolarization abnormality Lateral infarct, age undetermined Inferior infarct, age undetermined Abnormal ECG Compared to ECG 01/10/2018 13:30:01 [facility] Electronically Signed On 05-02-18 16:06:44 CDT by Sarthak Carrillo
[2018-05-02] MEDS ORDERED: ONDANSETRON 4 MG/2 ML VIAL IV PRN (17:14)
[2018-05-02] MEDS ORDERED: ACETAMINOPHEN 500 MG TAB PO PRN (17:14)
[2018-05-02] MEDS ORDERED: CEFTRIAXONE/SWI 1gm 1 GM/10 ML SYR ONE (17:20)
--- NOTE | 2018-05-02 17:55 | RAD REPORT ---
EXAM DESCRIPTION: RAD - Chest Single View - 05/02/2018 2:27 pm CLINICAL HISTORY: Cough;SOB Chest pain. COMPARISON: Chest Pa And Lat (2 Views) dated 01/10/2018; Chest Single View dated 04/15/2017; CHEST SIN GLE VIEW dated 04/28/2015; CHEST SINGLE VIEW dated 04/27/2015 FINDINGS: Portable technique limits examination quality. Ill-defined right midlung opacity appears similar to comparative study and perhaps mildly reduced in size. Significant cardiomegaly is seen. No displaced fractures.Dual lead pacer device is in place.
[2018-05-02] MEDS ORDERED: GLUCAGON 1 MG/VIAL IM PRN (18:47)
[2018-05-02] MEDS ORDERED: D50W 25 GM/50 ML SYRINGE IV PRN (18:47)
[2018-05-02] MEDS: INSULIN -REGULAR HUMAN 50 UNIT/0.5 ML ML SQ SCH (21:00)
[2018-05-02 22:51] VITALS: BMI 41.8
[2018-05-02] MEDS: FUROSEMIDE 20 MG/ 2ML VIAL IV SCH (23:10)
[2018-05-02] MEDS: CARVEDILOL 6.25 MG TAB PO SCH (23:11)
--- NOTE | 2018-05-03 04:56 | HP ---
Date of Admission: 05/02/2018 Primary Care Physician: Dr. Persaud. Code Status: Full. Chief Complaint: Shortness of breath, congestion. History Of Present Illness: The patient is an 83-year-old female with past medical history of atrial fibrillation on Eliquis, history of lung cancer on the right side, congestive heart failure, obesity , diabetes, history of DVT, hyperlipidemia, kidney disease, comes in with some cough and congestion g oing on for the past day or so. The patient does report some shortness of breath and some chills and subjective fever. Denies any nausea or vomiting. No chest pain. The patient does report some antony a of her feet and states that she has been somewhat compliant with her sodium-restricted and fluid-re stricted diet for her congestive heart failure. The patient's symptoms are constant, moderate, progr essively worsening. Worse with exertion. The patient came into the ER for further evaluation and wo rkup revealed a creatinine of 1.7, which is somewhat elevated and is up from baseline. White count w as 11.5 with a left shift. Her chest x-ray did not show much change from previous x-rays. There is some ill-defined right mid lung opacity, reduced in size, some significant cardiomegaly and pacemaker . The patient was then referred for admission. When seen in the ER, she was awake, alert, oriented x3. Some mild distress. Past Medical History: Congestive heart failure; atrial fibrillation, on anticoagulation with Eliquis ; obesity; diabetes mellitus type 2, non-insulin requiring; history of DVT; hyperlipidemia; kidney di sease; depression and anxiety; hypertension. Past Surgical History: Pacemaker, cataract surgery, right leg fracture. Family History: Father had heart disease and diabetes. Social History: The patient denies any alcohol use, illicit drug use, or tobacco use. Review of Systems: An 11-point system reviewed, negative except as per HPI. Medication List: Reviewed. Physical Examination: Vital Signs: Blood pressure 172/79, pulse 72, respirations 30, temperature 97.5, which is 98% on non -rebreather mask. General: Awake, alert, oriented x3. Some mild distress. Elderly female, ill-appearing. HEENT: Normocephalic, atraumatic. PERRLA. EOMI. Moist mucous membranes. Oropharynx is clear. Po or dentition. Conjunctivae anicteric. Neck: Supple. JVD distention. Trachea midline. CV: S1, S2, irregularly irregular. Peripheral pulses present bilaterally. Respiratory: Diminished breath sounds, worse on the right. No wheezing. The patient is somewhat ta chypneic. Gastrointestinal: Abdomen is soft, nontender, nondistended. Positive bowel sounds. No guarding or rigidity. Extremities: No clubbing, cyanosis. Pedal edema is present. No calf tenderness. Neuro: Cranial nerves 2 through 12 intact grossly. No focal neurological deficit. Speech is normal . Strength is symmetric bilateral upper and lower extremities. Skin: No rashes. Normal skin turgor. Psych: Mood is okay. Affect is full. Insight and judgment are good. Laboratory Data: Sodium 137, potassium 4.5, chloride 106, CO2 26, BUN 44, creatinine 1.7, glucose 12 0, lactate is 1.7, calcium 8.5, magnesium 2.2. BNP 24,891. Albumin 3.1. Procal less than 0.05. IN R 1.77. WBC is 11.5, H and H 12.5 and 39.8, platelets 223, neutrophils 81%. UA: Negative nitrite, negative leukocyte esterase. Differential pending. Chest x-ray shows ill-defined right midlung opac ity similar to comparative study, mildly reduced in size, significant cardiomegaly, and dual lead pac emaker in place. EKG shows a paced rhythm, rate of 70. Assessment And Plan: 1.Acute congestive heart failure exacerbation, unknown, EF 44%, systolic dysfunction. We will repea t echocardiogram. Continue on congestive heart failure guidelines with beta-shaina. Hold BAYLEE inhib itor due to elevated creatinine above baseline. Lasix 20 b.i.d. IV. Cardiology consultation. 2.Atrial fibrillation with controlled ventricular rate. Continue Eliquis. 3.History of deep venous thrombosis, on Eliquis. 4.Diabetes mellitus type 2, non-insulin requiring with hypoglycemia. We will continue sliding scale insulin. 5.Essential hypertension, stable. 6.Mixed hyperlipidemia. Continue home medications. 7.Jarqp-eo-cowctto kidney disease stage 3. Creatinine above baseline. Continue to monitor. Avoid NSAIDs. 8.Depression and anxiety. 9.Status post pacemaker. Plan: Admit the patient to Med-Surg, place as inpatient. The patient did have some respiratory dist ress, was on non-rebreather, has been weaned down to nasal cannula. We will repeat chest x-ray as cl inically indicated. Follow up on blood cultures. Doubt pneumonia. However, patient does have some congestion. Lactate and procal negative. White count only 11.5. The patient did receive dose of Ro cephin. We will continue to monitor, placed on empiric antibiotics until blood cultures are negative . Code status is full. The patient does have a medical power of claim attorney. JUANIS Voice ID: [id number]
[2018-05-03 05:20] LABS: Absolute Lymphocytes (CBC) 1.1 K/uL (0.7-4.9); Absolute Monocytes 0.9 K/uL (0.1-1.3); Absolute Neutrophil 8.2 K/uL (1.8-8.0); Basophils % 0.5 % (0-1.3); Eosinophils % 0.3 % (0-4.4); Hematocrit 32.3 % (36.0-45.0); Lymphocytes % 10.7 % (15.3-44.8); MCH 26.2 pg (27.0-35.0); MCV 81.4 fL (80-100); MPV 8.6 fL (7.6-11.3); Monocytes % 8.9 % (3.3-12.3); RBC Red Blood Cell Count 3.97 M/uL (3.86-4.86)
[2018-05-03 05:53] LABS: Albumin 2.5 g/dL (3.4-5.0); Bilirubin Total 0.8 mg/dL (0.2-1.0); Potassium 4.3 mmol/L (3.5-5.1)
[2018-05-03] MEDS: INSULIN -REGULAR HUMAN 50 UNIT/0.5 ML ML SQ SCH ×4 (07:30→22:07)
[2018-05-03] MEDS: FUROSEMIDE 20 MG/ 2ML VIAL IV SCH ×2 (09:33→17:25)
[2018-05-03] MEDS: CEFTRIAXONE/SWI 1gm 1 GM/10 ML SYR IV SCH ×2 (09:33→22:05)
[2018-05-03] MEDS: CARVEDILOL 6.25 MG TAB PO SCH ×2 (09:34→22:06)
--- NOTE | 2018-05-03 12:24 | ECHO ---
HEIGHT: 4 ft 11 in WEIGHT: 207 lb 0 oz DATE OF STUDY: 05/03/[address]: Kaity Fernandez MD 2-DIMENSIONAL: YES M.MODE: YES DOPPLER: YES COLOR FLOW: YES TDS: NO PORTABLE: NO DEFINITY: NO BUBBLE STUDY: NO DIAGNOSIS: CONGESTIVE HEART FAILURE CARDIAC HISTORY: CATHERIZATION: NO SURGERY: NO PROSTHETIC VALVE: NO PACEMAKER: YES MEASUREMENTS (cm) DIASTOLIC (NORMALS) SYSTOLIC (NORMALS) IVSd 1.6 (0.6-1.2) LA Diam 4.2 (1.9-4.0) LVEF 29% LVIDd 5.1 (3.5-5.7) LVIDs 4.4 (2.0-3.5) %FS 14% LVPWd 1.7 (0.6-1.2) Ao Diam 2.7 (2.0-3.7) 2 DIMENSIONAL ASSESSMENT: RIGHT ATRIUM: NORMAL LEFT ATRIUM: DILATED RIGHT VENTRICLE: NORMAL LEFT VENTRICLE: NORMAL SIZE TRICUSPID VALVE: NORMAL MITRAL VALVE: MITRAL ANNULAR CALCIFICATION PULMONIC VALVE: NORMAL AORTIC VALVE: SCLEROSIS PERICARDIAL EFFUSION: NONE AORTIC ROOT: NORMAL LEFT VENTRICULAR WALL MOTION: SEVERE GLOBAL HYPOKINESIS. DOPPLER/COLOR FLOW: MILD TRICUSPID REGURGITATION, MITRAL REGURGITATION RIGHT VENTRICULAR SYSTOLIC PRESSURE 60mmHg. COMMENTS: SEVERE GLOBAL HYPOKINESIS. EJECTION FRACTION 30%. MITRAL ANNULAR CALCIFICATION. AORTIC SCLEROSIS. MODERATE PULMONARY HYPERTENSION. TECHNOLOGIST: TAMMI BARNHART
[2018-05-03] MEDS: APIXABAN 2.5 MG TABLET PO SCH ×2 (12:36→22:06)
[2018-05-03] MEDS: AMIODARONE HCL 200 MG TAB PO SCH (12:36)
[2018-05-03] MEDS: GABAPENTIN 100 MG CAP PO SCH ×2 (14:43→22:06)
[2018-05-03] MEDS ORDERED: CEFTRIAXONE 1 GM/NS 50 ML 1 GM/50 ML BAG IV SCH (17:00)
--- NOTE | 2018-05-03 18:53 | PN ---
Date of Progress Note: 05/03/2018 Subjective: The patient is seen and examined. Chart was reviewed, and case was discussed with NATHANIEL Carrillo. The patient states her breathing is significantly better. Still having some cough an d congestion. Review of Systems: Negative except as above. Medications: List reviewed. Physical Examination: Vital Signs: Temperature 97, heart rate 70, blood pressure 103/85, respirations 18, O2 of 93% on 3 L via nasal cannula. General: An awake, alert, oriented x3, elderly female, morbidly obese. CV: S1 and S2. Peripheral pulses present. Respiratory: Diminished breath sounds, mild improvement since yesterday. No tachypnea. No stridor. Gastrointestinal: Abdomen is soft, nontender, nondistended. Positive bowel sounds. Extremities: No clubbing or cyanosis. Trace pedal edema. Neurologic: Nonfocal. Laboratory Data: Sodium 139, potassium 4.3, chloride 108, CO2 of 24, BUN 49, creatinine 1.8, glucose 112, calcium 8. AST 14, ALT 15. WBC 10.3, H and H 10.4 and 32.3, platelets 155, neutrophils 79%. Blood cultures, no growth to date. Echocardiogram shows EF 29%, severe global hypokinesis, mitral an nular calcification, aortic sclerosis, moderate pulmonary hypertension. Assessment And Plan: An 83-year-old female with: 1.Acute congestive heart failure exacerbation, systolic dysfunction, EF now dropped down to 29% from previous. Continue with heart failure guidelines, beta-shaina. Hold BAYLEE due to elevated creatinin e and kidney dysfunction. Continue Lasix IV. Monitor I's and O's, daily weights. Appreciate Dr. Jax torrez's input. 2.Severe pulmonary hypertension. 3.Atrial fibrillation with controlled ventricular rate. We will continue Eliquis. 4.History of deep venous thrombosis, on Eliquis. 5.Diabetes mellitus type 2, non-insulin requiring, with hypoglycemia, improved. We will continue sl iding scale insulin. Monitor blood glucose levels. 6.Essential hypertension stable. 7.Mixed hyperlipidemia. Continue home medications. 8.Mmflg-ah-wrphjdy kidney disease stage 3. Creatinine is slightly bumped up today. We will monitor creatinine levels. May need to back off Lasix. We will repeat chest x-ray in a.m. 9.Depression with anxiety. 10.Status post pacemaker. SA/MODL Voice ID: [id number] Report ID: [id number]
[2018-05-03] MEDS: DOCUSATE NA 100 MG CAP PO SCH (22:06)
[2018-05-03] MEDS: ATORVASTATIN 40 MG TAB PO SCH (22:06)
[2018-05-03] MEDS: INSULIN GLARGINE 100 UNITS/ML SQ SCH (22:06)
[2018-05-03] MEDS: ALPRAZOLAM 0.5 MG TABLET PO SCH (22:09)
--- NOTE | 2018-05-04 01:45 | CON ---
Date of Consultation: 05/03/[address] Fernandez's service on 05/02/2018. I saw the patient on 05/03/2018. Reason For Consultation: Congestive heart failure. History Of Present Illness: Ms. Engle is 83. She is known to us from the office with many medical p roblems including lung cancer, anxiety, anemia, gastroesophageal reflux disease. She has aortic sten osis. She has a pacemaker that was just recently replaced in December 2017. She has atrial fibrillation, dyslipidemia, hypertension, and diabetes. She came in with congestive heart failure symptoms. Ches t x-ray shows congestive heart failure. The patient has already improved with diuresis. She denied any chest pain, denied any syncope, denied any palpitations. Past Medical History: As stated above. Allergies: SHE IS ALLERGIC TO AMITRIPTYLINE AND RYTHMOL. Review of Systems: Negative. Social History: Negative. Family History: Noncontributory. Medications: At home include Eliquis, insulin, losartan, Coreg, amiodarone, Norvasc, and Lipitor. Physical Examination: General: She was in no acute distress, appears her stated age. HEENT: Negative. Neck: Supple without any bruit, lymphadenopathy, JVD, or thyromegaly. Chest: Clear to auscultation and percussion. Cardiac: Revealed a regular rhythm and rate with a 2/6 systolic ejection murmur at the right third i ntercostal space radiating to the carotid. Abdomen: Benign. Extremities: Revealed 1+ edema. Skin: Dry and intact. Pulses were adequate distally. Diagnostic Data: Her creatinine was 1.7, white count was 18,000, BNP was 24,891. Echocardiogram tyler t was done showed mild ejection fraction reduction of 48%, pacemaker placement in the right ventricle apex, mild aortic stenosis. Impression And Plan: 1.Mild acute exacerbation of chronic systolic congestive heart failure. 2.Mild aortic stenosis, stable. 3.History of pacemaker placement, recently a generator was replaced in December 2017. 4.Moderate renal insufficiency. 5.Elevated BNP secondary to congestive heart failure. 6.Diabetes. 7.Atrial fibrillation, resolved on amiodarone and Eliquis. 8.Hypertension. 9.Dyslipidemia, well controlled. 10.Mild anemia. 11.Anxiety disorder. 12.Gastroesophageal reflux disease. 13.History of lung cancer. I agree with her present regimen. Hopefully, she can go home sometime t montez or tomorrow. When she goes home, I think we need to add Lasix to her regimen at 40 mg daily, an d I will see her in the office in the next 2 to 4 weeks. EVE/JOHNNY Voice ID: [id number] Report ID: [id number]
[2018-05-04] MEDS: PANTOPRAZOLE 40MG TABLET PO SCH (05:20)
[2018-05-04 05:31] LABS: Absolute Lymphocytes (CBC) 0.8 K/uL (0.7-4.9); Absolute Monocytes 0.6 K/uL (0.1-1.3); Absolute Neutrophil 3.6 K/uL (1.8-8.0); Basophils % 0.5 % (0-1.3); Eosinophils % 1.5 % (0-4.4); Hematocrit 30.9 % (36.0-45.0); Lymphocytes % 15.1 % (15.3-44.8); MCH 26.4 pg (27.0-35.0); MCV 81.3 fL (80-100); MPV 8.8 fL (7.6-11.3); Monocytes % 11.1 % (3.3-12.3); RBC Red Blood Cell Count 3.81 M/uL (3.86-4.86)
[2018-05-04 05:39] LABS: Albumin 2.5 g/dL (3.4-5.0); Bilirubin Total 0.5 mg/dL (0.2-1.0); Potassium 4.5 mmol/L (3.5-5.1); Protein, Total 6.1 g/dL (6.4-8.2)
[2018-05-04] MEDS ORDERED: ALBUMIN HUMAN 25% 100 ML IV ONE (06:53)
[2018-05-04] MEDS ORDERED: NA CHLORIDE 0.9% 250 ML IV ONE (06:53)
[2018-05-04] MEDS: INSULIN -REGULAR HUMAN 50 UNIT/0.5 ML ML SQ SCH ×4 (07:30→22:41)
[2018-05-04] MEDS: ALPRAZOLAM 0.5 MG TABLET PO SCH ×2 (08:50→22:40)
[2018-05-04] MEDS: GABAPENTIN 100 MG CAP PO SCH ×3 (08:50→22:39)
[2018-05-04] MEDS: APIXABAN 2.5 MG TABLET PO SCH ×2 (08:51→22:40)
[2018-05-04] MEDS: DOCUSATE NA 100 MG CAP PO SCH ×2 (08:52→21:00)
[2018-05-04] MEDS: AMIODARONE HCL 200 MG TAB PO SCH (08:52)
[2018-05-04] MEDS: SERTRALINE HCL 50 MG TAB PO SCH (08:53)
[2018-05-04] MEDS: SPIRONOLACTONE 25 MG TABLET PO SCH (08:55)
[2018-05-04] MEDS: CARVEDILOL 6.25 MG TAB PO SCH ×2 (08:57→22:40)
--- NOTE | 2018-05-04 08:59 | RAD REPORT ---
EXAM DESCRIPTION: Yehuda Single View05/04/2018 6:08 am CLINICAL HISTORY: Shortness of breath COMPARISON: May 02, 2018 FINDINGS: No significant change has occurred in the mid right lung opacities. The left lung appears clear of acute infiltrate. The heart is moderately enlarged. Pacemaker leads are in place IMPRESSION: No change in a mid right lung opacity. This may represent pneumonia, mass or loculated f luid within the fissure.
[2018-05-04] MEDS: CEFTRIAXONE/SWI 1gm 1 GM/10 ML SYR IV SCH ×2 (09:00→22:42)
[2018-05-04] MEDS ORDERED: LANSOPRAZOLE PO SCH (09:00)
[2018-05-04] MEDS: FUROSEMIDE 20 MG/ 2ML VIAL IV SCH (09:06)
[2018-05-04 15:42] LABS: Potassium 4.9 mmol/L (3.5-5.1)
[2018-05-04] MEDS: NA CHLORIDE 0.9% 1,000 ML IV SCH ×2 (16:45→22:39)
--- NOTE | 2018-05-04 21:56 | PN ---
Date of Progress Note: 05/04/2018 Subjective: The patient seen and examined. Chart reviewed and case discussed with RN. The patient states she is doing okay. No complaints. Breathing is better. Edema has improved. Review of Systems: Negative except as above. Medications: List reviewed. Physical Examination: Vital Signs: Temperature 97.7, heart rate 72, blood pressure 102/56, respirations 18, O2 96% on 2 L via nasal cannula. General: Awake, alert, oriented x3, elderly female, morbidly obese. CV: S1, S2. No murmurs. Respiratory: Diminished breath sounds. No wheezing. No crackles. Gastrointestinal: Abdomen soft, nontender, nondistended. Positive bowel sounds. Extremities: No clubbing, cyanosis, or edema. Neuro: Nonfocal. Laboratory Data: Sodium 137, potassium 4.9, chloride 107, CO2 23, BUN 60, creatinine 2.2, glucose 26 2, calcium 8. WBC 5, H and H 10.1/30.9, platelets 155. Blood cultures, no growth to date. Chest x- ray personally reviewed shows no change in mid right lung opacity, may represent pneumonia or loculated fluid within the fissure. Echocardiogram shows EF of 29%, moderate pulmonary hypertens ion. Assessment And Plan: An 83-year-old female with: 1.Acute congestive heart failure exacerbation, systolic dysfunction, ejection fraction 29%. Continu e beta-shaina. Hold BAYLEE inhibitor, and Lasix was discontinued due to worsening kidney function. Th e patient is on spironolactone. Continue to monitor I's and O's, daily weights. Cardiology on board . 2.Acute on chronic kidney injury stage 3. Creatinine worsening today. We will get Nephrology invol tho. Start on some IV fluids. Gentle IV fluid hydration. 3.Severe pulmonary hypertension. 4.Atrial fibrillation with controlled ventricular rate. Continue Eliquis. 5.History of deep venous thrombosis, on Eliquis. 6.Diabetes mellitus type 2, hqm-lripxhv-lvacwubet with hypoglycemia improved, now hyperglycemia. We will continue sliding scale insulin. 7.Essential hypertension, stable. 8.Mixed hyperlipidemia. We will continue home medications. 9.Depression with anxiety. 10.Status post pacemaker. Plan: Normal IV fluids. Monitor kidney function. Nephrology consultation. /MODL Voice ID: [id number] Report ID: [id number]
[2018-05-04] MEDS: ATORVASTATIN 40 MG TAB PO SCH (22:40)
[2018-05-04] MEDS: INSULIN GLARGINE 100 UNITS/ML SQ SCH (22:41)
[2018-05-05] MEDS: PANTOPRAZOLE 40MG TABLET PO SCH (06:30)
[2018-05-05] MEDS: INSULIN -REGULAR HUMAN 50 UNIT/0.5 ML ML SQ SCH ×3 (07:30→16:07)
[2018-05-05] MEDS: ALPRAZOLAM 0.5 MG TABLET PO SCH (09:00)
[2018-05-05] MEDS: DOCUSATE NA 100 MG CAP PO SCH (09:00)
[2018-05-05] MEDS: APIXABAN 2.5 MG TABLET PO SCH (09:36)
[2018-05-05] MEDS: CARVEDILOL 6.25 MG TAB PO SCH (09:36)
[2018-05-05] MEDS: AMIODARONE HCL 200 MG TAB PO SCH (09:36)
[2018-05-05] MEDS: SPIRONOLACTONE 25 MG TABLET PO SCH (09:36)
[2018-05-05] MEDS: SERTRALINE HCL 50 MG TAB PO SCH (09:36)
[2018-05-05] MEDS: GABAPENTIN 100 MG CAP PO SCH ×2 (09:36→14:00)
[2018-05-05] MEDS: CEFTRIAXONE/SWI 1gm 1 GM/10 ML SYR IV SCH (09:36)
[2018-05-05 09:56] LABS: Absolute Lymphocytes (CBC) 1.1 K/uL (0.7-4.9); Absolute Monocytes 0.7 K/uL (0.1-1.3); Absolute Neutrophil 5.2 K/uL (1.8-8.0); Basophils % 0.4 % (0-1.3); Eosinophils % 1.2 % (0-4.4); Hematocrit 35.8 % (36.0-45.0); MCV 82.5 fL (80-100); Monocytes % 10.5 % (3.3-12.3); RBC Red Blood Cell Count 4.34 M/uL (3.86-4.86)
[2018-05-05 10:32] VITALS: O2SAT 96
[2018-05-05 11:18] LABS: Albumin 2.8 g/dL (3.4-5.0); Bilirubin Total 0.5 mg/dL (0.2-1.0); Potassium 5.1 mmol/L (3.5-5.1); Protein, Total 6.8 g/dL (6.4-8.2)
[2018-05-05 13:09] VITALS: TEMP 97.8
[2018-05-05] MEDS ORDERED: SOD POLYSTYREN SUL 15 GM/60 ML UCUP PO ONE (14:34)
--- NOTE | 2018-05-05 17:03 | P.CNS ---
Date of Consult: 05/05/18 Reason for Consult: QUINTIN/ CKD Requesting Physician: Kaity Fernandez Chief Complaint: Dyspnea History of Present Illness: 15:00 This 83 yrs old Female presents to ER via EMS with complaints of Shortness Of pm1 Breath. 15:00 The patient has shortness of breath at rest. Onset: The symptoms/episode began/occurred pm1 3 day(s) ago. Duration: The symptoms are continuous, Worse today. The patient's shortness of breath has no apparent modifying factors. Associated signs and symptoms: Pertinent positives: productive cough, Pertinent negatives: fever, nausea , vomiting. Severity of symptoms: in the emergency department the symptoms are worse Pain is currently a 0 / 10. The patient has experienced similar episodes in the past, a few times. The patient has not recently seen a physician, the patient's primary care provider is Dr. Persaud. Allergies amitriptyline Allergy (Verified 05/02/18 22:33) Unknown rosiglitazone maleate [From Avandia] Allergy (Verified 05/02/18 22:33) Anaphylaxis sitagliptin phosphate [From Januvia] Allergy (Verified 05/02/18 22:33) Nausea/Vomiting propafenone HCl [From Rythmol] Adverse Reaction (Verified 05/02/18 22:33) Shortness of breath Tape Allergy (Uncoded 05/02/18 22:33) Itching/Hives/Rash Home medications list reviewed: Yes Home Medications: ALPRAZolam [Xanax*] 1 tab PO BEDTIME 05/03/18 ALPRAZolam [Xanax*] 1 tab PO DAILY 05/03/18 Amiodarone HCl [Cordarone*] 200 mg PO DAILY 05/03/18 Apixaban [Eliquis *] 0.5 mg PO BID 05/03/18 Atorvastatin Calcium [Lipitor] 1 tab PO DAILY 05/03/18 Carvedilol [Coreg*] 1 tab PO BID 05/03/18 Docusate [Colace Cap*] 1 tab PO BID 05/03/18 Furosemide [Lasix] 1 tab PO DAILY 05/03/18 Gabapentin [Neurontin*] 100 mg PO TID 05/03/18 Insulin Glargine,Hum.rec.anlog [Lantus] 30 unit SQ BEDTIME 05/03/18 L. Acidophilus/L. Rhamnosus [Probiotic 15 Billion Cell Cap] 1 cap PO DAILY 05/03 Lansoprazole [Prevacid] 1 cap PO DAILY 05/03/18 Sertraline [Zoloft*] 50 mg PO DAILY 05/03/18 - Past Medical/Surgical History Diabetic: Yes -: DVT -: DM -: HTN -: Atrial fibrillation -: Congestive heart failure -: hyperlipidemia -: Kidney disease -: pneumonia -: depression/anxiety -: Pacemaker -: Cataract sx -: R. leg fracture -: left hip surgery - Family History Mother Medical History: Cancer Notes: cervical cancer Father Medical History: Heart disease, Diabetes - Social History Smoking Status: Unknown if ever smoked Alcohol use: No CD- Drugs: No Caffeine use: Yes Place of Residence: Home Review of Systems 10-point ROS is otherwise unremarkable General: Weakness, Malaise Respiratory: SOB with Excertion Cardiovascular: Edema Neurological: Weakness Physical Examination Temp Pulse Resp BP Pulse Ox 97.8 F 80 18 134/77 95 05/05/18 12:00 05/05/18 12:00 05/05/18 12:00 05/05/18 12:00 05/05/18 12:00 General: Alert, In no apparent distress, Oriented x3 HEENT: Atraumatic, Mucous membr. moist/pink Neck: Supple, JVD distended Respiratory: Clear to auscultation bilaterally Cardiovascular: Regular rate/rhythm, No rubs, Edema Gastrointestinal: Soft and benign, Non-distended (Large), No guarding Musculoskeletal: No clubbing, No contractures, No warmth Integumentary: No rashes, No cyanosis Neurological: Normal speech Blood work reviewed in the chart. Cr 2.10 Imagings Data: Reason for Exam: SOB Report Status: Signed EXAM DESCRIPTION: Yehuda Single View05/04/2018 6:08 am CLINICAL HISTORY: Shortness of breath COMPARISON: May 02, 2018 FINDINGS: No significant change has occurred in the mid right lung opacities. The left lung appears clear of acute infiltrate. The heart is moderately enlarged. Pacemaker leads are in place IMPRESSION: No change in a mid right lung opacity. This may represent pneumonia , mass or loculated fluid within the fissure. Conclusions/Impression: A/ QUINTIN likely CRS, improving. CKD III with proteinuria. Hyperkalemia. Systolic CHF, chronic. Pulmonary HTN. HTN with CKD. DM II with CKD. Morbid Obesity. P/ Continue current POC and Medications. AM labs. Daily weight. No NSAIDs. Stop spironolactone. Give Kayexalate 15g X1. Restart Furosemide on discharge. Hold IVF and diuretics at this time. Thank you kindly for the consultation. Case discussed with Dr. Fernandez.
[2018-05-05 17:55] VITALS: BP 126/65
--- NOTE | 2018-05-06 06:53 | DS ---
Date of Discharge: 05/05/2018 Consultants: Dr. Alatorre with Nephrology and Dr. Carrillo with Cardiology. Admitting Diagnoses: 1.Acute congestive heart failure exacerbation, systolic dysfunction, improved. 2.Atrial fibrillation with controlled ventricular rate, on Eliquis. 3.History of deep venous thrombosis, on Eliquis. 4.Diabetes mellitus type 2, non-insulin requiring with hypoglycemia. 5.Essential hypertension. 6.Mixed hyperlipidemia. 7.Acute on chronic kidney disease, stage 3. 8.Depression and anxiety. 9.Status post pacemaker. Discharge Diagnoses: 1.Acute systolic heart failure exacerbation, ejection fraction 29%. 2.Severe pulmonary hypertension. 3.Acute on chronic kidney injury, stage 3. 4.Atrial fibrillation with controlled ventricular rate, chronic, on Eliquis. 5.History of deep venous thrombosis, on anticoagulation. 6.Diabetes mellitus type 2, lhv-mnbiuri-tbswxpdvo with hyperglycemia. 7.Essential hypertension. 8.Mixed hyperlipidemia. 9.Depression and anxiety. 10.Status post pacemaker. Hospital Course: The patient is an 83-year-old female who came in with shortness of breath and conge stion. Chest x-ray showed some ill-defined lung opacity. However, the patient's symptoms were more consistent with CHF. She had an elevated BNP. She was started on gentle diuresis with Lasix and CHF guidelines. BAYLEE inhibitor was held due to her creatinine being above the baseline. Cardiology was consulted. She had an echocardiogram done which showed EF of 29%. Spironolactone was added; however , due to her hyperkalemia, it had to be discontinued. Other comorbid conditions remained stable. He r repeat chest x-ray did show some improvement, but a consistent right-sided opacity. The patient di d have some urinary retention, however was able to urinate and did not need a Salcedo catheter to be pl aced. The patient is also on supplemental oxygen at home, which will be continued. The patient did well overall and had blood cultures that were negative. I did not feel this to be pneumonia. The venkata jorgito was counseled regarding her fluid restricted low-sodium diet, she was understanding. The patie nt is able to ambulate without any significant difficulty and she was feeling back to her baseline. She was also seen by Dr. Alatorre for her acute on chronic kidney injury. She did have some improveme nt in her kidney function and was back to baseline. She was then cleared for discharge, sent home in a stable condition. Activity: Fall precautions. Diet: Low sodium. Followup: Follow up with primary care physician in 2-3 days. Follow up with plunger machine operator, Dr. Magdalena luz, in 2 weeks. Return to ER for worsening condition. Follow up with drying machine operator, Dr. Carrillo, in 2 weeks. Medications: As per medication reconciliation list. Total time spent discharging the patient was 32 minutes. Physical Examination: General: Awake, alert, oriented x3. No acute distress. Elderly female. CV: S1, S2. Irregularly irregular. Peripheral pulses present. Respiratory: Moving air well bilaterally. Some diminished breath sounds on the right base. Gastrointestinal: Abdomen is soft, nontender, nondistended. Positive bowel sounds. Extremities: No clubbing, cyanosis, edema. Neurologic: Nonfocal. SA/MODL Voice ID: [id number] Report ID: [id number]
== END 2018-05-05 16:30 | disposition home health service (06) | DRG 291 ==
LOC: ER 12:50 → ERHOLD 21:36 → 2ND 21:48 → OBSVTOIN 05-04 15:32
PROVIDERS: ADMIT Family Medicine; ATTEND Family Medicine
DX: I13.0 Hypertensive heart and chronic kidney disease with heart failure and stage 1 through stage 4 chronic kidney disease, or unspecified chronic kidney disease (principal); I50.23 Acute on chronic systolic (congestive) heart failure; N17.9 Acute kidney failure, unspecified; Z68.41 Body mass index [BMI] 40.0-44.9, adult; N18.3 Chronic kidney disease, stage 3 (moderate); E11.22 Type 2 diabetes mellitus with diabetic chronic kidney disease; E78.2 Mixed hyperlipidemia; F41.8 Other specified anxiety disorders; I48.91 Unspecified atrial fibrillation; I27.20 Pulmonary hypertension, unspecified; I35.0 Nonrheumatic aortic (valve) stenosis; E66.01 Morbid (severe) obesity due to excess calories; Z86.718 Personal history of other venous thrombosis and embolism; Z95.0 Presence of cardiac pacemaker; Z85.118 Personal history of other malignant neoplasm of bronchus and lung; Z79.01 Long term (current) use of anticoagulants
CPT/HCPCS: 36415; 51702; 71045; 80048; 80053; 80076; 81003; 82550; 82553; 82962; 83605; 83735; 83880; 84145; 84484; 85025; 85610; 85730; 87040; 93005; 93306; 94760; 96365; 96375; 99285; G0378; J0696; J1940; J7030; P9047

== ENCOUNTER 2018-05-19 12:12 | Inpatient (IN) | payer OTHER ==
--- OUTSIDE RECORDS SUMMARY | 2018-05-19 12:13 | XMS REPORT | Clinical Summary ---
:1935 Author Organization [facility] Address [address] [place] [address] Care Team Providers Name Role Phone Jace [...] total) by mouth daily for 30 days. aspirin 81 mg chewable Chew 1 tablet [...] 06/03/2017 Telephone Orthopedic Surgery Josias Woods MD after 05/18/2017 Social History Tobacco Use Types Packs/Day Years [...] INFLUENZA VACCINE 03/22/2018 Implants Implanted Type Area Batch Mixer Operator Device Expiration Model / Identifier Date Serial / Lot T2 F/T Locking Screw 5mmx32.5mm - [id number] IMPLANT Left: ANGEL 189 [id number] / Implanted: 04/19/2017 (Quantity not on file) DEVICES [employer] / Nail Im Trchntrc W/ Set Scr Ti 130deg [id number] Strl - [id number] Orthopedic Left: ANGEL 09/21/2021 [id number] / Implanted: 04/19/2017 (Quantity not on file) Trauma [employer] / Implants [id number] Shaft Trnkl Modlr 448mm Strl - [id number] Orthopedic N/A: N/A ANGEL 0227 [id number] / Implanted: Qty: 1 on 04/19/2017 by Josias Woods MD [employer] / Implants [id number] Screw Bone Lag Ti [id number] - [id number] Orthopedic Left: ANGEL 3060 [id number] / Implanted: 04/19/2017 (Quantity not on file) [employer] / Implants Results Not on fileafter 05/18/2017 Insurance Payer Benefit Plan / Group Subscriber ID Type Phone Address MEDICARE MEDICARE PART A AND B xxxxxxxxxx Medicare [place], [place] AETNA AETNA HMO,POS,EPO, MC/EC xxxxxx HMO [phone] [place] [id number]
--- OUTSIDE RECORDS SUMMARY | 2018-05-19 12:14 | XMS REPORT | Continuity of Care Document ---
:1935 Author Organization Interface Problems Problem Status Onset Classification Date Comments Source Date Reported Discharge 05/12/2017 [facility] Diagnosis: 7 Complication of Salcedo catheter CATHETER PAIN Active [facility] 7 Jose Medications Medication Details Route Status Patient Ordering Order Source Instructions Provider Date Acetaminophen 1 tab, Inactive MH 300 MG / Codeine Route: PO, 017 [place] Phosphate 30 MG Drug Form: Oral Tablet TAB, [Tylenol with Dosing Codeine #3] Weight 81.818, kg, ONCE, STAT, Start date: 05/09/17 21:22:00 CDT, Stop date: 05/09/17 21:22:00 CDTNotes: Do not exceed 4gm/day of acetaminop hen. (Same as: Tylenol with Codeine # 3) Allergies, Adverse Reactions, Alerts Substance Category Reaction Severity Reaction Status Date Comments Source type Reported Rythmol Assertion Drug Active allergy [place] Immunizations Immunization Date Given Site Status Last Updated Comments Source Results Order Results Value Reference Date Interpretation Comments Source Name Range Vital Signs Vital Sign Value Date Comments Source Heart Rate 61 05/10/2017 [facility] Respitory Rate 18 05/10/2017 [facility] Temperature Oral (F) 98.2 F 05/10/2017 [facility] Systolic (mm Hg) 132 05/10/2017 [facility] Diastolic (mm Hg) 76 05/10/2017 [facility] Systolic (mm Hg) 142 05/09/2017 [facility] Diastolic (mm Hg) 72 05/09/2017 [facility] Respitory Rate 18 05/09/2017 [facility] Heart Rate 64 05/09/2017 [facility] Temperature Oral (F) 98.2 F 05/09/2017 [facility] Heart Rate 62 05/09/2017 [facility] Systolic (mm Hg) 152 05/09/2017 [facility] Diastolic (mm Hg) 68 05/09/2017 [facility] Respitory Rate 18 05/09/2017 [facility] BMI Calculated 29.11 05/09/2017 [facility] Height 167.64 cm 05/09/2017 [facility] Weight 81.818 05/09/2017 [facility] Temperature Oral (F) 98.0 F 05/09/2017 [facility] Encounters Location Location Encounter Encounter Reason Attending ADM DC Status Source Details Type Number For Provider Date Date [facility] [id number] Sergey 05/09 05/10 KERWIN Hinson /2016 [facility] Procedures Procedure Code Date Perfomer Comments Source Hip arthroplasty [id number] [facility]
[2018-05-19 12:58] LABS: Absolute Lymphocytes (CBC) 0.8 K/uL (0.7-4.9); Absolute Monocytes 0.6 K/uL (0.1-1.3); Absolute Neutrophil 2.6 K/uL (1.8-8.0); Basophils % 1.1 % (0-1.3); Eosinophils % 1.6 % (0-4.4); Hematocrit 35.8 % (36.0-45.0); Lymphocytes % 18.4 % (15.3-44.8); MCH 25.8 pg (27.0-35.0); MCV 82.2 fL (80-100); MPV 8.6 fL (7.6-11.3); Monocytes % 14.3 % (3.3-12.3); RBC Red Blood Cell Count 4.35 M/uL (3.86-4.86)
[2018-05-19 13:18] LABS: Bilirubin Direct 0.3 mg/dL (0-0.2); Bilirubin Total 0.6 mg/dL (0.2-1.0); Potassium 5.1 mmol/L (3.5-5.1)
--- NOTE | 2018-05-19 13:28 | RAD REPORT ---
EXAM DESCRIPTION: RAD - Chest Single View - 05/19/2018 1:22 pm CLINICAL HISTORY: ABDOMINAL DISTENTION Chest pain. COMPARISON: Chest Single View dated 05/04/2018; Chest Single View dated 05/02/2018; Chest Pa And Lat ( 2 Views) dated 01/10/2018; Chest Single View dated 04/15/2017 FINDINGS: Portable technique limits examination quality. Chronic triangular opacity is again noted in the right lung, unchanged. The lungs demonstrate mild in terstitial pulmonary edema. The heart is significantly prominent size with dual lead pacer device. Ch ondroid lesion in the proximal left humerus is unchanged. IMPRESSION: Stable chest since 05/04/2018 study.
--- NOTE | 2018-05-19 13:29 | RAD REPORT ---
EXAM DESCRIPTION: RAD - Abdomen 1 View (KUB) - 05/19/2018 1:22 pm CLINICAL HISTORY: Abd pain;Abdominal distention Pain COMPARISON: No comparisons FINDINGS: The bowel gas pattern is non-obstructive. No evidence of free air or pneumatosis. No suspi cious calcifications. Hardware is present in the proximal left humerus. Contrast is present in the stomach. IMPRESSION: Negative examination.
--- NOTE | 2018-05-19 14:35 | RAD REPORT ---
EXAM DESCRIPTION: CT - Abdomen Pelvis Wo Contrast - 05/19/2018 2:19 pm CLINICAL HISTORY: Abdominal pain. Abd pain;Abdominal distention COMPARISON: Abdomen Pelvis W Contrast dated 06/01/2017 TECHNIQUE: CT imaging of the abdomen and pelvis was performed without contrast. Solid organ, bowel a nd vascular assessment is limited due to lack of IV and oral contrast. All CT scans are performed using dose optimization technique as appropriate and may include automated exposure control or mA/KV adjustment according to patient size. FINDINGS: Small pleural effusions are present.Cardiomegaly is noted with pacer wires in place. Mild free fluid is seen in the abdomen. Mild splenomegaly is seen. Heavy atherosclerosis. No liver le matias or biliary dilatation. Pancreatic atrophy is identified. 3 cm fat containing left adrenal mass i s unchanged. Right adrenal gland is unremarkable. Mild atrophy of both kidneys is seen. Prominent 3 c m cyst projects off the inferior left kidney. Mild pelvic free fluid. Heavy atherosclerosis. No fracture present. IMPRESSION: Mild ascites and small pleural effusions. Heavy atherosclerosis. A limited non-contrast examination was performed as detailed.
--- NOTE | 2018-05-19 15:02 | EDPHYS ---
Physician Documentation [facility] Name: Juvenal Engle Age: 83 yrs Sex: Female : 1935 Arrival Date: 05/19/2018 Time: 12:13 Bed 18 Private MD: ED Physician Thang Johnston HPI: 05/19 13:52 This 83 yrs old Female presents to ER via EMS with complaints of Abdominal rn Swelling. 13:52 The patient presents with abdominal distention. Onset: The symptoms/episode rn began/occurred 1 week(s) ago. The symptoms do not radiate. Associated signs and symptoms: Pertinent positives: shortness of breath, Pertinent negatives: anorexia, blood in stools, chest pain, constipation, diarrhea, dysuria, fever. Modifying factors: The symptoms are alleviated by nothing, the symptoms are aggravated by nothing. Severity of pain: At its worst the pain was mild in the emergency department the pain is unchanged. The patient has not experienced similar symptoms in the past. Reports admitted last week for CHF, feels better now, but since discharge has been having abd swelling, is having normal bowel movements, reports decreased urinary output, no vomiting/fever. . Historical: - Allergies: 12:22 Amitriptyline; aj 12:22 Januvia; aj 12:22 propafenone HCl; aj 12:22 rosiglitazone maleate; aj 12:22 Rythmol; aj 12:22 sitagliptin phosphate; aj 12:22 Tape; aj - Home Meds: 12:22 alprazolam 0.5 mg Oral tab as needed [Active]; lansoprazole 30 mg Oral cpDR 1 cap once aj daily [Active]; metolazone 5 mg oral tab 1 tab 3 times per week [Active]; gabapentin 100 mg Oral cap [Active]; docusate sodium 100 mg Oral cap 1 cap 2 times per day [Active]; Lasix 40 mg Oral tab 1 tab once daily [Active]; atorvastatin 40 mg Oral tab 1 tab once daily [Active]; carvedilol 6.25 mg Oral tab 1 tab 2 times per day [Active]; sertraline 50 mg oral tab 1 tab once daily [Active]; - PMHx: 12:22 Anxiety; Anemia; Cancer, Lung; Diabetes - IDDM; GERD; hital hernia; Hypertension; aj - Immunization history:: Adult Immunizations up to date. - Social history:: Smoking status: Patient/guardian denies using tobacco. - Ebola Screening: : Patient negative for fever greater than or equal to 101.5 degrees Fahrenheit, and additional compatible Ebola Virus Disease symptoms Patient denies exposure to infectious person Patient denies travel to an Ebola-affected area in the 21 days before illness onset No symptoms or risks identified at this time. - Family history:: not pertinent. ROS: 13:52 Constitutional: Negative for fever, chills, and weight loss, Eyes: Negative for injury, rn pain, redness, and discharge, Cardiovascular: Negative for chest pain, palpitations, and edema, Respiratory: mild sob Abdomen/GI: + abd distension and pain MS/Extremity: Negative for injury and deformity, Skin: Negative for injury, rash, and discoloration, Neuro: Negative for headache, weakness, numbness, tingling, and seizure. Exam: 13:52 Constitutional: This is a well developed, well nourished patient who is awake, alert, rn and in no acute distress. Head/Face: Normocephalic, atraumatic. Eyes: Pupils equal round and reactive to light, extra-ocular motions intact. Lids and lashes normal. Conjunctiva and sclera are non-icteric and not injected. Cornea within normal limits. Periorbital areas with no swelling, redness, or edema. Neck: Trachea midline, no thyromegaly or masses palpated, and no cervical lymphadenopathy. Supple, full range of motion without nuchal rigidity, or vertebral point tenderness. No Meningismus. Cardiovascular: Regular rate and rhythm with a normal S1 and S2. No gallops, murmurs, or rubs. Normal PMI, no JVD. No pulse deficits. Respiratory: mild tachypnea with diminished breath sounds at bases Abdomen/GI: soft, + abd distension, mild mid abd tenderness, no rebound/masses MS/ Extremity: Pulses equal, no cyanosis. Neurovascular intact. Full, normal range of motion. Equal circumference. Neuro: Awake and alert, GCS 15, oriented to person, place, time, and situation. Cranial nerves II-XII grossly intact. Motor strength 5/5 in all extremities. Sensory grossly intact. Vital Signs: 12:22 BP 149 / 91; Pulse 70; Resp 21; Temp 97.9; Pulse Ox 96% on R/A; Weight 105.69 kg; aj Height 5 ft. 0 in. (152.40 cm); 13:58 BP 153 / 92; Pulse 70; Resp 15; Pulse Ox 97% on R/A; aj 17:06 BP 139 / 80; Pulse 70; Resp 19; Pulse Ox 98% on R/A; aj 12:22 Body Mass Index 45.50 (105.69 kg, 152.40 cm) MDM: 12:22 Patient medically screened. rn 14:54 Differential diagnosis: non-specific abd pain, Peritonitis, ascites, volume overload, rn CHF. Data reviewed: vital signs, nurses notes, lab test result(s), radiologic studies, CT scan, plain films, and as a result, I will admit patient. Counseling: I had a detailed discussion with the patient and/or guardian regarding: the historical points, exam findings, and any diagnostic results supporting the discharge/admit diagnosis, lab results, radiology results, the need for further work-up and treatment in the hospital. Response to treatment: the patient's symptoms have mildly improved after treatment, and as a result, I will admit patient. Admission orders: after a detailed discussion of the patient's condition and case, the admit orders are written by me. ED course: Pt with mild ascites, likely transudative from volume overload, BNP 40580 and bilateral pleural effusions, will admit to Dr. Fernandez. . 05/19 12:30 Order name: Basic Metabolic Panel; Complete Time: 13:05/19 12:30 Order name: CBC with Diff; Complete Time: 13:05/19 12:30 Order name: Hepatic Function; Complete Time: :05/19 12:30 Order name: Lipase; Complete Time: :05/19 12:30 Order name: XRAY Chest (1 view); Complete Time: 13:05/19 12:30 Order name: N-Terminal Pro-brain Natriuretic Peptide; Complete Time: 13:05/19 12:30 Order name: IV Saline Lock; Complete Time: 12:05/19 12:30 Order name: Labs collected and sent; Complete Time: 12:05/19 12:30 Order name: XRAY KUB; Complete Time: 13:05/19 13:56 Order name: Abdomen ; Complete Time: 14:39 EDMS Administered Medications: 15:35 Drug: Lasix 40 mg Route: IVP; Site: right hand; 16:47 Follow up: Response: No adverse reaction Disposition: 05/19/18 15:01 Hospitalization ordered by Kaity Fernandez for Inpatient Admission. Preliminary diagnosis are Ascites, Pleural effusion, not elsewhere classified, Volume overload. - Bed requested for Telemetry/MedSurg (Inpatient). - Status is Inpatient Admission. aj - Condition is Stable. - Problem is an ongoing problem. - Symptoms have improved. UTI on Admission? No Signatures: Dispatcher [employer] EDNY Venessa Martinez RN RN aj Nieto, Roman, MD MD rn Smirch, Shelby, RN RN ss Corrections: (The following items were deleted from the chart) 13:56 12:31 Abdomen Pelvis W Con+CT.RAD.BRZ ordered. [facility] EDNY 16:09 15:01 Hospitalization Ordered by Kaity Fernandez MD for Inpatient Admission. Preliminary ss diagnosis is Ascites; Pleural effusion, not elsewhere classified; Volume overload. Bed requested for Telemetry/MedSurg (Inpatient). Status is Inpatient Admission. Condition is Stable. Problem is an ongoing problem. Symptoms have improved. UTI on Admission? No. rn 17:35 16:09 05/19/2018 15:01 Hospitalization Ordered by Kaity Fernandez MD for Inpatient Admission. Preliminary diagnosis is Ascites; Pleural effusion, not elsewhere classified; Volume overload. Bed requested for Telemetry/MedSurg (Inpatient). Status is Inpatient Admission. Condition is Stable. Problem is an ongoing problem. Symptoms have improved. UTI on Admission? No. ss
--- NOTE | 2018-05-19 15:02 | ER ---
Nurse's Notes [facility] Name: Juvenal Engle Age: 83 yrs Sex: Female : 1935 Arrival Date: 05/19/2018 Time: 12:13 Bed 18 Private MD: Diagnosis: Ascites;Pleural effusion, not elsewhere classified;Volume overload Presentation: 05/19 12:14 Presenting complaint: EMS states: Abdominal pain and distention for 4 days. Patient aj reports 20 lb weight gain in 1 week. Reports SOB with deep respiration. Transition of care: patient was not received from another setting of care. Onset of symptoms was May 15, 2018. Risk Assessment: Do you want to hurt yourself or someone else? Patient reports no desire to harm self or others. Initial Sepsis Screen: Does the patient meet any 2 criteria? No. Patient's initial sepsis screen is negative. Does the patient have a suspected source of infection? No. Patient's initial sepsis screen is negative. Care prior to arrival: IV initiated. 22 GA, in the right hand. 12:14 Method Of Arrival: EMS: [facility] 12:14 Acuity: KENDALL 3 aj Triage Assessment: 12:22 General: Appears in no apparent distress. comfortable, Behavior is calm, cooperative, aj appropriate for age. Pain: Complains of pain in abdomen. Neuro: Level of Consciousness is awake, alert, obeys commands, Oriented to person, place, time, situation, Appropriate for age. Respiratory: Airway is patent Respiratory effort is even, unlabored, Respiratory pattern is regular, symmetrical. Respiratory: Reports shortness of breath. GI: Abdomen is round distended, obese, Abdomen is tender to palpation X 4 quads. Derm: Skin is intact, is healthy with good turgor, Skin is pink, warm \T\ dry. normal. Historical: - Allergies: 12:22 Amitriptyline; aj 12:22 Januvia; aj 12:22 propafenone HCl; aj 12:22 rosiglitazone maleate; aj 12:22 Rythmol; aj 12:22 sitagliptin phosphate; aj 12:22 Tape; aj - Home Meds: 12:22 alprazolam 0.5 mg Oral tab as needed [Active]; lansoprazole 30 mg Oral cpDR 1 cap once aj daily [Active]; metolazone 5 mg oral tab 1 tab 3 times per week [Active]; gabapentin 100 mg Oral cap [Active]; docusate sodium 100 mg Oral cap 1 cap 2 times per day [Active]; Lasix 40 mg Oral tab 1 tab once daily [Active]; atorvastatin 40 mg Oral tab 1 tab once daily [Active]; carvedilol 6.25 mg Oral tab 1 tab 2 times per day [Active]; sertraline 50 mg oral tab 1 tab once daily [Active]; - PMHx: 12:22 Anxiety; Anemia; Cancer, Lung; Diabetes - IDDM; GERD; hital hernia; Hypertension; aj - Immunization history:: Adult Immunizations up to date. - Social history:: Smoking status: Patient/guardian denies using tobacco. - Ebola Screening: : Patient negative for fever greater than or equal to 101.5 degrees Fahrenheit, and additional compatible Ebola Virus Disease symptoms Patient denies exposure to infectious person Patient denies travel to an Ebola-affected area in the 21 days before illness onset No symptoms or risks identified at this time. - Family history:: not pertinent. Screenin:51 Abuse screen: Denies threats or abuse. Denies injuries from another. Nutritional aj screening: No deficits noted. Tuberculosis screening: No symptoms or risk factors identified. Fall Risk None identified. Assessment: 12:49 Reassessment: notified C pt finished drinking PO contrast, tolerated well. em 13:57 Reassessment: Patient appears in no apparent distress at this time. No changes from aj previously documented assessment. Patient and/or family updated on plan of care and expected duration. Pain level reassessed. Patient is alert, oriented x 3, equal unlabored respirations, skin warm/dry/pink. Family is at bedside. General: Appears in no apparent distress. comfortable, Behavior is calm, cooperative, appropriate for age. 17:06 Reassessment: Patient appears in no apparent distress at this time. No changes from aj previously documented assessment. Patient and/or family updated on plan of care and expected duration. Pain level reassessed. Patient is alert, oriented x 3, equal unlabored respirations, skin warm/dry/pink. Patient states feeling better. Vital Signs: 12:22 BP 149 / 91; Pulse 70; Resp 21; Temp 97.9; Pulse Ox 96% on R/A; Weight 105.69 kg; aj Height 5 ft. 0 in. (152.40 cm); 13:58 BP 153 / 92; Pulse 70; Resp 15; Pulse Ox 97% on R/A; aj 17:06 BP 139 / 80; Pulse 70; Resp 19; Pulse Ox 98% on R/A; aj 12:22 Body Mass Index 45.50 (105.69 kg, 152.40 cm) aj ED Course: 12:13 Patient arrived in ED. aj 12:16 Triage completed. aj 12:22 Thang Johnston MD is Attending Physician. rn 12:22 Arm band placed on left wrist. Patient placed in an exam room, on a stretcher, on aj quality assurance monitor, on pulse oximetry. 12:44 Venessa Martinez, RN is Primary Nurse. aj 12:51 Patient has correct armband on for positive identification. aj 12:51 patient monitor on. Pulse ox on. NIBP on. aj 12:51 Inserted saline lock: 20 gauge in right forearm, using aseptic technique. Maintain EMS aj IV. Gauge \T\ site: 22 right hand. 13:22 X-ray completed. Patient tolerated procedure well. [facility] 13:22 XRAY Chest (1 view) In Process Unspecified. EDMS 13:22 XRAY KUB In Process Unspecified. EDMS 14:[address] via stretcher. sw 14:19 Abdomen In Process Unspecified. EDDE 15:01 Kaity Fernandez MD is Hospitalizing Provider. rn 17:06 No provider procedures requiring assistance completed. Patient admitted, IV remains in aj place. intact. Administered Medications: 15:35 Drug: Lasix 40 mg Route: IVP; Site: right hand; aj 16:47 Follow up: Response: No adverse reaction Outcome: 15:01 Decision to Hospitalize by Provider. rn 17:06 Admitted to Med/surg accompanied by tech, room 413, Report called to Shilpa aj 17:34 Condition: good aj 17:35 Patient left the ED. aj Signatures: Dispatcher [employer] EDMS Venessa Martinez, RN RN Daljit Figueroa, EXPEDITER EXPEDITER em Thang Johnston MD MD rn Gallaway, Ashley ag1 Ruchi Jenkins
[2018-05-19] MEDS ORDERED: ACETAMINOPHEN 500 MG TAB PO PRN (15:36)
[2018-05-19] MEDS ORDERED: FUROSEMIDE 40 MG/4 ML VIAL ONE (15:36)
[2018-05-19] MEDS ORDERED: ONDANSETRON 4 MG/2 ML VIAL IV PRN (15:36)
[2018-05-19] MEDS ORDERED: FUROSEMIDE 40 MG/4 ML VIAL IV SCH (17:00)
[2018-05-19] MEDS ORDERED: D50W 25 GM/50 ML SYRINGE IV PRN (17:45)
[2018-05-19] MEDS ORDERED: GLUCAGON 1 MG/VIAL IM PRN (17:45)
[2018-05-19] MEDS: INSULIN -REGULAR HUMAN 50 UNIT/0.5 ML ML SQ SCH ×2 (18:15→21:17)
[2018-05-19 18:27] VITALS: BMI 46.7
[2018-05-19] MEDS: APIXABAN 2.5 MG TABLET PO SCH (21:00)
[2018-05-19] MEDS: DOCUSATE NA 100 MG CAP PO SCH ×2 (21:00→21:21)
[2018-05-19] MEDS: INSULIN GLARGINE 100 UNITS/ML SQ SCH (21:19)
[2018-05-19] MEDS: GABAPENTIN 100 MG CAP PO SCH (21:20)
[2018-05-19] MEDS: ALPRAZOLAM 0.5 MG TABLET PO SCH (21:20)
[2018-05-19] MEDS: CARVEDILOL 6.25 MG TAB PO SCH (21:20)
[2018-05-19] MEDS: FUROSEMIDE 40 MG/4 ML VIAL IV SCH (22:34)
--- NOTE | 2018-05-20 04:52 | HP ---
Date of Admission: 05/19/2018 Primary Care Physician: Dr. Persaud. Chief Complaint: Shortness of breath, abdominal distention. Code Status: Full. Daughter is decision-maker and the patient does have a living will. History Of Present Illness: The patient is an 83-year-old female with past medical history of atrial fibrillation, on Eliquis; history of lung cancer on the right side; congestive heart failure; obesit y; diabetes; history of DVT; hyperlipidemia; kidney disease. The patient was recently discharged fro the hospital on 05/05/2018 with issues of shortness of breath. The patient was doing well after go ing home, however, had been gained approximately 20 pounds and was started on metolazone by her PCP, however, was only able to take a couple of doses. The patient today had worsening symptoms of shortn ess of breath, abdominal distention and therefore, was sent in to the ER by her home health nurse for further evaluation. The patient came into the ER, vital signs showed some mild tachypnea, she was s aturating 96% on room air. The patient does use oxygen at home. The patient was given Lasix. Her w orkup revealed a BNP of 24,000, creatinine was 1.9. Glucose is elevated at 396. CT scan of the abdo men and pelvis showed some mild ascites and small pleural effusions, heavy atherosclerosis and chest x-ray was showing a triangular opacity noted in the right lung, which did not change from previous. Did show some mild pulmonary edema. Pacer device in place. The patient was then referred for admiss ion for acute congestive heart failure. When seen in the ER, she was awake, alert, oriented x3, in s ome mild distress. Elderly female who is somewhat ill-appearing. Past Medical History: Congestive heart failure; atrial fibrillation, anticoagulation with Eliquis; o besity; diabetes mellitus type 2, non-insulin requiring; history DVT; hyperlipidemia; chronic kidney disease; depression; anxiety; hypertension. Surgical History: Pacemaker, cataract surgery, right leg fracture and repair. Family History: Father had heart disease and diabetes. Social History: The patient denies alcohol use, tobacco use, or illicit drug use. Good social suppo rt. Allergies: TO AMITRIPTYLINE, ROSIGLITAZONE, SITAGLIPTIN, PROPAFENONE, AND TAPE. Medications: List reviewed. Physical Examination: Vital Signs: Blood pressure 149/91, pulse 70, respirations 21, temperature 97.9, O2 96% on room air. General: Awake, alert, oriented x3. Elderly female with mild respiratory distress. HEENT: Normocephalic, atraumatic. PERRLA, EOMI. Dry mucous membranes. Oropharynx is clear. Poor dentition. Conjunctivae anicteric. Neck: Supple. Trachea midline. Distended JVD. CV: S1, S2. No murmurs. Peripheral pulses present, but weak. Respiratory: Diminished breath sounds bilaterally. Some rhonchi and crackles heard. No wheezing. The patient is slightly tachypneic. No use of accessory muscles. Gastrointestinal: Abdomen is mildly distended, nontender. Mild ascites. Bowel sounds positive. Extremities: No clubbing, cyanosis. The patient has 2+ peripheral edema bilaterally. Neuro: Cranial nerves 2 through 12 intact grossly. No focal neurological deficit. Skin: No rashes. Normal skin turgor. The patient has chronic venous stasis changes. Psych: Mood is okay. Affect is full. Insight and judgment are good. Laboratory Data: Sodium 136, potassium 5.1, chloride 103, CO2 29, BUN 49, creatinine 1.9, glucose 39 6, calcium 8.3, BNP 24,962. WBC 4.1, H and H 11.2 and 35.8, platelets 189, neutrophils 64%. Chest x -ray shows chronic triangular opacity noted in the right lung, unchanged. Does demonstrate mild inte rstitial primary edema. Heart significantly prominent in size with dual lead pacemaker device. Dat droid lesion in the proximal left humerus is unchanged. CT scan abdomen and pelvis without contrast shows mild ascites and small pleural effusions, heavy atherosclerosis, 3 cm fat containing left adren al mass unchanged, 3 cm cyst projects off the inferior left kidney. Assessment And Plan: An 83-year-old female with: 1.Shortness of breath. 2.Mild ascites. 3.Acute on chronic congestive heart failure with acute exacerbation, systolic dysfunction, EF was 44 %. 4.Echocardiogram done recently on 05/03/2018, shows EF of 29%. 5.Moderate pulmonary hypertension. 6.Atrial fibrillation, controlled ventricular rate. We will continue Eliquis. 7.History of deep venous thrombosis, on Eliquis. 8.Diabetes mellitus type 2, non-insulin requiring with hyperglycemia, uncontrolled. We will place o n sliding scale insulin. 9.Essential hypertension, stable. We will resume home medications as appropriate. 10.Hyperlipidemia. Continue statin. 11.Chronic kidney disease stage 3. We will continue to monitor creatinine. 12.Depression and anxiety. 13.Status post pacemaker. Plan: We will admit patient to Med-Surg, place as inpatient. Continue supplemental oxygen. We will continue with diuresis with Lasix. Monitor creatinine. Lasix dose may need to be decreased. We wi ll monitor I's and O's. Fluid restriction. Daily weight. Abdominal ultrasound in a.m. to rule out other pathology. Cardiology has been consulted. We will hold off on echocardiogram most recent one on 05/03/2018 shows low EF of 29%. The patient unfortunately may not be a candidate for Entresto giv en her kidney function. We will discuss with Cardiology. May benefit from Aldactone. /MODL Voice ID: [id number]
[2018-05-20 06:38] LABS: Absolute Lymphocytes (CBC) 1.2 K/uL (0.7-4.9); Absolute Monocytes 0.7 K/uL (0.1-1.3); Absolute Neutrophil 2.7 K/uL (1.8-8.0); Basophils % 1.2 % (0-1.3); Eosinophils % 2.2 % (0-4.4); Hematocrit 33.1 % (36.0-45.0); Lymphocytes % 24.7 % (15.3-44.8); MCH 26.2 pg (27.0-35.0); MCV 80.1 fL (80-100); Monocytes % 15.3 % (3.3-12.3); RBC Red Blood Cell Count 4.14 M/uL (3.86-4.86)
[2018-05-20 07:00] LABS: Albumin 2.7 g/dL (3.4-5.0); Bilirubin Total 0.7 mg/dL (0.2-1.0); Potassium 4.5 mmol/L (3.5-5.1); Protein, Total 6.5 g/dL (6.4-8.2)
[2018-05-20] MEDS: INSULIN -REGULAR HUMAN 50 UNIT/0.5 ML ML SQ SCH ×4 (07:30→22:45)
[2018-05-20] MEDS ORDERED: INFLUENZA VACCINE (for 3y+) 0.5 ML DOSE IMVAC ONE (08:00)
[2018-05-20] MEDS: APIXABAN 2.5 MG TABLET PO SCH ×3 (09:00→22:42)
[2018-05-20 09:28] LABS: Anisocytosis 1+; Blood Morphology Comment NOTED (NOT SEEN); Platelet Estimate ADEQ; Urine White Blood Cell Casts DIFF
[2018-05-20 09:29] LABS: Ovalocytes 1+
[2018-05-20] MEDS: FUROSEMIDE 40 MG/4 ML VIAL IV SCH ×2 (11:14→17:51)
[2018-05-20] MEDS: PANTOPRAZOLE 40MG TABLET PO SCH (11:14)
[2018-05-20] MEDS: ATORVASTATIN 40 MG TAB PO SCH (11:14)
[2018-05-20] MEDS: GABAPENTIN 100 MG CAP PO SCH ×2 (11:15→22:42)
[2018-05-20] MEDS: CARVEDILOL 6.25 MG TAB PO SCH ×2 (11:15→22:43)
[2018-05-20] MEDS: SERTRALINE HCL 50 MG TAB PO SCH (11:15)
[2018-05-20] MEDS: DOCUSATE NA 100 MG CAP PO SCH ×2 (11:15→21:00)
[2018-05-20] MEDS: AMIODARONE HCL 200 MG TAB PO SCH (11:15)
--- NOTE | 2018-05-20 13:37 | CON ---
Additional Attending Physician: Dr. Fernandez. Chief Complaint: Swelling of the abdomen, weight gain, and shortness of breath. History Of Present Illness: Ms. Engle is known to have a normal ejection fraction, but she was in [facility] AFib and has a pacemaker. She had been in chronic atrial fibrillation, underwent an ablation, and now manages to be in sinus rhythm much of the time. Her pacemaker has been checked recently. It does not seem to be an issue. She has had normal ejection fraction recently. She had lung cancer, had the spot resected. It was considered to be a complete cure. One of the findings since being her e is that although her chest x-ray does not show pulmonary edema, it does show a little triangular-sh aped mass or probably scar from surgery. In her CT of the abdomen and pelvis, there is ascites. The re was no contrast given, so that it would be less likely to detect masses, but there is a small amou nt of ascites, pancreatic atrophy, not a mass. No liver masses are noted, although it could be a les s sensitive test without the use of contrast. The patient feels much better since she has had diures is and presently she is getting amiodarone, apixaban 2.5 b.i.d., atorvastatin, carvedilol, Lasix 40 b .i.d. IV, gabapentin, insulin, Zofran, and sertraline. Impression: The patient's diuresis is going well. We can look at her heart again, see if the heart is the main issue. It could be that the heart is causing hepatic congestion and ascites, but I would be concerned that a GI doctor might be involved to see if they think we should try to sample some of the fluid, so it would be complete feasible. I would be worried about malignancy in the abdomen causing that fluid collection. YVONNE/JOHNNY Voice ID: [id number] Report ID: [id number]
--- NOTE | 2018-05-20 16:28 | P.PN ---
Subjective Date of Service: 05/20/18 doing better less edema Physical Examination - Vital Signs Temperature: 97.4 F Blood Pressure: 136/73 Pulse: 70 Respirations: 20 Pulse Ox (%): 98 - Physical Exam General: Alert, In no apparent distress HEENT: Atraumatic, PERRLA, EOMI Neck: Supple, JVD not distended Respiratory: Clear to auscultation bilaterally, Normal air movement Cardiovascular: Regular rate/rhythm, Normal S1 S2 Gastrointestinal: Normal bowel sounds, No tenderness Musculoskeletal: No tenderness Integumentary: No rashes Neurological: Normal speech, Normal tone, Normal affect Lymphatics: No axilla or inguinal lymphadenopathy - Studies Medications List Reviewed: Yes Assessment And Plan - Current Problems (Diagnosis) (1) CHF (congestive heart failure) Onset Date: 01/03/15 Current Visit: Yes Status: Chronic Qualifiers: Heart failure type: systolic Heart failure chronicity: acute on chronic Qualified Code(s): I50.23 - Acute on chronic systolic (congestive) heart failure (2) Atrial fibrillation with controlled ventricular response Onset Date: 05/08/18 Current Visit: Yes Status: Chronic (3) Depression with anxiety Onset Date: 05/08/18 Current Visit: Yes Status: Chronic (4) CKD (chronic kidney disease) Onset Date: 04/29/15 Current Visit: No Status: Chronic Qualifiers: Chronic kidney disease stage: stage 3 (moderate) Qualified Code(s): N18.3 - Chronic kidney disease, stage 3 (moderate) (5) Hypertension Onset Date: 06/02/17 Current Visit: Yes Status: Chronic Qualifiers: Hypertension type: essential hypertension (6) Type 2 diabetes mellitus Onset Date: 06/02/17 Current Visit: No Status: Chronic Qualifiers: Diabetes mellitus fdc insulin use: with intermodal dispatcher use Diabetes mellitus complication status: without complication Qualified Code(s): E11.9 - Type 2 diabetes mellitus without complications; Z79.4 - prison (current) use of insulin - Plan cont diuresis will do CT abd with IV contrast if renal function is better tommorrow
[2018-05-20] MEDS: ALPRAZOLAM 0.5 MG TABLET PO SCH (22:43)
[2018-05-20] MEDS: INSULIN GLARGINE 100 UNITS/ML SQ SCH (22:44)
[2018-05-21 06:00] LABS: Hematocrit 31.3 % (36.0-45.0); MCH 25.9 pg (27.0-35.0); MCV 81.4 fL (80-100); MPV 8.4 fL (7.6-11.3); RBC Red Blood Cell Count 3.84 M/uL (3.86-4.86)
[2018-05-21 06:15] LABS: Albumin 2.5 g/dL (3.4-5.0); Bilirubin Total 0.5 mg/dL (0.2-1.0); Potassium 4.8 mmol/L (3.5-5.1); Protein, Total 5.9 g/dL (6.4-8.2)
[2018-05-21] MEDS: INSULIN -REGULAR HUMAN 50 UNIT/0.5 ML ML SQ SCH ×4 (07:30→20:24)
[2018-05-21] MEDS: GABAPENTIN 100 MG CAP PO SCH ×2 (08:56→20:09)
[2018-05-21] MEDS: APIXABAN 2.5 MG TABLET PO SCH ×2 (08:56→20:09)
[2018-05-21] MEDS: ATORVASTATIN 40 MG TAB PO SCH (08:56)
[2018-05-21] MEDS: CARVEDILOL 6.25 MG TAB PO SCH ×2 (08:57→20:09)
[2018-05-21] MEDS: PANTOPRAZOLE 40MG TABLET PO SCH (08:57)
[2018-05-21] MEDS: SERTRALINE HCL 50 MG TAB PO SCH (08:57)
[2018-05-21] MEDS: FUROSEMIDE 40 MG/4 ML VIAL IV SCH (08:57)
[2018-05-21] MEDS: AMIODARONE HCL 200 MG TAB PO SCH (08:57)
[2018-05-21] MEDS: DOCUSATE NA 100 MG CAP PO SCH ×2 (08:58→20:10)
--- NOTE | 2018-05-21 13:44 | P.PN ---
Subjective Date of Service: 05/21/18 doing much better today, with less edema Physical Examination - Vital Signs Temperature: 97.3 F Blood Pressure: 115/58 Pulse: 70 Respirations: 20 Pulse Ox (%): 98 - Physical Exam General: Alert, In no apparent distress HEENT: Atraumatic, PERRLA, EOMI Neck: Supple, JVD not distended Respiratory: Clear to auscultation bilaterally, Normal air movement Cardiovascular: Regular rate/rhythm, Normal S1 S2 Gastrointestinal: Normal bowel sounds, No tenderness Musculoskeletal: No tenderness Integumentary: No rashes Neurological: Normal speech, Normal tone, Normal affect Lymphatics: No axilla or inguinal lymphadenopathy - Studies Medications List Reviewed: Yes Assessment And Plan - Current Problems (Diagnosis) (1) CHF (congestive heart failure) Onset Date: 01/03/15 Current Visit: Yes Status: Chronic Qualifiers: Heart failure type: systolic Heart failure chronicity: acute on chronic Qualified Code(s): I50.23 - Acute on chronic systolic (congestive) heart failure (2) Atrial fibrillation with controlled ventricular response Onset Date: 05/08/18 Current Visit: Yes Status: Chronic (3) Depression with anxiety Onset Date: 05/08/18 Current Visit: Yes Status: Chronic (4) CKD (chronic kidney disease) Onset Date: 04/29/15 Current Visit: No Status: Chronic Qualifiers: Chronic kidney disease stage: stage 3 (moderate) Qualified Code(s): N18.3 - Chronic kidney disease, stage 3 (moderate) (5) Hypertension Onset Date: 06/02/17 Current Visit: Yes Status: Chronic Qualifiers: Hypertension type: essential hypertension (6) Type 2 diabetes mellitus Onset Date: 06/02/17 Current Visit: No Status: Chronic Qualifiers: Diabetes mellitus watermelon inspector insulin use: with watermelon inspector use Diabetes mellitus complication status: without complication Qualified Code(s): E11.9 - Type 2 diabetes mellitus without complications; Z79.4 - oil heaterman (current) use of insulin - Plan --cont diuresis Lasix IV --Consulted Dr Rowley --DC home tomorrow after more diuresis
--- NOTE | 2018-05-21 16:09 | PN ---
Subjective: Ms. Engle seems to have diuresed significantly. I think we could probably cut back on t he amount of diuretic. I think she needs to do an echocardiogram tomorrow and see where we stand. ASMITA Voice ID: [id number] Report ID: [id number]
[2018-05-21] MEDS: ALPRAZOLAM 0.5 MG TABLET PO SCH (20:09)
[2018-05-21] MEDS: INSULIN GLARGINE 100 UNITS/ML SQ SCH (20:24)
[2018-05-22 05:58] LABS: Albumin 2.7 g/dL (3.4-5.0); Bilirubin Total 0.5 mg/dL (0.2-1.0); Potassium 4.7 mmol/L (3.5-5.1); Protein, Total 6.1 g/dL (6.4-8.2)
[2018-05-22] MEDS: INSULIN -REGULAR HUMAN 50 UNIT/0.5 ML ML SQ SCH ×3 (07:30→16:30)
[2018-05-22] MEDS: APIXABAN 2.5 MG TABLET PO SCH (08:12)
[2018-05-22] MEDS: DOCUSATE NA 100 MG CAP PO SCH (08:12)
[2018-05-22] MEDS: SERTRALINE HCL 50 MG TAB PO SCH (08:12)
[2018-05-22] MEDS: CARVEDILOL 6.25 MG TAB PO SCH (08:12)
[2018-05-22] MEDS: GABAPENTIN 100 MG CAP PO SCH (08:12)
[2018-05-22] MEDS: ATORVASTATIN 40 MG TAB PO SCH (08:12)
[2018-05-22] MEDS: AMIODARONE HCL 200 MG TAB PO SCH (08:13)
[2018-05-22] MEDS: PANTOPRAZOLE 40MG TABLET PO SCH (08:13)
[2018-05-22] MEDS ORDERED: FUROSEMIDE 40 MG TABLET PO SCH (09:00)
[2018-05-22 12:19] VITALS: BP 129/70; TEMP 97.7
--- NOTE | 2018-05-22 13:06 | ECHO ---
HEIGHT: 4 ft 11 in WEIGHT: 223 lb 4 oz DATE OF STUDY: 05/22/[address]: Umer Rowley MD 2-DIMENSIONAL: YES M.MODE: YES DOPPLER: YES COLOR FLOW: YES TDS: NO PORTABLE: NO DEFINITY: NO BUBBLE STUDY: NO DIAGNOSIS: CONGESTIVE HEART FAILURE CARDIAC HISTORY: CATHERIZATION: NO SURGERY: NO PROSTHETIC VALVE: NO PACEMAKER: YES MEASUREMENTS (cm) DIASTOLIC (NORMALS) SYSTOLIC (NORMALS) IVSd 1.8 (0.6-1.2) LA Diam 4.0 (1.9-4.0) LVEF 35% LVIDd 4.2 (3.5-5.7) LVIDs 3.5 (2.0-3.5) %FS 16% LVPWd 1.6 (0.6-1.2) Ao Diam 2.9 (2.0-3.7) 2 DIMENSIONAL ASSESSMENT: RIGHT ATRIUM: DILATED LEFT ATRIUM: DILATED RIGHT VENTRICLE: PACEMAKER CATHETER LEFT VENTRICLE: LEFT VENTRICULAR HYPERTROPHY TRICUSPID VALVE: NORMAL MITRAL VALVE: MITRAL ANNULAR CALCIFICATION PULMONIC VALVE: NORMAL AORTIC VALVE: SCLEROSIS PERICARDIAL EFFUSION: NONE AORTIC ROOT: NORMAL LEFT VENTRICULAR WALL MOTION: GLOBAL HYPOKINESIS. DOPPLER/COLOR FLOW: MODERATE TRICUSPID REGURGITATION, ESTIMATED RIGHT VENTRICULAR SYSTOLIC PRESSURE 60-65mmHg (SEVERE PULMONARY HYPERTENSION). MILD AORTIC AND MITRAL REGURGITATION. NO AORTIC STENOSIS. COMMENTS: DEPRESSED LEFT VENTRICULAR EJECTION FRACTION. LEFT VENTRICULAR HYPERTROPHY. DILATED LEFT AND RIGHT ATRIUM. PACEMAKER IN RIGHT VENTRICLE. AORTIC SCLEROSIS WITH NO AORTIC STENOSIS. MILD AORTIC AND MITRAL REGURGITATION. MODERATE TRICUSPID REGURGITATION. SEVERE PULMONARY HYPERTENSION. MITRAL ANNULAR CALCIFICATION. TECHNOLOGIST: TAMMI BARNHART
--- NOTE | 2018-05-22 14:34 | P.DS ---
Admission Date: 05/19/18 Discharge Date: 05/22/18 Primary Care Provider: Dr. Persaud; Cardiology-Dr. Rowley Disposition: DC HOME/HOME HEALTH CARE Discharge Condition: GOOD Reason for Admission: Shortness of breath, edema Consultations: Cardiology-Dr. oRwley Procedures: ECHO: EF-35% LEFT VENTRICULAR WALL MOTION: GLOBAL HYPOKINESIS. DOPPLER/COLOR FLOW: MODERATE TRICUSPID REGURGITATION, ESTIMATED RIGHT VENTRICULAR SYSTOLIC PRESSURE 60-65mmHg (SEVERE PULMONARY HYPERTENSION). MILD AORTIC AND MITRAL REGURGITATION. NO AORTIC STENOSIS. COMMENTS: DEPRESSED LEFT VENTRICULAR EJECTION FRACTION. LEFT VENTRICULAR HYPERTROPHY. DILATED LEFT AND RIGHT ATRIUM. PACEMAKER IN RIGHT VENTRICLE. AORTIC SCLEROSIS WITH NO AORTIC STENOSIS. MILD AORTIC AND MITRAL REGURGITATION. MODERATE TRICUSPID REGURGITATION. SEVERE PULMONARY HYPERTENSION. MITRAL ANNULAR CALCIFICATION. CT Scan: COMPARISON: Abdomen Pelvis W Contrast dated 06/01/2017 TECHNIQUE: CT imaging of the abdomen and pelvis was performed without contrast. Solid organ, bowel and vascular assessment is limited due to lack of IV and oral contrast. All CT scans are performed using dose optimization technique as appropriate and may include automated exposure control or mA/KV adjustment according to patient size. FINDINGS: Small pleural effusions are present.Cardiomegaly is noted with pacer wires in place. Mild free fluid is seen in the abdomen. Mild splenomegaly is seen. Heavy atherosclerosis. No liver lesion or biliary dilatation. Pancreatic atrophy is identified. 3 cm fat containing left adrenal mass is unchanged. Right adrenal gland is unremarkable. Mild atrophy of both kidneys is seen. Prominent 3 cm cyst projects off the inferior left kidney. Mild pelvic free fluid. Heavy atherosclerosis. No fracture present. IMPRESSION: Mild ascites and small pleural effusions. Heavy atherosclerosis. Medical Problem List: Edema, shortness of breath secondary to acute on chronic systolic congestive heart failure with ejection fraction 35%. 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 Patient found to be in acute on chronic systolic CHF. Patient admitted for treatment. Hospital Course: Patient presented with edema and shortness of breath secondary to acute on chronic systolic congestive heart failure with ejection fraction about 35%. Patient was treated during her stay. Patient evaluated by Cardiology. Echocardiogram shows ejection fraction 35%. Medications were adjusted. Lasix was increased and Metalozone was discontinued. Patient responded to therapy well. Patient found to have mild ascites and pleural effusions. This improved. Recommendation is to recheck chest x-ray in 2-4 weeks to monitor progress. If ascites persists recommendation is for further evaluation with GI. At discharge she will continue with Lasix 80 mg 1 pill twice daily. Metolazone was discontinued She is to continue with a 1500 cc per day fluid restriction and low-salt diet. She will continue with carvedilol 3.125 1 pill twice daily. Recommendation is for the patient to follow up with cardiology in 1 week to continue to monitor her care. Education on CHF will be provided. Recommendation to recheck lab-CBC and BMP in 1 week to monitor progress. Prior to discharge home health will be provided for education and monitoring of CHF. Patient has Chronic renal disease, stage 3. This remained stable during the course of her stay. Recommendation is to recheck lab-BMP in 1 week to monitor her progress. Recommendation on no further use of nonsteroidal anti- inflammatories is recommended. Future medications will need to be renally dosed. Recommendation is to establish care with Nephrology to further monitor. Patient has Chronic atrial fibrillation on chronic anti coagulation therapy- Eliquis. Patient will continue with Eliquis 2.5 mg 1 pill twice daily. Patient will continue with carvedilol 3.125 mg 1 pill twice daily. Patient will also continue with amiodarone 200 mg daily Patient has hypertension. Medications adjusted during her stay. Carvedilol was decreased. At discharge Patient will continue with carvedilol 3.125 mg mg 1 pill twice daily. Recommendation is to maintain blood pressures less 150/80. Further adjustment can be done by her PCP. Medications may need to be held if blood pressure less than 100 systolic. Patient has Hyperlipidemia. At discharge she will continue with Lipitor 40 mg 1 pill daily. Patient has Diabetes mellitus type 2 insulin dependent. At discharge she will continue with Lantus 30 units subcu daily. Recommendation is to maintain blood sugars less 140 fasting and less than 200 after meals. Further adjustment can be done by her PCP. Education on hypoglycemia will be provided. Patient has diabetic neuropathy. She will continue with Neurontin 100 mg 1 pill twice daily. Patient has Depression with anxiety. Patient will continue with Zoloft 50 mg 1 pill daily and Xanax 1 mg at night. Patient likely has GERD. Patient will continue with Prevacid 30 mg 1 pill once daily at discharge. Patient has anemia of chronic disease. Recommendation to recheck lab-CBC in 1 week to monitor progress. Vital Signs/Physical Exam: Temp Pulse Resp BP Pulse Ox 97.7 F 71 18 129/70 95 05/22/18 12:00 05/22/18 12:00 05/22/18 12:00 05/22/18 12:00 05/22/18 12:00 General: Alert, In no apparent distress, Oriented x3, Cooperative HEENT: Atraumatic Neck: Supple Respiratory: Clear to auscultation bilaterally, Normal air movement Cardiovascular: Normal pulses, Regular rate/rhythm Gastrointestinal: Normal bowel sounds, Soft and benign, Non-distended, No tenderness, No masses, No rebound, No guarding Musculoskeletal: No erythema, No tenderness, No warmth Integumentary: No tenderness/swelling, No erythema, No warmth, No cyanosis Neurological: Normal speech, Normal strength at 5/5 x4 extr, Normal tone, Normal affect Laboratory Data at Discharge: WBC 3.4 K/uL (4.3-10.9) L D 05/21/18 04:49 Hgb 10.0 g/dL (12.0-15.0) L 05/21/18 04:49 Hct 31.3 % (36.0-45.0) L 05/21/18 04:49 Plt Count 161 K/uL (152-406) D 05/21/18 04:49 Sodium 141 mmol/L (136-145) 05/22/18 04:50 Potassium 4.7 mmol/L (3.5-5.1) 05/22/18 04:50 BUN 50 mg/dL (7-18) H 05/22/18 04:50 Creatinine 1.90 mg/dL (0.55-1.3) H 05/22/18 04:50 Glucose 124 mg/dL (74-106) H 05/22/18 04:50 Total Bilirubin 0.5 mg/dL (0.2-1.0) 05/22/18 04:50 AST 9 U/L (15-37) L 05/22/18 04:50 ALT 12 U/L (12-78) 05/22/18 04:50 Alkaline Phosphatase 108 U/L (45-117) 05/22/18 04:50 Lipase 80 U/L (73-393) 05/19/18 12:45 Home Medications: ALPRAZolam [Xanax*] 1 tab PO BEDTIME 05/03/18 Amiodarone HCl [Cordarone*] 200 mg PO DAILY 05/03/18 Atorvastatin Calcium [Lipitor] 1 tab PO DAILY 05/03/18 Docusate [Colace Cap*] 1 tab PO BID 05/03/18 Gabapentin [Neurontin*] 100 mg PO BID 05/03/18 Insulin Glargine,Hum.rec.anlog [Lantus] 30 unit SQ BEDTIME 05/03/18 Lansoprazole [Prevacid] 1 cap PO DAILY 05/03/18 Sertraline [Zoloft*] 50 mg PO DAILY 05/03/18 Apixaban [Eliquis *] 2.5 mg PO BID #60 tablet 05/22/18 Carvedilol [Coreg] 3.125 mg PO BID #60 tab 05/22/18 Furosemide [Lasix] 80 mg PO DAILY #30 tablet 05/22/18 New Medications: Apixaban [Eliquis *] 2.5 mg PO BID #60 tablet Carvedilol [Coreg] 3.125 mg PO BID #60 tab Furosemide [Lasix] 80 mg PO DAILY #30 tablet Patient Discharge Instructions: 1. Patient will need to follow up with PCP in 1 week to follow up this hospitalization. 2. Patient presented with edema and shortness of breath secondary to acute on chronic systolic congestive heart failure with ejection fraction about 35%. Patient was treated during her stay. Patient evaluated by Cardiology. Echocardiogram shows ejection fraction 35%. Medications were adjusted. Lasix was increased and Metalozone was discontinued. Patient responded to therapy well. Patient found to have mild ascites and pleural effusions. This improved. Recommendation is to recheck chest x-ray in 2-4 weeks to monitor progress. If ascites persists recommendation is for further evaluation with GI. At discharge she will continue with Lasix 80 mg 1 pill twice daily. Metolazone was discontinued. She is to continue with a 1500 cc per day fluid restriction and low-salt diet. She will continue with carvedilol 3.125 1 pill twice daily. Recommendation is for the patient to follow up with cardiology in 1 week to continue to monitor her care. Education on CHF will be provided. Recommendation to recheck lab-CBC and BMP in 1 week to monitor progress. Prior to discharge home health will be provided for education and monitoring of CHF. 3. Patient has Chronic renal disease, stage 3. This remained stable during the course of her stay. Recommendation is to recheck lab-BMP in 1 week to monitor her progress. Recommendation on no further use of nonsteroidal anti-inflammatories is recommended. Future medications will need to be renally dosed. Recommendation is to establish care with Nephrology to further monitor. 4. Patient has Chronic atrial fibrillation on chronic anti coagulation therapy-Eliquis. Patient will continue with Eliquis 2.5 mg 1 pill twice daily. Patient will continue with carvedilol 3.125 mg 1 pill twice daily. Patient will also continue with amiodarone 200 mg daily. 5. Patient has hypertension. Medications adjusted during her stay. Carvedilol was decreased. At discharge Patient will continue with carvedilol 3.125 mg mg 1 pill twice daily. Recommendation is to maintain blood pressures less 150/80. Further adjustment can be done by her PCP. Medications may need to be held if blood pressure less than 100 systolic. 6. Patient has Hyperlipidemia. At discharge she will continue with Lipitor 40 mg 1 pill daily. 7. Patient has Diabetes mellitus type 2 insulin dependent. At discharge she will continue with Lantus 30 units subcu daily. Recommendation is to maintain blood sugars less 140 fasting and less than 200 after meals. Further adjustment can be done by her PCP. Education on hypoglycemia will be provided. 8. Patient has diabetic neuropathy. She will continue with Neurontin 100 mg 1 pill twice daily. 9. Patient has Depression with anxiety. Patient will continue with Zoloft 50 mg 1 pill daily and Xanax 1 mg at night. 10. Patient likely has GERD. Patient will continue with Prevacid 30 mg 1 pill once daily at discharge. 11. Patient has anemia of chronic disease. Recommendation to recheck lab-CBC in 1 week to monitor progress. Diet: AHA Activity: Fall precautions Followup: Jace Persaud MD [ACTIVE - CAN ADMIT] - Time spent managing pt's care (in minutes): 55
--- NOTE | 2018-05-22 15:34 | EKG ---
Test Date: 2018-05-22 Test Time: 12:37:24 Medical Housekeeper: LEIDY MEASUREMENT RESULTS: Intervals: Rate: 70 AK: QRSD: 198 QT: 480 QTc: 518 [place]: P: AK: QRS: -63 T: 118 INTERPRETIVE STATEMENTS: Rhythm consistent with VVI pacing Abnormal ECG Compared to ECG 05/02/2018 12:51:32 no significant change from previous ECG Electronically Signed On 05-22-18 15:34:08 CDT by Umer Rowley
[2018-05-22] MEDS ORDERED: INFLUENZA VACCINE (for 3y+) 0.5 ML DOSE IMVAC ONE (16:00)
[2018-05-22 20:15] VITALS: O2SAT 97
== END 2018-05-22 17:31 | disposition home health service (06) | DRG 291 ==
LOC: ER 12:12 → ERHOLD 15:03 → 4TH 17:03
PROVIDERS: ADMIT Family Medicine; ATTEND Family Medicine
DX: I13.0 Hypertensive heart and chronic kidney disease with heart failure and stage 1 through stage 4 chronic kidney disease, or unspecified chronic kidney disease (principal); I50.23 Acute on chronic systolic (congestive) heart failure; N18.3 Chronic kidney disease, stage 3 (moderate); E11.22 Type 2 diabetes mellitus with diabetic chronic kidney disease; D63.1 Anemia in chronic kidney disease; F41.8 Other specified anxiety disorders; E11.40 Type 2 diabetes mellitus with diabetic neuropathy, unspecified; E27.9 Disorder of adrenal gland, unspecified; N28.1 Cyst of kidney, acquired; E78.5 Hyperlipidemia, unspecified; Z85.118 Personal history of other malignant neoplasm of bronchus and lung; Z86.718 Personal history of other venous thrombosis and embolism; Z79.01 Long term (current) use of anticoagulants; Z95.0 Presence of cardiac pacemaker; Z23 Encounter for immunization; I48.2 Chronic atrial fibrillation; I27.20 Pulmonary hypertension, unspecified
CPT/HCPCS: 36415; 71045; 74018; 74176; 80048; 80053; 80076; 82962; 83690; 83880; 85025; 85027; 93005; 93306; 94760; 96374; 99285; G0008; J2405; Q2035

== ENCOUNTER 2018-08-23 06:01 | Inpatient (IN) | payer OTHER ==
--- OUTSIDE RECORDS SUMMARY | 2018-08-23 06:03 | XMS REPORT | Clinical Summary ---
:1935 Author Organization [facility] Address [address] [place] [address] Care Team Providers Name Role Phone Jace Persaud MD Primary Care Provider Allergies Active Allergy Reactions Severity Noted Date Comments Propafenone 01/23/2016 Medications Medication Sig Dispensed Refills Start Date End Date Status metFORMIN (GLUCOPHAGE) Take 500 mg by 0 Active 500 MG tablet mouth 2 (two) times a day with meals. lisinopril Take 10 mg by 0 Active (PRINIVIL,ZESTRIL) 10 MG mouth daily. tablet apixaban (ELIQUIS) 5 mg Take 2.5 mg by 0 Active tablet mouth 2 (two) times a day. sertraline (ZOLOFT) 50 Take 50 mg by 0 Active MG tablet mouth daily. atorvastatin (LIPITOR) Take 40 mg by 0 Active 40 MG tablet mouth daily with dinner. lansoprazole (PREVACID) Take 30 mg by 0 Active 30 MG capsule mouth daily before breakfast. diphenhydrAMINE Take 25 mg by 0 Active (BENADRYL) 25 mg tablet mouth nightly as needed for sleep. cyanocobalamin 1000 MCG Take 1,000 mcg 0 Active tablet by mouth daily. Active Problems Problem Noted Date Intertrochanteric fracture of left femur 05/11/2017 Systolic heart failure, chronic 04/21/2017 Acute kidney injury superimposed on CKD 04/21/2017 Type 2 diabetes mellitus with hyperglycemia 04/21/2017 Hip fracture requiring operative repair 04/15/2017 Social History Tobacco Use Types Packs/Day Years Used Date Never Smoker Alcohol Use Drinks/Week oz/Week Comments No Sex Assigned at Date Recorded Not on file Job Start Date Occupation Industry Not on file Not on file Not on file Travel History Travel Start Travel End No recent travel history available. Last Filed Vital Signs Not on file Plan of Treatment Health Maintenance Due Date Last Done Comments DIABETIC RETINAL EYE EXAM 1935 DIABETIC FOOT EXAM 1945 SHINGLES VACCINES (1 of 2) 1985 PNEUMOCOCCAL POLYSACCHARIDE VACCINE AGE 65 AND OVER 02/01/2000 PNEUMOCOCCAL-13 02/01/2000 INFLUENZA VACCINE 03/22/2018 Implants Implanted Type Area Exhibition Specialist Device Shelf Model / Identifier Expiration Serial / Date Lot T2 F/T Locking Screw 5mmx32.5mm - [id number] IMPLANT Left: ANGEL [id number] / Implanted: 04/19/2017 (Quantity not on file) DEVICES [employer] / Nail Im Trchntrc W/ Set Scr Ti 130deg [id number] Strl - [id number] Orthopedic Left: ANGEL 09/21/2021 [id number] / Implanted: 04/19/2017 (Quantity not on file) [employer] / Implants [id number] Shaft Trnkl Modlr 448mm Strl - [id number] Orthopedic N/A: N/A ANGEL [id number] [id number] / Implanted: Qty: 1 on 04/19/2017 by Josias Woods MD [employer] / Implants [id number] Screw Bone Lag Ti [id number] - [id number] Orthopedic Left: ANGEL [id number] / Implanted: 04/19/2017 (Quantity not on file) [employer] / Implants Results Not on fileafter 08/22/2017 Insurance Payer Benefit Plan / Group Subscriber ID Type Phone Address MEDICARE MEDICARE PART A AND B xxxxxxxxxx Medicare [place], [place] AETNA AETNA HMO,POS,EPO, MC/EC xxxxxx HMO Advance Directives Patient has advance care planning documents on file. For more information, please contact:[place] [address]
--- OUTSIDE RECORDS SUMMARY | 2018-08-23 06:04 | XMS REPORT | Continuity of Care Document ---
:1935 Author Organization Interface Problems Problem Status Onset Classification Date Comments Source Date Reported Discharge 05/12/2017 [facility] Diagnosis: 7 Complication of Salcedo catheter CATHETER PAIN Active [facility] 7 Jose Medications Medication Details Route Status Patient Ordering Order Source Instructions Provider Date Acetaminophen 1 tab, Inactive MH 300 MG / Codeine Route: PO, 017 [place] Phosphate 30 MG Drug Form: Oral Tablet TAB, [Tylenol with Dosing Codeine #3] Weight 81.818, kg, ONCE, STAT, Start date: 05/09/17 21:22:00 CDT, Stop date: 05/09/17 21:22:00 CDTNotes: Do not exceed 4gm/day of acetaminop hen. (Same as: Tylenol with Codeine # 3) Allergies, Adverse Reactions, Alerts Substance Category Reaction Severity Reaction Status Date Comments Source type Reported Rythmol Assertion Drug Active allergy [place] Immunizations Immunization Date Given Site Status Last Updated Comments Source Results Order Results Value Reference Date Interpretation Comments Source Name Range Vital Signs Vital Sign Value Date Comments Source Heart Rate 61 05/10/2017 [facility] Respitory Rate 18 05/10/2017 [facility] Temperature Oral (F) 98.2 F 05/10/2017 [facility] Systolic (mm Hg) 132 05/10/2017 [facility] Diastolic (mm Hg) 76 05/10/2017 [facility] Systolic (mm Hg) 142 05/09/2017 [facility] Diastolic (mm Hg) 72 05/09/2017 [facility] Respitory Rate 18 05/09/2017 [facility] Heart Rate 64 05/09/2017 [facility] Temperature Oral (F) 98.2 F 05/09/2017 [facility] Heart Rate 62 05/09/2017 [facility] Systolic (mm Hg) 152 05/09/2017 [facility] Diastolic (mm Hg) 68 05/09/2017 [facility] Respitory Rate 18 05/09/2017 [facility] BMI Calculated 29.11 05/09/2017 [facility] Height 167.64 cm 05/09/2017 [facility] Weight 81.818 05/09/2017 [facility] Temperature Oral (F) 98.0 F 05/09/2017 [facility] Encounters Location Location Encounter Encounter Reason Attending ADM DC Status Source Details Type Number For Provider Date Date Visit [facility] [id number] Sergey 05/09 05/10 KERWIN Hinson /2016 [facility] Procedures Procedure Code Date Perfomer Comments Source Hip arthroplasty [id number] [facility]
[2018-08-23] MEDS ORDERED: NA CHLORIDE 0.9% 1,000 ML ONE (06:26)
[2018-08-23 07:04] LABS: Absolute Lymphocytes (CBC) 0.8 K/uL (0.7-4.9); Absolute Monocytes 0.8 K/uL (0.1-1.3); Absolute Neutrophil 6.4 K/uL (1.8-8.0); Basophils % 0.3 % (0-1.3); Eosinophils % 0.3 % (0-4.4); Hematocrit 34.7 % (36.0-45.0); Lymphocytes % 10.1 % (15.3-44.8); MPV 8.5 fL (7.6-11.3); Monocytes % 9.3 % (3.3-12.3); RBC Red Blood Cell Count 4.29 M/uL (3.86-4.86)
[2018-08-23 07:17] LABS: Albumin 3.1 g/dL (3.4-5.0); Bilirubin Direct 0.6 mg/dL (0-0.2); Protein, Total 7.1 g/dL (6.4-8.2)
[2018-08-23 07:20] LABS: Potassium 6.5 mmol/L (3.5-5.1)
[2018-08-23 07:23] LABS: Urine Bacteria <20 /HPF (<20); Urine Culture Reflex Order NOT NEEDED; Urine RBC <5 /HPF (NONE SEEN)
[2018-08-23] MEDS ORDERED: CALCIUM GLUCONATE IV ONE (07:45)
[2018-08-23] MEDS ORDERED: INSULIN -REGULAR HUMAN 50 UNIT/0.5 ML ML ONE (07:48)
[2018-08-23] MEDS ORDERED: D50W 25 GM/50 ML SYRINGE IV ONE (07:48)
[2018-08-23] MEDS ORDERED: ALBUTEROL 2.5 MG/3 ML NEB SOL ONE (07:48)
[2018-08-23] MEDS ORDERED: Caclcium Chloride 10% INJ SYR IV ONE (07:51)
--- NOTE | 2018-08-23 07:52 | RAD REPORT ---
EXAM DESCRIPTION: CT - Stone Protocol - 08/23/2018 7:37 am CLINICAL HISTORY: Abdominal pain, dysuria COMPARISON: April 2018 TECHNIQUE: Axial [address] imaging of the abdomen and pelvis was performed without IV contrast. No IV contrast was given because of allergy, abnormal renal function, patient refusal or physician re quest. Oral contrast was given. All CT scans are performed using dose optimization technique as appropriate and may include automated exposure control or mA/KV adjustment according to patient size. FINDINGS: Cardiomegaly is present with a small pericardial effusion. Small bilateral pleural effusio ns are present. Dense calcification of the bronchial tree noted. Minimal left lung base atelectasis c hanges are present. There is a masslike consolidation in the right infrahilar region only partially v isualized on this study. Air bronchograms are present. Liver and spleen show no focal finding on noncontrast imaging. No clear change from prior examination . Pancreatic atrophy seen with no acute pancreatic process confirmed. Gallbladder assessment is limit ed due to motion. No gross abnormality. Gallstones are possibly present. There is dense arterial tree calcification adjacent to the gallbladder that limits assessment of gallstones. No biliary tree dila tation. No hydronephrosis of either kidney. Dense arterial tree calcifications are present. A 3.3 centimeter exophytic isodense mass projects from the lower pole left kidney stable from April 2018. Right a drenal gland fullness has not changed. A 3.5 centimeter mostly fat attenuation left adrenal mass has not changed. Isodense renal masses and pyelonephritis cannot be excluded in the absence of IV contras t. Urinary bladder is fully contracted around a Salcedo catheter. Uterus has not changed. Prominent emanuel cifications are noted. Ovaries are obscured. Stomach is decompressed. No dilated large or small bowel. Diverticulosis is present. Active GI proces s is not suspected. No free air or pneumatosis. Mild to moderate ascites present increased somewhat f rom April. There is fluid retention in the subcutaneous fatty tissues as well. No mass or bulky l ymphadenopathy. Disc and bony degenerative changes are present. Left femur postsurgical changes are noted. IMPRESSION: No bowel obstruction, free air or surgically emergent finding. Failure/ volume overload pattern is seen with cardiomegaly, pericardial effusion, pleural effusions, increasing ascites and subcutaneous fat fluid retention. Masslike consolidation in the right infrahilar region only partially imaged. In the acute clinical se tting this is most likely pneumonia. Malignant etiology is not excluded. Approximately 3.3 centimeter exophytic isodense mass lower pole left kidney similar to April 2018 . This could be a complex cyst or solid mass. Full assessment is limited is the absence of IV contrast.
--- NOTE | 2018-08-23 07:56 | EKG ---
Test Date: 2018-08-23 Test Time: 06:07:33 Blender Operator: RUBÉN MEASUREMENT RESULTS: Intervals: Rate: 70 [place]: QRSD: 198 QT: 482 QTc: 520 [place]: P: [place]: QRS: -68 T: 114 INTERPRETIVE STATEMENTS: Ventricular-paced rhythm Abnormal ECG Compared to ECG 05/22/2018 12:37:24 No significant changes Electronically Signed On 08-23-18 07:55:26 HIGH TENSION TESTER by Umer Rowley
--- NOTE | 2018-08-23 08:48 | EDPHYS ---
Physician Documentation [facility] Name: Juvenal Engle Age: 83 yrs Sex: Female : 1935 Arrival Date: 08/23/2018 Time: 06:06 Bed 6 Private MD: ED Physician Matthias Kraus HPI: 08/23 07:27 This 83 yrs old Female presents to ER via EMS with complaints of Abdominal snw Pain. 07:27 The patient presents with abdominal pain abdominal distention. Onset: The snw symptoms/episode began/occurred 1 month(s) ago, and became persistent. The symptoms do not radiate. Associated signs and symptoms: Pertinent positives: dysuria, early satiety . The symptoms are described as vague. Severity of pain: At its worst the pain was moderate. The patient has experienced similar episodes in the past. hospitalized recently. Historical: - Allergies: 06:16 Amitriptyline; aa1 06:16 Januvia; aa1 06:16 propafenone HCl; aa1 06:16 rosiglitazone maleate; aa1 06:16 Rythmol; aa1 06:16 sitagliptin phosphate; aa1 06:16 Tape; aa1 - Home Meds: 06:16 alprazolam 0.5 mg Oral tab as needed [Active]; Lasix 40 mg Oral tab 1 tab once daily aa1 [Active]; gabapentin 100 mg Oral cap [Active]; Eliquis oral oral [Active]; sertraline 50 mg Oral tab 1 tab once daily [Active]; lansoprazole 30 mg Oral cpDR 1 cap once daily [Active]; carvedilol 6.25 mg Oral tab 1 tab 2 times per day [Active]; atorvastatin 40 mg Oral tab 1 tab once daily [Active]; - PMHx: 06:16 Anemia; Anxiety; Cancer, Lung; Diabetes - IDDM; GERD; hital hernia; Hypertension; CHF; aa1 Depression; - PSHx: 06:16 pacemaker; aa1 - Immunization history:: Flu vaccine is up to date. - Social history:: Smoking status: Patient/guardian denies using tobacco. - Ebola Screening: : Patient denies exposure to infectious person Patient denies travel to an Ebola-affected area in the 21 days before illness onset. ROS: 07:12 Eyes: Negative for injury, pain, redness, and discharge, ENT: Negative for injury, snw pain, and discharge, Neck: Negative for injury, pain, and swelling, Cardiovascular: Negative for chest pain, palpitations, and edema, Respiratory: Negative for shortness of breath, cough, wheezing, and pleuritic chest pain. 07:12 Back: Negative for injury and pain. 07:12 MS/Extremity: Negative for injury and deformity, Skin: Negative for injury, rash, and discoloration, Neuro: Negative for headache, weakness, numbness, tingling, and seizure. 07:12 Constitutional: Positive for malaise, poor PO intake. 07:12 Abdomen/GI: Positive for abdominal pain, nausea, abdominal distension. 07:12 : Positive for urinary symptoms, small amounts. Exam: 07:11 Constitutional: This is a well developed, well nourished patient who is awake, alert, snw and in no acute distress. Head/Face: Normocephalic, atraumatic. Eyes: Pupils equal round and reactive to light, extra-ocular motions intact. Lids and lashes normal. Conjunctiva and sclera are non-icteric and not injected. Cornea within normal limits. Periorbital areas with no swelling, redness, or edema. ENT: Nares patent. No nasal discharge, no septal abnormalities noted. Tympanic membranes are normal and external auditory canals are clear. Oropharynx with no redness, swelling, or masses, exudates, or evidence of obstruction, uvula midline. Mucous membranes moist. Neck: Trachea midline, no thyromegaly or masses palpated, and no cervical lymphadenopathy. Supple, full range of motion without nuchal rigidity, or vertebral point tenderness. No Meningismus. Chest/axilla: Normal chest wall appearance and motion. Nontender with no deformity. No lesions are appreciated. Cardiovascular: Regular rate and rhythm with a normal S1 and S2. No gallops, murmurs, or rubs. Normal PMI, no JVD. No pulse deficits. 07:11 Back: No spinal tenderness. No costovertebral tenderness. Full range of motion. Skin: Warm, dry with normal turgor. Normal color with no rashes, no lesions, and no evidence of cellulitis. MS/ Extremity: Pulses equal, no cyanosis. Neurovascular intact. Full, normal range of motion. Neuro: Awake and alert, GCS 15, oriented to person, place, time, and situation. Cranial nerves II-XII grossly intact. Motor strength 5/5 in all extremities. Sensory grossly intact. Cerebellar exam normal. Normal gait. Psych: Awake, alert, with orientation to person, place and time. Behavior, mood, and affect are within normal limits. 07:11 Respiratory: the patient does not display signs of respiratory distress, Respirations: normal, Breath sounds: + upper airway congestion. 07:11 Abdomen/GI: Inspection: distension, Bowel sounds: active, Palpation: soft, mild abdominal tenderness, in the abdomen. Vital Signs: 06:10 BP 135 / 70; Pulse 70; Resp 20; Temp 98.0; Pulse Ox 94% on R/A; Weight 96.16 kg; Height aa1 4 ft. 11 in. (149.86 cm); Pain 8/10; 06:56 BP 113 / 57 Standing; Pulse 70; Resp 20; Pulse Ox 100% on 3 lpm NC; rr5 08:11 BP 117 / 53; Pulse 70; Resp 16; Pulse Ox 100% on 3 lpm NC; ph 09:39 BP 111 / 66; Pulse 65; Resp 18; Pulse Ox 100% on 3 lpm NC; ph 11:00 BP 115 / 58; Pulse 70; Resp 18; Temp 97.5; Pulse Ox 100% on 3 lpm NC; ph 11:35 BP 132 / 56; Pulse 70; Resp 18; Pulse Ox 99% on 3 lpm NC; ph 06:10 Body Mass Index 42.82 (96.16 kg, 149.86 cm) aa1 MDM: 06:14 Patient medically screened. snw 08:48 Data reviewed: vital signs, nurses notes. Data interpreted: Pulse oximetry: on room air snw is 100 %. Interpretation: normal. Counseling: I had a detailed discussion with the patient and/or guardian regarding: the historical points, exam findings, and any diagnostic results supporting the discharge/admit diagnosis, lab results, radiology results, the need for further work-up and treatment in the hospital. Physician consultation: Mary Figueroa MD was called at 08:30, regarding admission. 08/23 06:06 Order name: Basic Metabolic Panel; Complete Time: 07:25 aa1 08/23 06:06 Order name: CBC with Diff; Complete Time: 07:35 aa1 08/23 06:06 Order name: Creatinine for Radiology; Complete Time: 07:07 aa08/23 06:06 Order name: Hepatic Function; Complete Time: 07:25 aa08/23 06:06 Order name: Lipase; Complete Time: 07:25 aa08/23 06:13 Order name: Urine Microscopic Only; Complete Time: 07:25 snw 08/23 06:13 Order name: Urine Culture w 08/23 06:37 Order name: Blood Culture Adult (2) w 08/23 06:56 Order name: Urine Dipstick--Ancillary (enter results) mw2 08/23 06:57 Order name: Urine Dipstick-Ancillary EDMS 08/23 07:08 Order name: CT Stone Protocol; Complete Time: 07:54 snw 08/23 08:40 Order name: Chem 7; Complete Time: 10:08 snw 08/23 06:06 Order name: IV Saline Lock; Complete Time: 06:21 aa08/23 06:06 Order name: Labs collected and sent; Complete Time: 06:54 aa08/23 06:13 Order name: Cath; Complete Time: 06:54 snw 08/23 07:35 Order name: EKG; Complete Time: 07:35 snw 08/23 07:35 Order name: EKG - Nurse/Tech; Complete Time: 08:05 snw Administered Medications: 06:22 Drug: NS 0.9% 1000 ml Route: IV; Rate: 75 ml/hr; Site: right hand; ca1 11:31 Follow up: IV Status: Infusion continued upon admission ph 07:28 CANCELLED (other intervention used): D50W 50 ml IVP once; (1 amp) snw 07:45 Drug: Albuterol 2.5 mg Route: Inhalation; ph 07:55 Drug: Calcium Chloride 10% 10 ml Route: IVP; Site: right hand; ph 11:31 Follow up: Response: No adverse reaction ph 07:58 Drug: D50W 25 ml Route: IVP; Site: right hand; ph 11:32 Follow up: Response: No adverse reaction ph 08:00 Drug: Insulin Regular Human 10 units {Co-Signature: la1 (Kamaljit Hooks RN).} Route: IVP; ph Site: right hand; 11:31 Follow up: Response: No adverse reaction ph 08:03 Drug: Sodium Bicarbonate 1 amp Route: IVP; Site: right hand; ph 11:32 Follow up: Response: No adverse reaction ph 08:05 Drug: Albuterol 2.5 mg Route: Inhalation; ph 08:25 Drug: Albuterol 2.5 mg Route: Inhalation; ph 09:20 Drug: Lasix 20 mg Route: IVP; Site: right hand; ph 11:32 Follow up: Urine output 275 ml; Response: No adverse reaction ph Disposition: 08/23/18 08:48 Hospitalization ordered by Flaquita Dubon for Inpatient Admission. Preliminary diagnosis are Fluid overload, Hyperkalemia, Heart failure, unspecified, Renal insufficiency. - Bed requested for Telemetry/MedSurg (Inpatient). - Status is Inpatient Admission. ph - Condition is Fair. - Problem is an acute exacerbation. - Symptoms have worsened. UTI on Admission? No Addendum: 08/30/2018 08:07 Co-signature as Attending Physician, Bill Hamilton MD I agree with the assessment and c calderón plan of care. Signatures: Dispatcher [employer] EDMS Noris Bird RN RN aa1 Bill Hamilton MD MD cha Therrien, Shelly, DOCTOR OF PHARMACY-C DOCTOR OF PHARMACY-Csnw Allie Pickard Patricia, RN RN Ruthann Buck RN RN Marlee Granado RN RN [facility] Kamaljit Hooks RN la1 Corrections: (The following items were deleted from the chart) 08/23 07:28 07:27 D50W 50 ml IVP once; (1 amp) ordered. snw snw 10:45 08:48 Hospitalization Ordered by Mayr Figueroa MD for Inpatient Admission. Preliminary ag diagnosis is Fluid overload; Hyperkalemia; Heart failure, unspecified; Renal insufficiency. Bed requested for Telemetry/MedSurg (Inpatient). Status is Inpatient Admission. Condition is Fair. Problem is an acute exacerbation. Symptoms have worsened. UTI on Admission? No. snw 11:02 10:45 08/23/2018 08:48 Hospitalization Ordered by Mary Figueroa MD for Inpatient snw Admission. Preliminary diagnosis is Fluid overload; Hyperkalemia; Heart failure, unspecified; Renal insufficiency. Bed requested for Telemetry/MedSurg (Inpatient). Status is Inpatient Admission. Condition is Fair. Problem is an acute exacerbation. Symptoms have worsened. UTI on Admission? No. ag 11:37 11:02 08/23/2018 08:48 Hospitalization Ordered by Flaquita Dubon MD for Inpatient df Admission. Preliminary diagnosis is Fluid overload; Hyperkalemia; Heart failure, unspecified; Renal insufficiency. Bed requested for Telemetry/MedSurg (Inpatient). Status is Inpatient Admission. Condition is Fair. Problem is an acute exacerbation. Symptoms have worsened. UTI on Admission? No. snw 11:53 11:37 08/23/2018 08:48 Hospitalization Ordered by Flaquita Dubon MD for Inpatient ph Admission. Preliminary diagnosis is Fluid overload; Hyperkalemia; Heart failure, unspecified; Renal insufficiency. Bed requested for Telemetry/MedSurg (Inpatient). Status is Inpatient Admission. Condition is Fair. Problem is an acute exacerbation. Symptoms have worsened. UTI on Admission? No. df
--- NOTE | 2018-08-23 08:48 | ER ---
Nurse's Notes [facility] Name: Juvenal Egnle Age: 83 yrs Sex: Female : 1935 Arrival Date: 08/23/2018 Time: 06:06 Bed 6 Private MD: Diagnosis: Fluid overload;Hyperkalemia;Heart failure, unspecified;Renal insufficiency Presentation: 08/23 06:07 Presenting complaint: Patient states: gen abd pain, bloating, and burning with aa1 urination for past several months. Reports aching pain 03/31. Denies constipation. Transition of care: patient was not received from another setting of care. Onset of symptoms was June 2018. Risk Assessment: Do you want to hurt yourself or someone else? Patient reports no desire to harm self or others. Initial Sepsis Screen: Does the patient meet any 2 criteria? No. Patient's initial sepsis screen is negative. Does the patient have a suspected source of infection? Yes: Acute abdominal pain. Care prior to arrival: IV initiated. 22 GA, in the right hand, Glucose check: 239 Oxygen administered. via nasal cannula. 06:07 Method Of Arrival: EMS: [facility] aa1 06:07 Acuity: [place] 3 aa1 Historical: - Allergies: 06:16 Amitriptyline; aa1 06:16 Januvia; aa1 06:16 propafenone HCl; aa1 06:16 rosiglitazone maleate; aa1 06:16 Rythmol; aa1 06:16 sitagliptin phosphate; aa1 06:16 Tape; aa1 - Home Meds: 06:16 alprazolam 0.5 mg Oral tab as needed [Active]; Lasix 40 mg Oral tab 1 tab once daily aa1 [Active]; gabapentin 100 mg Oral cap [Active]; Eliquis oral oral [Active]; sertraline 50 mg Oral tab 1 tab once daily [Active]; lansoprazole 30 mg Oral cpDR 1 cap once daily [Active]; carvedilol 6.25 mg Oral tab 1 tab 2 times per day [Active]; atorvastatin 40 mg Oral tab 1 tab once daily [Active]; - PMHx: 06:16 Anemia; Anxiety; Cancer, Lung; Diabetes - IDDM; GERD; hital hernia; Hypertension; CHF; aa1 Depression; - PSHx: 06:16 pacemaker; aa1 - Immunization history:: Flu vaccine is up to date. - Social history:: Smoking status: Patient/guardian denies using tobacco. - Ebola Screening: : Patient denies exposure to infectious person Patient denies travel to an Ebola-affected area in the 21 days before illness onset. Screenin:18 Abuse screen: Denies threats or abuse. Denies injuries from another. Nutritional rr5 screening: No deficits noted. Tuberculosis screening: No symptoms or risk factors identified. Fall Risk IV access (20 points). Total Navarrete Fall Scale indicates No Risk (0-24 pts). Assessment: 06:07 General: Appears in no apparent distress. uncomfortable, Behavior is calm, cooperative, rr5 appropriate for age. Pain: Complains of pain in abdomen Pain does not radiate. Pain currently is 8 out of 10 on a pain scale. Quality of pain is described as aching, Pain began gradually, Is intermittent. Neuro: Level of Consciousness is awake, alert, obeys commands, Oriented to person, place, time, situation, Appropriate for age. Cardiovascular: Capillary refill < 3 seconds Patient's skin is warm and dry. Respiratory: Airway is patent Respiratory effort is even, unlabored, Respiratory pattern is regular, symmetrical. GI: Abdomen is obese, Bowel sounds present X 4 quads. bloated Reports lower abdominal pain, upper abdominal pain, bloating. : Reports burning with urination. EENT: No signs and/or symptoms were reported regarding the EENT system. Derm: Skin is fragile, is thin, has skin tears on lower extremitites. Musculoskeletal: Capillary refill < 3 seconds, Range of motion: intact in all extremities. 07:00 Reassessment: Patient appears in no apparent distress at this time. Patient and/or rr5 family updated on plan of care and expected duration. Pain level reassessed. 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 08:12 Reassessment: Patient appears in no apparent distress at this time. Patient and/or ph family updated on plan of care and expected duration. Pain level reassessed. Patient is alert, oriented x 3, equal unlabored respirations, skin warm/dry/pink. Pt resting quietly, awaiting CT results, family at bedside. 09:30 Reassessment: Patient appears in no apparent distress at this time. Patient and/or ph family updated on plan of care and expected duration. Pain level reassessed. Patient is alert, oriented x 3, equal unlabored respirations, skin warm/dry/pink. 10:30 Reassessment: Patient appears in no apparent distress at this time. Patient and/or ph family updated on plan of care and expected duration. Pain level reassessed. Pt resting quietly w/ eyes closed, respirations even and unlabored. 11:33 Reassessment: Patient appears in no apparent distress at this time. Patient and/or ph family updated on plan of care and expected duration. Pain level reassessed. Patient is alert, oriented x 3, equal unlabored respirations, skin warm/dry/pink. Report given to Brenda ARMSTRONG, pt taken to 2nd floor via stretcher. Vital Signs: 06:10 BP 135 / 70; Pulse 70; Resp 20; Temp 98.0; Pulse Ox 94% on R/A; Weight 96.16 kg; Height aa1 4 ft. 11 in. (149.86 cm); Pain 8/10; 06:56 BP 113 / 57 Standing; Pulse 70; Resp 20; Pulse Ox 100% on 3 lpm NC; rr5 08:11 BP 117 / 53; Pulse 70; Resp 16; Pulse Ox 100% on 3 lpm NC; ph 09:39 BP 111 / 66; Pulse 65; Resp 18; Pulse Ox 100% on 3 lpm NC; ph 11:00 BP 115 / 58; Pulse 70; Resp 18; Temp 97.5; Pulse Ox 100% on 3 lpm NC; ph 11:35 BP 132 / 56; Pulse 70; Resp 18; Pulse Ox 99% on 3 lpm NC; ph 06:10 Body Mass Index 42.82 (96.16 kg, 149.86 cm) aa1 ED Course: 06:06 Patient arrived in ED. aa1 06:07 EKG done, by ED staff, reviewed by Matthias Kraus MD. at1 06:10 Triage completed. aa1 06:10 Patient has correct armband on for positive identification. Bed in low position. Call rr5 light in reach. Side rails up X2. night monitor on. Pulse ox on. NIBP on. 06:10 Noise minimized. Warm blanket given. Head of bed elevated. rr5 06:10 Arm band placed on. rr5 06:11 Josette Parks FNP-C is PHCP. snw 06:11 Matthias Kraus MD is Attending Physician. snw 06:15 Oxygen administration via nasal cannula \T\ 2L/min. aa1 06:15 Maintain EMS IV. Dressing intact. Good blood return noted. Site clean \T\ dry. Gauge \T\ rr 5 site: G22 right hand. IV is intact, Flushed right hand with 5 ml normal saline. 06:30 Inserted saline lock: 20 gauge in left antecubital area, using aseptic technique. Blood rr5 collected. inserted by control systems technician anderson. 06:53 Eris Baldwin, NATHANIEL is Primary Nurse. rr5 06:55 Salcedo cath inserted, using sterile technique, 16 Fr., by ga, balloon inflated, to rr5 gravity drainage, urine specimen collected. returned clear yellow urine. Patient tolerated well. 07:20 Notified ED physician of a critical lab result(s). K+ 6.5. ss 07:35 CT completed. Patient tolerated procedure well. Patient moved to CT via stretcher. sj Patient moved back from CT. 07:37 CT Stone Protocol In Process Unspecified. EDMS 08:46 Mary Figueroa MD is Hospitalizing Provider. snw 11:02 Hospitalizing Provider role handed off by Mary Figueroa MD snw 11:02 Flaquita Dubon MD is Hospitalizing Provider. snw 11:04 No provider procedures requiring assistance completed. Patient admitted, IV remains in ph place. Administered Medications: 06:22 Drug: NS 0.9% 1000 ml Route: IV; Rate: 75 ml/hr; Site: right hand; ca1 11:31 Follow up: IV Status: Infusion continued upon admission ph 07:28 CANCELLED (other intervention used): D50W 50 ml IVP once; (1 amp) snw 07:45 Drug: Albuterol 2.5 mg Route: Inhalation; ph 07:55 Drug: Calcium Chloride 10% 10 ml Route: IVP; Site: right hand; ph 11:31 Follow up: Response: No adverse reaction ph 07:58 Drug: D50W 25 ml Route: IVP; Site: right hand; ph 11:32 Follow up: Response: No adverse reaction ph 08:00 Drug: Insulin Regular Human 10 units {Co-Signature: la1 (Kamaljit Hooks RN).} Route: IVP; ph Site: right hand; 11:31 Follow up: Response: No adverse reaction ph 08:03 Drug: Sodium Bicarbonate 1 amp Route: IVP; Site: right hand; ph 11:32 Follow up: Response: No adverse reaction ph 08:05 Drug: Albuterol 2.5 mg Route: Inhalation; ph 08:25 Drug: Albuterol 2.5 mg Route: Inhalation; ph 09:20 Drug: Lasix 20 mg Route: IVP; Site: right hand; ph 11:32 Follow up: Urine output 275 ml; Response: No adverse reaction ph Output: 09:05 Urine: 400ml (Salcedo); Total: 400ml. ph 11:32 Urine: 275ml; Total: 675ml. ph Outcome: 08:48 Decision to Hospitalize by Provider. snw 11:34 Admitted to Tele accompanied by tech, via stretcher, room 219, with oxygen, with chart, ph Report called to Brenda ARMSTRONG 11:34 Condition: stable 11:34 Instructed on the need for admit. 11:53 Patient left the ED. ph Signatures: Dispatcher [employer] EDMS Noris Bird RN RN aa1 Josette Parks, PIPE THREADING MACHINE OPERATOR-C PIPE THREADING MACHINE OPERATOR-Csnw Bela Sidhu Shelby, RN RN ss Venessa Fischer, fire supervisor EKG Tat1 Priya Simmons RN RN ph Roque, Raymond RN RN rr5 Marlee Granado RN RN ca1 Kamaljit Hooks RN la1 Corrections: (The following items were deleted from the chart) 07:07 06:30 Inserted saline lock: 20 gauge in left antecubital area, using aseptic technique. rr5 Blood collected. rr5
[2018-08-23] MEDS ORDERED: FUROSEMIDE 20 MG/ 2ML VIAL ONE (09:08)
[2018-08-23 09:51] LABS: Potassium 5.1 mmol/L (3.5-5.1)
[2018-08-23] MEDS ORDERED: ONDANSETRON 4 MG/2 ML VIAL IV PRN (11:40)
[2018-08-23 13:32] LABS: Urine Blood TRACE (NEG); Urine Glucose NEGATIVE (NEG); Urine Protein NEGATIVE (NEG); Urine Specific Gravity 1.015 (1.005-1.030); Urine pH 7.5 (5.0-7.0)
[2018-08-23] MEDS: GABAPENTIN 100 MG CAP PO SCH ×2 (14:50→21:19)
[2018-08-23] MEDS: ACETAMINOPHEN 500 MG TAB PO PRN ×2 (16:00→21:32)
--- NOTE | 2018-08-23 19:18 | P.HP ---
Certification for Inpatient Patient admitted to: Observation With expected LOS: <2 Midnights Patient will require the following post-hospital care: None Practitioner: I am a practitioner with admitting privileges, knowledge of patient current condition, hospital course, and medical plan of care. Services: Services provided to patient in accordance with Admission requirements found in Title 42 Section 412.3 of the Code of Federal Regulations Patient History Date of Service: 08/24/18 History of Present Illness: This is a 83-year-old female with significant past medical history of diabetes, hypertension, atrial fibrillation, congestive heart failure who presented to the ED complaining of abdominal pain and shortness of breath. Patient stated that she has been having this abdominal pain on her left lower quadrant that has been bothering her for quite some time. Patient had multiple hospital visits for the similar abdominal pain. Patient denies having any nausea vomiting or any other associated symptoms with the abdominal pain. States that she has been having some leg cramping is along with increase in the edema on the bilateral lower extremity as well. Patient was recently admitted to the hospital for similar complaints. Extensive workup was done at that time and patient was then discharged home under stable condition after which was given IV Lasix. In the ER patient was found to have hyperkalemia along with volume overload consistent with anasarca and thus was admitted for further treatment to the hospital. Allergies amitriptyline Allergy (Verified 05/02/18 22:33) Unknown rosiglitazone maleate [From Avandia] Allergy (Verified 05/02/18 22:33) Anaphylaxis sitagliptin phosphate [From Januvia] Allergy (Verified 05/02/18 22:33) Nausea/Vomiting propafenone HCl [From Rythmol] Adverse Reaction (Verified 05/02/18 22:33) Shortness of breath Tape Allergy (Uncoded 05/02/18 22:33) Itching/Hives/Rash Home Medications: ALPRAZolam [Alprazolam] 1 tab PO BEDTIME 08/23/18 Apixaban [Eliquis] 1 tab PO BID 08/23/18 Atorvastatin Calcium [Lipitor] 1 tab PO BEDTIME 08/23/18 Carvedilol 1 tab PO BID 08/23/18 Furosemide 1 tab PO DAILY 08/23/18 Gabapentin 1 cap PO TID 08/23/18 Lansoprazole 1 cap PO DAILY 08/23/18 Sertraline HCl 1 tab PO DAILY 08/23/18 - Past Medical/Surgical History Has patient received pneumonia vaccine in the past: Yes Diabetic: Yes -: DVT in the 1970s from controll. was in thigh -: DM -: HTN -: Atrial fibrillation -: Congestive heart failure -: hyperlipidemia -: Kidney disease -: pneumonia -: depression/anxiety -: Pacemaker -: Cataract sx -: R. leg fracture -: left hip surgery - Family History Mother -: Cancer Notes: cervical cancer Father -: Heart disease, Diabetes - Social History Smoking Status: Never smoker Alcohol use: No CD- Drugs: No Caffeine use: Yes Place of Residence: Home Review of Systems 10-point ROS is otherwise unremarkable Physical Examination - Vital Signs Temperature: 97.2 F Blood Pressure: 126/59 Pulse: 90 Respirations: 18 Pulse Ox (%): 95 - Physical Exam General: Alert, Mild distress HEENT: Atraumatic, PERRLA, Mucous membr. moist/pink, EOMI, Sclerae nonicteric Neck: Supple, 2+ carotid pulse no bruit, No LAD, Without JVD or thyroid abnormality Respiratory: Normal air movement, Crackles/rales, Expiratory wheezes, Inspiratory wheezes Cardiovascular: Regular rate/rhythm, Normal S1 S2, Edema Gastrointestinal: Normal bowel sounds, No tenderness, Tenderness (LLQ) Musculoskeletal: No tenderness Integumentary: No rashes Neurological: Normal speech, Normal strength at 5/5 x4 extr Lymphatics: No axilla or inguinal lymphadenopathy - Studies Laboratory Data (last 24 hrs) 08/23/18 06:30: Creatinine 1.84 H 08/23/18 06:30: WBC 8.1, Hgb 11.1 L, Hct 34.7 L, Plt Count 183 08/23/18 06:30: Sodium 134 L, Potassium 6.5 H*, BUN 38 H, Creatinine 1.81 H, Glucose 231 H, Total Bilirubin 1.0, AST 11 L, ALT 11 L, Alkaline Phosphatase 157 H, Lipase 41 L Assessment and Plan - Problems (Diagnosis) (1) Hyperkalemia Current Visit: Yes Status: Acute Plan: Hyperkalemia most likely secondary to volume overload. No EKG changes noted -IV Lasix at this time -patient was given Lasix, insulin, calcium gluconate in the ER. -repeat potassium within normal limits -will continue to monitor closely (2) Abdominal pain Current Visit: Yes Status: Chronic Plan: Abdominal pain most likely secondary to anasarca -IV Lasix at this time -abdominal CT negative for any acute abnormality -will continue to monitor closely. -encourage patient to ambulate at this time Qualifiers: Abdominal location: generalized Qualified Code(s): R10.84 - Generalized abdominal pain (3) Anasarca Onset Date: 05/22/18 Current Visit: No Status: Acute Plan: Anasarca most likely secondary to congestive heart failure versus CKD -IV Lasix at this time (4) Hypervolemia Onset Date: 05/22/18 Current Visit: No Status: Acute Plan: Hyperkalemia most likely secondary to CHF versus CKD -IV Lasix at this time -no IV fluids at this time -hypovolemia with pleural effusion along with pulmonary edema as well -1 L fluid restriction and educated extensively on diet compliance Qualifiers: Hypervolemia type: other Qualified Code(s): E87.79 - Other fluid overload (5) CKD (chronic kidney disease) Onset Date: 04/29/15 Current Visit: No Status: Chronic Plan: Acute on chronic kidney disease most likely secondary to hypervolemia -IV Lasix at this time -nephrology has been consulted. Awaiting recommendations at this time Qualifiers: Chronic kidney disease stage: stage 3 (moderate) Qualified Code(s): N18.3 - Chronic kidney disease, stage 3 (moderate) (6) Atrial fibrillation Onset Date: 06/02/17 Current Visit: No Status: Chronic Qualifiers: Atrial fibrillation type: paroxysmal Qualified Code(s): I48.0 - Paroxysmal atrial fibrillation (7) CHF (congestive heart failure) Onset Date: 01/03/15 Current Visit: No Status: Chronic Qualifiers: Heart failure type: systolic Heart failure chronicity: acute on chronic Qualified Code(s): I50.23 - Acute on chronic systolic (congestive) heart failure (8) Depression with anxiety Onset Date: 05/08/18 Current Visit: No Status: Chronic (9) GERD (gastroesophageal reflux disease) Onset Date: 06/02/17 Current Visit: No Status: Chronic Qualifiers: Esophagitis presence: without esophagitis Qualified Code(s): K21.9 - Gastro -esophageal reflux disease without esophagitis (10) Hypertension Onset Date: 06/02/17 Current Visit: No Status: Chronic Qualifiers: Hypertension type: essential hypertension (11) Type 2 diabetes mellitus Onset Date: 06/02/17 Current Visit: No Status: Chronic Qualifiers: Diabetes mellitus longterm insulin use: with longterm use Diabetes mellitus complication status: without complication Qualified Code(s): E11.9 - Type 2 diabetes mellitus without complications; Z79.4 - FDC (current) use of insulin Discharge Plan: Home Plan to discharge in: 48 Hours - Advance Directives Does patient have a Living Will: No Does patient have a Durable POA for Healthcare: No - Code Status/Comfort Care Code Status Assessed: Yes Critical Care: No
[2018-08-23] MEDS: APIXABAN 5 MG TABLET PO SCH (21:19)
[2018-08-23] MEDS: CARVEDILOL 3.125 MG TAB PO SCH (21:19)
[2018-08-23] MEDS: ATORVASTATIN 40 MG TAB PO SCH (21:19)
[2018-08-23] MEDS: ALPRAZOLAM 0.5 MG TABLET PO SCH (21:33)
[2018-08-24] MEDS: ACETAMINOPHEN 500 MG TAB PO PRN ×3 (05:42→21:40)
[2018-08-24 06:05] LABS: Absolute Monocytes 0.5 K/uL (0.1-1.3); Absolute Neutrophil 2.5 K/uL (1.8-8.0); Basophils % 0.8 % (0-1.3); Eosinophils % 1.4 % (0-4.4); Hematocrit 32.5 % (36.0-45.0); MPV 8.5 fL (7.6-11.3); Monocytes % 12.7 % (3.3-12.3); RBC Red Blood Cell Count 4.03 M/uL (3.86-4.86)
[2018-08-24 06:21] LABS: Albumin 2.5 g/dL (3.4-5.0); Magnesium 2.8 mg/dL (1.8-2.4); Phosphorus 3.7 mg/dL (2.5-4.9); Protein, Total 5.9 g/dL (6.4-8.2)
[2018-08-24 07:18] LABS: Potassium 5.6 mmol/L (3.5-5.1)
[2018-08-24] MEDS ORDERED: ALPRAZOLAM 0.5 MG TABLET PO SCH (09:00)
[2018-08-24] MEDS ORDERED: FUROSEMIDE 40 MG TABLET PO SCH (09:00)
[2018-08-24] MEDS ORDERED: HOME MED 1 EA UNK (Furosemide [Furosemide] 1 TAB) PO SCH (09:00)
[2018-08-24] MEDS ORDERED: LANSOPRAZOLE PO SCH (09:00)
[2018-08-24] MEDS: PANTOPRAZOLE 40MG TABLET PO SCH (09:21)
[2018-08-24] MEDS: SERTRALINE HCL 50 MG TAB PO SCH (09:21)
[2018-08-24] MEDS: GABAPENTIN 100 MG CAP PO SCH ×3 (09:21→21:41)
[2018-08-24] MEDS: CARVEDILOL 3.125 MG TAB PO SCH ×2 (09:21→21:41)
[2018-08-24] MEDS: APIXABAN 5 MG TABLET PO SCH ×2 (09:22→21:40)
[2018-08-24] MEDS ORDERED: FUROSEMIDE 40 MG/4 ML VIAL IV ONE (11:45)
[2018-08-24] MEDS ORDERED: GLUCAGON 1 MG/VIAL IM PRN (11:46)
[2018-08-24] MEDS ORDERED: D50W 25 GM/50 ML SYRINGE IV PRN (11:46)
[2018-08-24 14:46] LABS: Potassium 5.8 mmol/L (3.5-5.1)
[2018-08-24] MEDS ORDERED: SOD POLYSTYREN SUL 15 GM/60 ML UCUP PO ONE (15:46)
[2018-08-24] MEDS: INSULIN -REGULAR HUMAN 50 UNIT/0.5 ML ML SQ SCH ×2 (17:32→21:42)
--- NOTE | 2018-08-24 18:33 | P.PN ---
Subjective Date of Service: 08/24/18 Patient seen and examined at bedside with RN. Chart reviewed. Currently complaining of having some leg cramps at this time. Currently potassium is elevated with no EKG changes noted. Review of Systems 10-point ROS is otherwise unremarkable Physical Examination - Vital Signs Temperature: 97.2 F Blood Pressure: 126/59 Pulse: 90 Respirations: 18 Pulse Ox (%): 95 - Physical Exam General: Alert, In no apparent distress, Obese HEENT: Atraumatic, PERRLA, EOMI Neck: Supple, JVD not distended Respiratory: Normal air movement, Crackles/rales Cardiovascular: Regular rate/rhythm, Normal S1 S2 Gastrointestinal: Normal bowel sounds, No tenderness Musculoskeletal: No tenderness Integumentary: No rashes Neurological: Normal speech, Normal tone, Normal affect Lymphatics: No axilla or inguinal lymphadenopathy - Studies Medications List Reviewed: Yes Assessment And Plan - Current Problems (Diagnosis) (1) Hyperkalemia Current Visit: Yes Status: Acute Plan: Hyperkalemia most likely secondary to volume overload. No EKG changes noted -potassium elevated today. Will give Kayexalate at this time. -continue with IV Lasix at this time as well. Patient placed on a moderate insulin sliding scale as well. -nephrology is been consulted. Awaiting recommendations at this time. (2) Abdominal pain Current Visit: Yes Status: Chronic Plan: Abdominal pain most likely secondary to anasarca -IV Lasix at this time -abdominal CT negative for any acute abnormality -encourage patient to ambulate at this time Qualifiers: Abdominal location: generalized Qualified Code(s): R10.84 - Generalized abdominal pain (3) Anasarca Onset Date: 05/22/18 Current Visit: No Status: Acute Plan: Anasarca most likely secondary to congestive heart failure versus CKD -IV Lasix at this time (4) Hypervolemia Onset Date: 05/22/18 Current Visit: No Status: Acute Plan: Hyperkalemia most likely secondary to CHF versus CKD -IV Lasix at this time -no IV fluids at this time -hypovolemia with pleural effusion along with pulmonary edema as well -1 L fluid restriction and educated extensively on diet compliance Qualifiers: Hypervolemia type: other Qualified Code(s): E87.79 - Other fluid overload (5) CKD (chronic kidney disease) Onset Date: 04/29/15 Current Visit: No Status: Chronic Plan: Acute on chronic kidney disease most likely secondary to hypervolemia -IV Lasix at this time -nephrology has been consulted. Awaiting recommendations at this time Qualifiers: Chronic kidney disease stage: stage 3 (moderate) Qualified Code(s): N18.3 - Chronic kidney disease, stage 3 (moderate) (6) Atrial fibrillation Onset Date: 06/02/17 Current Visit: No Status: Chronic Qualifiers: Atrial fibrillation type: paroxysmal Qualified Code(s): I48.0 - Paroxysmal atrial fibrillation (7) CHF (congestive heart failure) Onset Date: 01/03/15 Current Visit: No Status: Chronic Qualifiers: Heart failure type: systolic Heart failure chronicity: acute on chronic Qualified Code(s): I50.23 - Acute on chronic systolic (congestive) heart failure (8) Depression with anxiety Onset Date: 05/08/18 Current Visit: No Status: Chronic (9) GERD (gastroesophageal reflux disease) Onset Date: 06/02/17 Current Visit: No Status: Chronic Qualifiers: Esophagitis presence: without esophagitis Qualified Code(s): K21.9 - Gastro -esophageal reflux disease without esophagitis (10) Hypertension Onset Date: 06/02/17 Current Visit: No Status: Chronic Qualifiers: Hypertension type: essential hypertension (11) Type 2 diabetes mellitus Onset Date: 06/02/17 Current Visit: No Status: Chronic Qualifiers: Diabetes mellitus skilled nursing insulin use: with skilled nursing use Diabetes mellitus complication status: without complication Qualified Code(s): E11.9 - Type 2 diabetes mellitus without complications; Z79.4 - technician terminal and repeater (current) use of insulin Discharge Plan: Home Plan to discharge in: 48 Hours - Code Status/Comfort Care Code Status Assessed: Yes Critical Care: No
[2018-08-24 19:28] LABS: Potassium 5.2 mmol/L (3.5-5.1)
[2018-08-24] MEDS: ATORVASTATIN 40 MG TAB PO SCH (21:41)
[2018-08-24] MEDS: ALPRAZOLAM 0.5 MG TABLET PO SCH (21:53)
[2018-08-25 05:47] LABS: Absolute Lymphocytes (CBC) 0.9 K/uL (0.7-4.9); Absolute Monocytes 0.6 K/uL (0.1-1.3); Absolute Neutrophil 3.4 K/uL (1.8-8.0); Basophils % 0.7 % (0-1.3); Eosinophils % 1.1 % (0-4.4); Hematocrit 34.9 % (36.0-45.0); MPV 8.3 fL (7.6-11.3); Monocytes % 12.6 % (3.3-12.3); RBC Red Blood Cell Count 4.33 M/uL (3.86-4.86)
[2018-08-25 05:51] LABS: Albumin 2.8 g/dL (3.4-5.0); Bilirubin Total 0.9 mg/dL (0.2-1.0); Magnesium 2.8 mg/dL (1.8-2.4); Phosphorus 4.6 mg/dL (2.5-4.9); Potassium 4.8 mmol/L (3.5-5.1); Protein, Total 6.5 g/dL (6.4-8.2)
[2018-08-25] MEDS: INSULIN -REGULAR HUMAN 50 UNIT/0.5 ML ML SQ SCH ×4 (07:30→21:18)
[2018-08-25] MEDS: PANTOPRAZOLE 40MG TABLET PO SCH (09:08)
[2018-08-25] MEDS: GABAPENTIN 100 MG CAP PO SCH ×3 (09:08→21:21)
[2018-08-25] MEDS: SERTRALINE HCL 50 MG TAB PO SCH (09:08)
[2018-08-25] MEDS: CARVEDILOL 3.125 MG TAB PO SCH ×2 (09:08→21:17)
[2018-08-25] MEDS: APIXABAN 5 MG TABLET PO SCH ×2 (09:08→21:17)
[2018-08-25] MEDS: FUROSEMIDE 40 MG/4 ML VIAL IV SCH ×2 (09:09→17:27)
--- NOTE | 2018-08-25 09:09 | RAD REPORT ---
EXAM DESCRIPTION: Yehuda Single View08/25/2018 6:31 am CLINICAL HISTORY: Chest pain COMPARISON: April 2018 FINDINGS: 5 centimeter triangular opacity is without significant change from prior exam. Mild bilateral interstitial lung opacities. Heart is moderately enlarged. Pacemaker leads are in place IMPRESSION: Mild bilateral interstitial lung opacities may represent mild interstitial pulmonary tray ma Triangular right lung opacity stable from April 2018
--- NOTE | 2018-08-25 09:49 | RAD REPORT ---
EXAM DESCRIPTION: US - Renal Ultrasound-Complete - 08/25/2018 8:44 am CLINICAL HISTORY: . Chronic renal disease. Left renal mass COMPARISON: August 23 CAT scan FINDINGS: The right kidney measures 10 cm with an increased echotexture. The left kidney measures cm with an increased echotexture. 3.4 centimeter cyst extends off of the low er pole Renal cortical thinning. 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 A small amount of ascites IMPRESSION: 3.4 centimeter left renal cyst Increased renal echotexture consistent with parenchymal disease
--- NOTE | 2018-08-25 11:23 | P.PN ---
Subjective Date of Service: 08/25/18 Patient seen and examined at bedside with RN. Chart reviewed. Case discussed with nephrology. No complaints to offer otherwise. Doing well overall. Review of Systems 10-point ROS is otherwise unremarkable Physical Examination - Vital Signs Temperature: 97.0 F Blood Pressure: 146/69 Pulse: 70 Respirations: 18 Pulse Ox (%): 93 - Physical Exam General: Alert, Mild distress, Obese HEENT: Atraumatic, PERRLA, EOMI Neck: Supple, JVD not distended Respiratory: Normal air movement, Expiratory wheezes, Inspiratory wheezes Cardiovascular: Regular rate/rhythm, Normal S1 S2 Gastrointestinal: Normal bowel sounds, No tenderness, Ascites Musculoskeletal: No tenderness, Swelling Integumentary: No rashes Neurological: Normal speech, Normal tone, Normal affect Lymphatics: No axilla or inguinal lymphadenopathy - Studies Laboratory Data (last 24 hrs) 08/25/18 05:09: Sodium 139, Potassium 4.8, BUN 41 H, Creatinine 1.87 H, Glucose 115 H, Phosphorus 4.6, Magnesium 2.8 H, Total Bilirubin 0.9, AST 14 L, ALT 9 L, Alkaline Phosphatase 137 H 08/25/18 05:09: WBC 5.0 D, Hgb 11.0 L, Hct 34.9 L, Plt Count 173 08/24/18 : Sodium Cancelled, Potassium Cancelled, BUN Cancelled, Creatinine Cancelled, Glucose Cancelled 08/24/18 18:00: Sodium 135 L, Potassium 5.2 H, BUN 42 H, Creatinine 2.01 H, Glucose 298 H 08/24/18 13:50: Sodium 133 L, Potassium 5.8 H*, BUN 40 H, Creatinine 1.95 H, Glucose 302 H Microbiology Data (last 24 hrs): 08/23/18 06:45 Catheterized Urine [place] Count - Final 08/23/18 06:45 Catheterized Urine - Final Medications List Reviewed: Yes Assessment And Plan - Current Problems (Diagnosis) (1) Hyperkalemia Current Visit: Yes Status: Acute Plan: Hyperkalemia most likely secondary to volume overload. No EKG changes noted. Improved today -potassium within normal limits today. Will continue to monitor -continue with IV Lasix at this time as well. -Patient placed on a moderate insulin sliding scale as well. -nephrology consulted. Awaiting recommendations at this time. (2) Abdominal pain Current Visit: Yes Status: Chronic Plan: Abdominal pain most likely secondary to anasarca. Improved today -continue with IV Lasix -abdominal CT negative for any acute abnormality -encourage patient to ambulate at this time Qualifiers: Abdominal location: generalized Qualified Code(s): R10.84 - Generalized abdominal pain (3) Anasarca Onset Date: 05/22/18 Current Visit: No Status: Acute Plan: Anasarca most likely secondary to congestive heart failure versus CKD. -continue with IV Lasix at this time (4) Hypervolemia Onset Date: 05/22/18 Current Visit: No Status: Acute Plan: Hyperkalemia most likely secondary to CHF versus CKD -continue with IV Lasix at this time -nephrology has been consulted. Awaiting recommendations at this time -will follow up with nephrology regarding initiation of dialysis versus increasing Lasix dosage at home. -currently peripheral edema along with pleural effusion improving. Qualifiers: Hypervolemia type: other Qualified Code(s): E87.79 - Other fluid overload (5) CKD (chronic kidney disease) Onset Date: 04/29/15 Current Visit: No Status: Chronic Plan: Acute on chronic kidney disease most likely secondary to hypervolemia -IV Lasix at this time -renal ultrasound negative for any acute disease however positive for chronic parenchymal disease -nephrology consulted. Awaiting recommendations at this time Qualifiers: Chronic kidney disease stage: stage 3 (moderate) Qualified Code(s): N18.3 - Chronic kidney disease, stage 3 (moderate) (6) Atrial fibrillation Onset Date: 06/02/17 Current Visit: No Status: Chronic Qualifiers: Atrial fibrillation type: paroxysmal Qualified Code(s): I48.0 - Paroxysmal atrial fibrillation (7) CHF (congestive heart failure) Onset Date: 01/03/15 Current Visit: No Status: Chronic Qualifiers: Heart failure type: systolic Heart failure chronicity: acute on chronic Qualified Code(s): I50.23 - Acute on chronic systolic (congestive) heart failure (8) Depression with anxiety Onset Date: 05/08/18 Current Visit: No Status: Chronic (9) GERD (gastroesophageal reflux disease) Onset Date: 06/02/17 Current Visit: No Status: Chronic Qualifiers: Esophagitis presence: without esophagitis Qualified Code(s): K21.9 - Gastro -esophageal reflux disease without esophagitis (10) Hypertension Onset Date: 06/02/17 Current Visit: No Status: Chronic Qualifiers: Hypertension type: essential hypertension (11) Type 2 diabetes mellitus Onset Date: 06/02/17 Current Visit: No Status: Chronic Qualifiers: 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
--- NOTE | 2018-08-25 14:20 | P.CNS ---
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 no chest pain, palpitation, nausea or vomiting in ER K was 6.5, Cr 1.8 Allergies amitriptyline Allergy (Verified 05/02/18 22:33) Unknown rosiglitazone maleate [From Avandia] Allergy (Verified 05/02/18 22:33) Anaphylaxis sitagliptin phosphate [From Januvia] Allergy (Verified 05/02/18 22:33) Nausea/Vomiting propafenone HCl [From Rythmol] Adverse Reaction (Verified 05/02/18 22:33) Shortness of breath Tape Allergy (Uncoded 05/02/18 22:33) Itching/Hives/Rash Home Medications: ALPRAZolam [Alprazolam] 1 tab PO BEDTIME 08/23/18 Apixaban [Eliquis] 1 tab PO BID 08/23/18 Atorvastatin Calcium [Lipitor] 1 tab PO BEDTIME 08/23/18 Carvedilol 1 tab PO BID 08/23/18 Furosemide 1 tab PO DAILY 08/23/18 Gabapentin 1 cap PO TID 08/23/18 Lansoprazole 1 cap PO DAILY 08/23/18 Sertraline HCl 1 tab PO DAILY 08/23/18 - Past Medical/Surgical History Diabetic: Yes -: DVT in the 1970s from controll. was in thigh -: DM -: HTN -: Atrial fibrillation -: Congestive heart failure -: hyperlipidemia -: Kidney disease -: pneumonia -: depression/anxiety -: Pacemaker -: Cataract sx -: R. leg fracture -: left hip surgery - Family History Mother Medical History: Cancer Notes: cervical cancer Father Medical History: Heart disease, Diabetes - Social History Smoking Status: Unknown if ever smoked Alcohol use: No CD- Drugs: No Caffeine use: Yes Place of Residence: Home Physical Examination Temp Pulse Resp BP Pulse Ox 97.0 F 70 18 146/69 H 93 08/25/18 11:23 08/25/18 11:23 08/25/18 11:23 08/25/18 11:23 08/25/18 11:23 General: In no apparent distress, Oriented x3 HEENT: Atraumatic Neck: Supple, Without JVD or thyroid abnormality Respiratory: Clear to auscultation bilaterally, Normal air movement Cardiovascular: No edema, Regular rate/rhythm, Normal S1 S2 Gastrointestinal: Soft and benign, Distended Integumentary: No rashes Laboratory Data (last 24 hrs) 08/25/18 05:09: Sodium 139, Potassium 4.8, BUN 41 H, Creatinine 1.87 H, Glucose 115 H, Phosphorus 4.6, Magnesium 2.8 H, Total Bilirubin 0.9, AST 14 L, ALT 9 L, Alkaline Phosphatase 137 H 08/25/18 05:09: WBC 5.0 D, Hgb 11.0 L, Hct 34.9 L, Plt Count 173 08/24/18 18:00: Sodium 135 L, Potassium 5.2 H, BUN 42 H, Creatinine 2.01 H, Glucose 298 H 08/24/18 13:50: Sodium 133 L, Potassium 5.8 H*, BUN 40 H, Creatinine 1.95 H, Glucose 302 H - Problems (1) Hyperkalemia Current Visit: Yes Status: Acute (2) Hypervolemia Onset Date: 05/22/18 Current Visit: No Status: Acute Qualifiers: Hypervolemia type: other Qualified Code(s): E87.79 - Other fluid overload (3) Pleural effusion Onset Date: 05/22/18 Current Visit: No Status: Acute (4) CKD (chronic kidney disease) Onset Date: 04/29/15 Current Visit: No Status: Chronic Qualifiers: Chronic kidney disease stage: stage 3 (moderate) Qualified Code(s): N18.3 - Chronic kidney disease, stage 3 (moderate) Conclusions/Impression: This is a 83-year-old female with significant past medical history of diabetes, hypertension, atrial fibrillation, congestive heart failure who presented to the ED complaining of abdominal pain and shortness of breath. Patient stated that she has been having this abdominal pain on her left lower quadrant that has been bothering her for quite some time. Patient had multiple hospital visits for the similar abdominal pain. Patient denies having any nausea vomiting or any other associated symptoms with the abdominal pain. States that she has been having some leg cramping is along with increase in the edema on the bilateral lower extremity as well. Patient was recently admitted to the hospital for similar complaints. Extensive workup was done at that time and patient was then discharged home under stable condition after which was given IV Lasix. Abd CT: pleural , pericardial effusion and ascitis \ CKD IV Cr at baseline Due to DM US: echogenic kidneys will change diet to renal renal dose meds hyperkalemia liekly due to CKD and RTA 4 Mg slightly elevated TSH 1.9 low K diet kaeyxalate 15mg po Qother day as an OP abdominal distension Abd CT : no acute pathology need GI f/u lt renal cyst stabel Lt adrenal myelolipoma Anasarca llow alb UA: no prot will order UPC elevated ALP , will order GGT DM as per primsilverioy
[2018-08-25] MEDS ORDERED: SOD POLYSTYREN SUL 15 GM/60 ML UCUP PO ONE (20:00)
[2018-08-25] MEDS: ALPRAZOLAM 0.5 MG TABLET PO SCH (21:17)
[2018-08-25] MEDS: ATORVASTATIN 40 MG TAB PO SCH (21:17)
[2018-08-26 06:18] LABS: Absolute Monocytes 0.8 K/uL (0.1-1.3); Absolute Neutrophil 3.3 K/uL (1.8-8.0); Basophils % 0.9 % (0-1.3); Eosinophils % 1.2 % (0-4.4); Hematocrit 33.3 % (36.0-45.0); Lymphocytes % 18.7 % (15.3-44.8); Monocytes % 15.4 % (3.3-12.3); RBC Red Blood Cell Count 4.08 M/uL (3.86-4.86)
[2018-08-26 06:42] LABS: Albumin 2.7 g/dL (3.4-5.0); Bilirubin Total 0.9 mg/dL (0.2-1.0); Magnesium 2.4 mg/dL (1.8-2.4); Potassium 4.5 mmol/L (3.5-5.1); Protein, Total 6.5 g/dL (6.4-8.2)
[2018-08-26] MEDS: INSULIN -REGULAR HUMAN 50 UNIT/0.5 ML ML SQ SCH ×4 (07:30→21:18)
[2018-08-26 07:57] LABS: Anisocytosis 1+; Blood Morphology Comment NOTED (NOT SEEN); Platelet Estimate ADEQ
[2018-08-26] MEDS: PANTOPRAZOLE 40MG TABLET PO SCH (08:48)
[2018-08-26] MEDS: CARVEDILOL 3.125 MG TAB PO SCH ×2 (08:48→21:17)
[2018-08-26] MEDS: FUROSEMIDE 40 MG/4 ML VIAL IV SCH ×2 (08:48→17:06)
[2018-08-26] MEDS: APIXABAN 5 MG TABLET PO SCH (08:49)
[2018-08-26] MEDS: GABAPENTIN 100 MG CAP PO SCH ×3 (08:49→21:17)
[2018-08-26] MEDS: SERTRALINE HCL 50 MG TAB PO SCH (08:49)
--- NOTE | 2018-08-26 14:21 | P.PN ---
Subjective Date of Service: 08/26/18 Chief Complaint: abdominal distension Subjective: Improving No new complaints K 4.5 Cr stable high ALP: F/U GGT , PTh 277 will check CK and Cortsiol level Physical Examination - Vital Signs Temperature: 97.6 F Blood Pressure: 127/59 Pulse: 70 Respirations: 18 Pulse Ox (%): 100 - Physical Exam General: In no apparent distress, Oriented x3 HEENT: Atraumatic Neck: Supple, Without JVD or thyroid abnormality Respiratory: Clear to auscultation bilaterally, Normal air movement Cardiovascular: No edema, Regular rate/rhythm, Normal S1 S2, No rubs, No murmurs Gastrointestinal: Soft and benign, Distended - Studies Microbiology Data (last 24 hrs): 08/23/18 06:45 Catheterized Urine [place] Count - Final 08/23/18 06:45 Catheterized Urine - Final Medications List Reviewed: Yes Assessment And Plan - Current Problems (Diagnosis) (1) Hyperkalemia Current Visit: Yes Status: Acute (2) Hypervolemia Onset Date: 05/22/18 Current Visit: No Status: Acute Qualifiers: Hypervolemia type: other Qualified Code(s): E87.79 - Other fluid overload (3) Pleural effusion Onset Date: 05/22/18 Current Visit: No Status: Acute (4) CKD (chronic kidney disease) Onset Date: 04/29/15 Current Visit: No Status: Chronic Qualifiers: Chronic kidney disease stage: stage 3 (moderate) Qualified Code(s): N18.3 - Chronic kidney disease, stage 3 (moderate) - Plan This is a 83-year-old female with significant past medical history of diabetes, hypertension, atrial fibrillation, congestive heart failure who presented to the ED complaining of abdominal pain and shortness of breath. Patient stated that she has been having this abdominal pain on her left lower quadrant that has been bothering her for quite some time. Patient had multiple hospital visits for the similar abdominal pain. Patient denies having any nausea vomiting or any other associated symptoms with the abdominal pain. States that she has been having some leg cramping is along with increase in the edema on the bilateral lower extremity as well. Patient was recently admitted to the hospital for similar complaints. Extensive workup was done at that time and patient was then discharged home under stable condition after which was given IV Lasix. 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
--- NOTE | 2018-08-26 17:56 | P.PN ---
Subjective Date of Service: 08/26/18 Chief Complaint: abdominal distension Patient seen and examined at bedside with RN. Chart reviewed. Case discussed with nephrology. No complaints to offer otherwise. Doing well overall. Review of Systems 10-point ROS is otherwise unremarkable Physical Examination - Vital Signs Temperature: 97.6 F Blood Pressure: 109/58 Pulse: 70 Respirations: 18 Pulse Ox (%): 100 - Physical Exam General: Alert, In no apparent distress HEENT: Atraumatic, PERRLA, EOMI Neck: Supple, JVD not distended Respiratory: Clear to auscultation bilaterally, Normal air movement Cardiovascular: Regular rate/rhythm, Normal S1 S2 Gastrointestinal: Normal bowel sounds, No tenderness Musculoskeletal: No tenderness Integumentary: No rashes Neurological: Normal speech, Normal tone, Normal affect Lymphatics: No axilla or inguinal lymphadenopathy - Studies Medications List Reviewed: Yes Assessment And Plan - Current Problems (Diagnosis) (1) Hyperkalemia Current Visit: Yes Status: Acute Plan: Hyperkalemia most likely secondary to volume overload. No EKG changes noted. Improved today -potassium within normal limits today. Will continue to monitor -continue with IV Lasix at this time as well. -Patient placed on a moderate insulin sliding scale as well. -nephrology consulted. Awaiting recommendations at this time. (2) Abdominal pain Current Visit: Yes Status: Chronic Plan: Abdominal pain most likely secondary to anasarca. Improved today -continue with IV Lasix -abdominal CT negative for any acute abnormality -encourage patient to ambulate at this time Qualifiers: Abdominal location: generalized Qualified Code(s): R10.84 - Generalized abdominal pain (3) Anasarca Onset Date: 05/22/18 Current Visit: No Status: Acute Plan: Anasarca most likely secondary to congestive heart failure versus CKD. -continue with IV Lasix at this time (4) Hypervolemia Onset Date: 05/22/18 Current Visit: No Status: Acute Plan: Hyperkalemia most likely secondary to CHF versus CKD -continue with IV Lasix at this time -nephrology has been consulted. Awaiting recommendations at this time -will follow up with nephrology regarding initiation of dialysis versus increasing Lasix dosage at home. -currently peripheral edema along with pleural effusion improving. Qualifiers: Hypervolemia type: other Qualified Code(s): E87.79 - Other fluid overload (5) CKD (chronic kidney disease) Onset Date: 04/29/15 Current Visit: No Status: Chronic Plan: Acute on chronic kidney disease most likely secondary to hypervolemia. BUN and creatinine at baseline today. -IV Lasix at this time -renal ultrasound negative for any acute disease however positive for chronic parenchymal disease -nephrology consulted. Recommendations appreciated at this time Qualifiers: Chronic kidney disease stage: stage 3 (moderate) Qualified Code(s): N18.3 - Chronic kidney disease, stage 3 (moderate) (6) Atrial fibrillation Onset Date: 06/02/17 Current Visit: No Status: Chronic Qualifiers: Atrial fibrillation type: paroxysmal Qualified Code(s): I48.0 - Paroxysmal atrial fibrillation (7) CHF (congestive heart failure) Onset Date: 01/03/15 Current Visit: No Status: Chronic Qualifiers: Heart failure type: systolic Heart failure chronicity: acute on chronic Qualified Code(s): I50.23 - Acute on chronic systolic (congestive) heart failure (8) Depression with anxiety Onset Date: 05/08/18 Current Visit: No Status: Chronic (9) GERD (gastroesophageal reflux disease) Onset Date: 06/02/17 Current Visit: No Status: Chronic Qualifiers: Esophagitis presence: without esophagitis Qualified Code(s): K21.9 - Gastro -esophageal reflux disease without esophagitis (10) Hypertension Onset Date: 06/02/17 Current Visit: No Status: Chronic Qualifiers: Hypertension type: essential hypertension (11) Type 2 diabetes mellitus Onset Date: 06/02/17 Current Visit: No Status: Chronic Qualifiers: 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 Discharge Plan: Home Plan to discharge in: 48 Hours - Code Status/Comfort Care Code Status Assessed: Yes Critical Care: No
[2018-08-26] MEDS: ALPRAZOLAM 0.5 MG TABLET PO SCH (21:17)
[2018-08-26] MEDS: APIXABAN 2.5 MG TABLET PO SCH (21:18)
[2018-08-26] MEDS: ATORVASTATIN 40 MG TAB PO SCH (21:18)
[2018-08-27] MEDS ORDERED: FENTANYL CITR 100 MCG/2 ML ONE (00:19)
[2018-08-27 00:28] LABS: Potassium 4.1 mmol/L (3.5-5.1); Troponin I 0.06 ng/mL (0.0-0.045)
[2018-08-27] MEDS ORDERED: NA CHLORIDE 0.9% 1,000 ML IV SCH (01:00)
[2018-08-27 03:31] LABS: Urine Protein/Creatinine Ratio 0.21 ratio (<0.15)
[2018-08-27] MEDS ORDERED: FENTANYL CITR 100 MCG/2 ML IV PRN (03:40)
[2018-08-27] MEDS ORDERED: LORazepam 2 MG/ML VIAL IV PRN (03:40)
[2018-08-27 05:43] LABS: Magnesium 2.6 mg/dL (1.8-2.4); Potassium 4.2 mmol/L (3.5-5.1)
[2018-08-27 05:51] LABS: Arterial Blood Carboxyhemoglob 2.5 % (0-1.5); Blood Gas Oxyhemoglobin 97.1 % (94-97); Blood O2 Saturation 99.9 % (92-98.5)
[2018-08-27 06:17] LABS: Phosphorus 4.7 mg/dL (2.5-4.9)
[2018-08-27] MEDS: PANTOPRAZOLE 40MG TABLET PO SCH (07:30)
[2018-08-27] MEDS: INSULIN -REGULAR HUMAN 50 UNIT/0.5 ML ML SQ SCH ×4 (07:30→23:43)
--- NOTE | 2018-08-27 09:51 | P.CNS ---
Date of Consult: 08/27/18 Reason for Consult: Respiratory failure Chief Complaint: Respiratory failure History of Present Illness: Patient is 83 years of age with multiple medical problems admitted with abdominal pain and shortness of breath apparently she became pulseless bradycardic intubated transferred here to the ICU is currently alert cooperative responsive shallow respirations Chest x-ray very abnormal there is a progression of for right hilar infiltrate Allergies amitriptyline Allergy (Verified 05/02/18 22:33) Unknown rosiglitazone maleate [From Avandia] Allergy (Verified 05/02/18 22:33) Anaphylaxis sitagliptin phosphate [From Januvia] Allergy (Verified 05/02/18 22:33) Nausea/Vomiting propafenone HCl [From Rythmol] Adverse Reaction (Verified 05/02/18 22:33) Shortness of breath Tape Allergy (Uncoded 05/02/18 22:33) Itching/Hives/Rash Home Medications: ALPRAZolam [Alprazolam] 1 tab PO BEDTIME 08/23/18 Apixaban [Eliquis] 1 tab PO BID 08/23/18 Atorvastatin Calcium [Lipitor] 1 tab PO BEDTIME 08/23/18 Carvedilol 1 tab PO BID 08/23/18 Furosemide 1 tab PO DAILY 08/23/18 Gabapentin 1 cap PO TID 08/23/18 Lansoprazole 1 cap PO DAILY 08/23/18 Sertraline HCl 1 tab PO DAILY 08/23/18 - Past Medical/Surgical History Diabetic: Yes -: DVT in the 1970s from controll. was in thigh -: DM -: HTN -: Atrial fibrillation -: Congestive heart failure -: hyperlipidemia -: Kidney disease -: pneumonia -: depression/anxiety -: History of lung cancer treated with radiation on the right side -: Pacemaker -: Cataract sx -: R. leg fracture -: left hip surgery - Family History Mother Medical History: Cancer Notes: cervical cancer Father Medical History: Heart disease, Diabetes - Social History Smoking Status: Unknown if ever smoked Alcohol use: No CD- Drugs: No Caffeine use: Yes Place of Residence: Home Review of Systems is unable to be obtained Physical Examination Temp Pulse Resp BP Pulse Ox 97.2 F 70 14 127/63 95 08/27/18 04:00 08/27/18 08:00 08/27/18 08:00 08/27/18 08:00 08/27/18 08:00 General: Alert, Cooperative Neck: Supple Respiratory: Clear to auscultation bilaterally, Diminished Cardiovascular: No edema, Normal S1 S2 Gastrointestinal: Normal bowel sounds, Non-distended Integumentary: Other (She has an ulcer in the left calf) - Problems (1) Respiratory failure Current Visit: Yes Status: Acute Plan: Patient is 83 years of age was found bradycardic unresponsive pulseless intubated transferred here to the ICU currently she is alert responsive cooperative shallow respirations chronic baseline renal insufficiency history of diabetes congestive heart failure no evidence of sepsis over the chest x- rays very abnormal with his right triangular opacity patient will need a CT scan of the chest patient is congestive heart failure Dc IV fluids possible wean and extubate today Qualifiers: Chronicity: acute (2) Lung cancer Current Visit: Yes Status: Acute Plan: Patient has a very large right-sided hilar mass suspicious of lung cancer according to the patient she was diagnosed and treated in [place] and [place] with radiation will try and obtain records and discussed with daughter regarding further biopsy Qualifiers: Laterality: right
--- NOTE | 2018-08-27 09:52 | P.PN ---
Subjective Date of Service: 08/26/18 Patient had a cardiac arrest. Patient was out of bed and getting ready to take a shower. She became faint and collapse. She was slowly moved down to the floor. The PARTS MANAGER and charge nurse were with her. Lyly garcia was called. Patient was resuscitated. Patient's CT of the head which did not reveal any acute abnormality. Patient started waking not we sedated her with fentanyl and Ativan. However she is more awake and following commands will go ahead and see how she does in a.m. if she is doing well and will go ahead and do a spontaneous breathing trial and we will plan to extubate. Review of Systems is unable to be obtained Physical Examination - Vital Signs Temperature: 97.2 F Blood Pressure: 127/63 Pulse: 70 Respirations: 14 Pulse Ox (%): 95 - Physical Exam General: Other (Intubated and sedated) HEENT: Atraumatic, Normocephalic Respiratory: Diminished Cardiovascular: Regular rate/rhythm, Normal S1 S2, No murmurs Gastrointestinal: Soft and benign, Non-distended Musculoskeletal: No clubbing Neurological: Normal tone, Sensation intact, Cranial nerves 3-12 intact, Abnormal gait, Abnormal speech, Abnormal strength - Studies Medications List Reviewed: Yes Assessment & Plan - Plan Assessment: 1. Cardiac arrest 2. Respiratory failure Plan: 1. Continue mechanical ventilation and sedation as needed 2. Will hold in the morning and allow patient wake up and do a spontaneous breathing trial 3. Monitor electrolytes 4. Physical therapy once patient is extubated 5. Repeat chest x-ray Discharge Plan: Home Plan to discharge in: Greater than 2 days - Advance Directives Does patient have a Living Will: No Does patient have a Durable POA for Healthcare: No - Code Status/Comfort Care Code Status Assessed: Yes Code Status: Full Code Critical Care: Yes Time Spent Managing PTS Care (In Minutes): 60
--- NOTE | 2018-08-27 10:20 | RAD REPORT ---
EXAM DESCRIPTION: CT - Head Brain Wo Cont - 08/27/2018 3:30 am CLINICAL HISTORY: cardiopulmonary arrest Drowsiness COMPARISON: Head Brain Wo Cont dated 04/15/2017; Head Brain Wo Cont dated 12/24/2015 TECHNIQUE: All CT scans are performed using dose optimization technique as appropriate and may inclu de automated exposure control or mA/KV adjustment according to patient size. FINDINGS: No intracranial hemorrhage, hydrocephalus or extra-axial fluid collection.Moderate general ized brain atrophy is present with moderate periventricular and deep white matter chronic microvascul ar ischemic changes.No areas of brain edema or evidence of midline shift. The paranasal sinuses and mastoids are clear. The calvarium is intact. IMPRESSION: No acute intracranial abnormality.
--- NOTE | 2018-08-27 10:21 | RAD REPORT ---
EXAM DESCRIPTION: RAD - Chest Single View - 08/27/2018 12:09 am CLINICAL HISTORY: code 99; chest tube placement Chest pain. COMPARISON: Chest Single View dated 08/25/2018; Abdomen 1 View (KUB) dated 05/19/2018; Chest Single Vie w dated 05/19/2018; Chest Single View dated 05/04/2018 FINDINGS: Portable technique limits examination quality. Tip of the ET tube is above the fareed. Extensive bilateral pulmonary opacities are noted likely repr esenting pneumonia or pulmonary edema. The heart is significantly enlarged. Dual lead pacer device pr esent.
[2018-08-27] MEDS: APIXABAN 2.5 MG TABLET PO SCH ×2 (10:26→21:36)
[2018-08-27] MEDS: SERTRALINE HCL 50 MG TAB PO SCH (10:26)
[2018-08-27] MEDS: FUROSEMIDE 40 MG/4 ML VIAL IV SCH ×2 (10:26→17:03)
[2018-08-27] MEDS: CARVEDILOL 3.125 MG TAB PO SCH ×2 (10:26→21:00)
[2018-08-27] MEDS: GABAPENTIN 100 MG CAP PO SCH ×3 (10:27→21:37)
--- NOTE | 2018-08-27 12:57 | P.PN ---
Subjective Date of Service: 08/27/18 Chief Complaint: Respiratory failure No new complaints K normal Cr stable high ALP: F/U GGT , PTh 277 Pt with was unrepsonsive last night, Cpr for 4 minutes, intubated , now extubated CXR worsening edema/ infiltrate Cont Lasix F/U chest CT UO ~50ml/hr Physical Examination - Vital Signs Temperature: 97.2 F Blood Pressure: 127/70 Pulse: 70 Respirations: 15 Pulse Ox (%): 96 - Physical Exam General: In no apparent distress, Oriented x3 HEENT: Atraumatic Neck: Supple, Without JVD or thyroid abnormality Respiratory: Clear to auscultation bilaterally, Normal air movement Cardiovascular: No edema, Regular rate/rhythm, Normal S1 S2 Gastrointestinal: Soft and benign, Distended - Studies Medications List Reviewed: Yes Assessment And Plan - Current Problems (Diagnosis) (1) Hyperkalemia Current Visit: Yes Status: Acute (2) Hypervolemia Onset Date: 05/22/18 Current Visit: No Status: Acute Qualifiers: Hypervolemia type: other Qualified Code(s): E87.79 - Other fluid overload (3) Pleural effusion Onset Date: 05/22/18 Current Visit: No Status: Acute (4) CKD (chronic kidney disease) Onset Date: 04/29/15 Current Visit: No Status: Chronic Qualifiers: Chronic kidney disease stage: stage 3 (moderate) Qualified Code(s): N18.3 - Chronic kidney disease, stage 3 (moderate) - Plan This is a 83-year-old female with significant past medical history of diabetes, hypertension, atrial fibrillation, congestive heart failure who presented to the ED complaining of abdominal pain and shortness of breath. Patient stated that she has been having this abdominal pain on her left lower quadrant that has been bothering her for quite some time. Patient had multiple hospital visits for the similar abdominal pain. Patient denies having any nausea vomiting or any other associated symptoms with the abdominal pain. States that she has been having some leg cramping is along with increase in the edema on the bilateral lower extremity as well. Patient was recently admitted to the hospital for similar complaints. Extensive workup was done at that time and patient was then discharged home under stable condition after which was given IV Lasix. 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
--- NOTE | 2018-08-27 13:46 | RAD REPORT ---
EXAM DESCRIPTION: CT - Thorax Wo Con CLINICAL HISTORY: Chest pain Abnormal chest x-ray COMPARISON: THORAX WO CONTRAST dated 01/09/2015 FINDINGS: Bilateral pulmonary opacities are noted most compatible with mild pulmonary edema. Scarrin g is present in the right parahilar region with traction bronchiectasis. Mild linear atelectasis also suspected left lung base. Minimal left and small right pleural effusion noted. No pneumothorax. Moderate cardiomegaly is seen with a mild volume of pericardial fluid. Pacer device is in place. Mode rate aortic arch atherosclerosis. No concerning bony finding. Mild ascites noted in the upper abdomen. Splenomegaly is also seen. Low-d ensity left adrenal mass is unchanged since comparative study. All CT scans are performed using dose optimization technique as appropriate and may include automated exposure control or mA/KV adjustment according to patient size. IMPRESSION: Mild to moderate CHF/ volume overload pattern is noted.
--- NOTE | 2018-08-27 13:47 | P.PN ---
Subjective Date of Service: 08/27/18 Chief Complaint: Respiratory failure Patient seen and examined at bedside with RN. Chart reviewed. Case discussed with nephrology. Patient overnight had cardiopulmonary arrest was resuscitated successfully and intubated. Currently in the ICU patient has been extubated doing well overall. On room air saturating well. No complaints to offer at this time as well. Review of Systems 10-point ROS is otherwise unremarkable Physical Examination - Vital Signs Temperature: 97.2 F Blood Pressure: 127/70 Pulse: 70 Respirations: 15 Pulse Ox (%): 96 - Physical Exam General: Alert, In no apparent distress HEENT: Atraumatic, PERRLA, EOMI Neck: Supple, JVD not distended Respiratory: Normal air movement, Crackles/rales, Rhonchi/gurgles Cardiovascular: Regular rate/rhythm, Normal S1 S2 Gastrointestinal: Normal bowel sounds, No tenderness Musculoskeletal: No tenderness Integumentary: No rashes Neurological: Normal speech, Normal tone, Normal affect Lymphatics: No axilla or inguinal lymphadenopathy - Studies Medications List Reviewed: Yes Assessment And Plan - Current Problems (Diagnosis) (1) Cardiopulmonary arrest with successful resuscitation Current Visit: Yes Status: Resolved Plan: Status post cardiopulmonary arrest with successful resuscitation -currently extubated doing well overall. Normal sinus rhythm as well. -will get echocardiogram at this time. -cardiology and pulmonology has been consulted. Appreciated recommendations at this time -most likely patient's cardiopulmonary arrest secondary to syncopal episode and bradycardia -will hold medication that could lower her heart rate. (2) Hyperkalemia Current Visit: Yes Status: Acute Plan: Hyperkalemia most likely secondary to volume overload -currently lab work is pending at this time -on cardiac tele -continue monitor closely. -IV Lasix at this time as well (3) Abdominal pain Current Visit: Yes Status: Chronic Plan: Abdominal pain most likely secondary to anasarca. Improved today -continue with IV Lasix -abdominal CT negative for any acute abnormality -encourage patient to ambulate at this time Qualifiers: Abdominal location: generalized Qualified Code(s): R10.84 - Generalized abdominal pain (4) Hypervolemia Onset Date: 05/22/18 Current Visit: No Status: Acute Plan: Hyperkalemia most likely secondary to CHF versus CKD -continue with IV Lasix at this time -nephrology has been consulted. Recommendations appreciated at this time Qualifiers: Hypervolemia type: other Qualified Code(s): E87.79 - Other fluid overload (5) CKD (chronic kidney disease) Onset Date: 04/29/15 Current Visit: No Status: Chronic Plan: Acute on chronic kidney disease most likely secondary to hypervolemia. -lab work pending at this time -IV Lasix at this time -renal ultrasound negative for any acute disease however positive for chronic parenchymal disease -nephrology consulted. Recommendations appreciated at this time Qualifiers: Chronic kidney disease stage: stage 3 (moderate) Qualified Code(s): N18.3 - Chronic kidney disease, stage 3 (moderate) (6) Atrial fibrillation Onset Date: 06/02/17 Current Visit: No Status: Chronic Qualifiers: Atrial fibrillation type: paroxysmal Qualified Code(s): I48.0 - Paroxysmal atrial fibrillation (7) CHF (congestive heart failure) Onset Date: 01/03/15 Current Visit: No Status: Chronic Qualifiers: Heart failure type: systolic Heart failure chronicity: acute on chronic Qualified Code(s): I50.23 - Acute on chronic systolic (congestive) heart failure (8) Depression with anxiety Onset Date: 05/08/18 Current Visit: No Status: Chronic (9) GERD (gastroesophageal reflux disease) Onset Date: 06/02/17 Current Visit: No Status: Chronic Qualifiers: Esophagitis presence: without esophagitis Qualified Code(s): K21.9 - Gastro -esophageal reflux disease without esophagitis (10) Hypertension Onset Date: 06/02/17 Current Visit: No Status: Chronic Qualifiers: Hypertension type: essential hypertension (11) Type 2 diabetes mellitus Onset Date: 06/02/17 Current Visit: No Status: Chronic Qualifiers: Diabetes mellitus intermediate insulin use: with petroleum terminal plant operator use Diabetes mellitus complication status: without complication Qualified Code(s): E11.9 - Type 2 diabetes mellitus without complications; Z79.4 - terminal gauger (current) use of insulin - Plan Pending clinical improvement at this time. Will monitor closely here in the ICU for next 24 hr Discharge Plan: Home Plan to discharge in: 48 Hours - Code Status/Comfort Care Code Status Assessed: Yes Critical Care: Yes
[2018-08-27 14:36] LABS: Albumin 2.7 g/dL (3.4-5.0); Bilirubin Total 1.1 mg/dL (0.2-1.0); Potassium 3.9 mmol/L (3.5-5.1); Protein, Total 6.5 g/dL (6.4-8.2)
[2018-08-27 14:38] LABS: Magnesium 2.2 mg/dL (1.8-2.4); Phosphorus 4.2 mg/dL (2.5-4.9)
[2018-08-27 14:57] LABS: Absolute Lymphocytes (CBC) 0.6 K/uL (0.7-4.9); Absolute Monocytes 0.9 K/uL (0.1-1.3); Absolute Neutrophil 6.7 K/uL (1.8-8.0); Basophils % 0.4 % (0-1.3); Eosinophils % 0.2 % (0-4.4); Hematocrit 34.9 % (36.0-45.0); Lymphocytes % 7.8 % (15.3-44.8); MPV 8.4 fL (7.6-11.3); Monocytes % 10.4 % (3.3-12.3); RBC Red Blood Cell Count 4.31 M/uL (3.86-4.86)
[2018-08-27 17:01] LABS: Anisocytosis 1+; Blood Morphology Comment NOTED (NOT SEEN); Platelet Estimate ADEQ; Urine White Blood Cell Casts OK
[2018-08-27] MEDS: ALPRAZOLAM 0.5 MG TABLET PO SCH (21:34)
[2018-08-27] MEDS: ATORVASTATIN 40 MG TAB PO SCH (21:35)
[2018-08-28 05:25] LABS: Absolute Lymphocytes (CBC) 0.9 K/uL (0.7-4.9); Absolute Neutrophil 4.4 K/uL (1.8-8.0); Basophils % 1.3 % (0-1.3); Eosinophils % 0.2 % (0-4.4); Hematocrit 32.3 % (36.0-45.0); Lymphocytes % 14.6 % (15.3-44.8); MPV 8.3 fL (7.6-11.3); RBC Red Blood Cell Count 3.97 M/uL (3.86-4.86)
[2018-08-28 05:27] LABS: Monocytes % 15.1 % (3.3-12.3)
[2018-08-28 05:44] LABS: Albumin 2.5 g/dL (3.4-5.0); Bilirubin Total 0.9 mg/dL (0.2-1.0); Magnesium 2.4 mg/dL (1.8-2.4); Phosphorus 4.5 mg/dL (2.5-4.9); Potassium 3.9 mmol/L (3.5-5.1); Protein, Total 6.1 g/dL (6.4-8.2)
[2018-08-28] MEDS: INSULIN -REGULAR HUMAN 50 UNIT/0.5 ML ML SQ SCH ×4 (08:06→23:00)
--- NOTE | 2018-08-28 08:13 | P.PN ---
Subjective Date of Service: 08/28/18 Chief Complaint: Abnormal chest x-ray Subjective: Improving (Patient is doing well extubated yesterday no new complaint) Review of Systems General: Weakness Respiratory: Cough, Shortness of Breath Physical Examination - Vital Signs Temperature: 97 F Blood Pressure: 112/59 Pulse: 70 Respirations: 16 Pulse Ox (%): 100 - Physical Exam General: Alert, Oriented x3 Respiratory: Clear to auscultation bilaterally Cardiovascular: No edema, Regular rate/rhythm - Studies Microbiology Data (last 24 hrs): 08/23/18 06:55 Blood - Blood Aerobic Blood Culture - Final No growth in 5 days. 08/23/18 06:55 Blood - Blood Anaerobic Blood Culture - Final No growth in 5 days. Medications List Reviewed: Yes Assessment & Plan - Problems (Diagnosis) (1) Respiratory failure Current Visit: Yes Status: Resolved Plan: Patient extubated yesterday alert oriented responsive denies any pulmonary complaints labs reviewed renal insufficiency renal function was reduce dose of Lasix Qualifiers: Chronicity: acute (2) Lung cancer Current Visit: Yes Status: Acute Plan: Patient has a very large right-sided hilar mass suspicious of lung cancer according to the patient she was diagnosed and treated in [place] and [place] with radiation will try and obtain records and discussed with daughter regarding further biopsy Qualifiers: Laterality: right
[2018-08-28] MEDS: GABAPENTIN 100 MG CAP PO SCH ×3 (09:35→20:36)
[2018-08-28] MEDS: SERTRALINE HCL 50 MG TAB PO SCH (09:35)
[2018-08-28] MEDS: CARVEDILOL 3.125 MG TAB PO SCH ×2 (09:35→20:36)
[2018-08-28] MEDS: PANTOPRAZOLE 40MG TABLET PO SCH (09:35)
[2018-08-28] MEDS: APIXABAN 2.5 MG TABLET PO SCH ×2 (09:36→20:36)
[2018-08-28] MEDS: FUROSEMIDE 40 MG/4 ML VIAL IV SCH ×2 (09:36→17:34)
--- NOTE | 2018-08-28 10:23 | ECHO ---
HEIGHT: 4 ft 11 in WEIGHT: 227 lb 0 oz DATE OF STUDY: 08/28/[address]: Flaquita Dubon MD 2-DIMENSIONAL: YES M.MODE: YES DOPPLER: YES COLOR FLOW: YES TDS: NO PORTABLE: NO DEFINITY: NO BUBBLE STUDY: NO DIAGNOSIS: CARDIOPULMONARY ARREST CARDIAC HISTORY: CATHERIZATION: NO SURGERY: YES PROSTHETIC VALVE: NO PACEMAKER: YES MEASUREMENTS (cm) DIASTOLIC (NORMALS) SYSTOLIC (NORMALS) IVSd 1.8 (0.6-1.2) LA Diam 3.9 (1.9-4.0) LVEF 45-49% LVIDd 4.5 (3.5-5.7) LVIDs 3.7 (2.0-3.5) %FS 16% LVPWd 1.7 (0.6-1.2) Ao Diam 2.8 (2.0-3.7) 2 DIMENSIONAL ASSESSMENT: RIGHT ATRIUM: DILATED LEFT ATRIUM: DILATED RIGHT VENTRICLE: PACEMAKER CATHETER LEFT VENTRICLE: LEFT VENTRICULAR HYPERTROPHY CONCENTRIC, SEVERE TRICUSPID VALVE: NORMAL MITRAL VALVE: NORMAL PULMONIC VALVE: NORMAL AORTIC VALVE: SCLEROSIS PERICARDIAL EFFUSION: SMALL AORTIC ROOT: NORMAL LEFT VENTRICULAR WALL MOTION: MILD GLOBAL HYPOKINESIS. DOPPLER/COLOR FLOW: NO AORTIC STENOSIS OR AORTIC REGURGITATION. MILD TRICUSPID REGURGITATION, ESTIMATED RIGHT VENTRICULAR SYSTOLIC PRESSURE 63 MMHG. ESTIMATED RIGHT ATRIAL PRESSURE 10 MMHG. SEVERE PULMONARY HYPERTENSION. COMMENTS: MILDLY DEPRESSED LEFT VENTRICULAR EJECTION FRACTION. LEFT VENTRICULAR HYPERTROPHY. DILATED LEFT ATRIUM AND RIGHT ATRIUM. PACEMAKER IN RIGHT VENTRICLE. AORTIC SCLEROSIS WITH NO AORTIC STENOSIS OR REGURGITATION. MILD TRICUSPID REGURGITATION. SEVERE PULMONARY HYPERTENSION. SMALL PERICARDIAL EFFUSION. TECHNOLOGIST: YOSEPH ISSA RDCS
[2018-08-28] MEDS: SPIRONOLACTONE 25 MG TABLET PO SCH ×2 (11:15→20:37)
--- NOTE | 2018-08-28 14:31 | P.PN ---
Subjective Date of Service: 08/28/18 Chief Complaint: Abnormal chest x-ray Patient seen and examined at bedside with RN. Chart reviewed. Case discussed with nephrology and pulmonology. Patient did well overall overnight. No complaints to offer. Chest CT was done consistent with extensive lung disease. Possibility of a lung mass. Patient states that she has been diagnosed with lung cancer in the past and has gotten radiation. All the treatments were done at [facility]. Patient is a poor historian. Most of the history is collected by the daughter at bedside. Review of Systems 10-point ROS is otherwise unremarkable Physical Examination - Vital Signs Temperature: 99.1 F Blood Pressure: 98/55 Pulse: 70 Respirations: 18 Pulse Ox (%): 95 - Physical Exam General: Alert, In no apparent distress, Oriented x3 HEENT: Atraumatic, PERRLA, EOMI Neck: Supple, JVD not distended Respiratory: Normal air movement, Expiratory wheezes, Inspiratory wheezes, Rhonchi/gurgles Cardiovascular: Regular rate/rhythm, Normal S1 S2 Gastrointestinal: Normal bowel sounds, No tenderness Musculoskeletal: No tenderness Integumentary: No rashes Neurological: Normal speech, Normal tone, Normal affect Lymphatics: No axilla or inguinal lymphadenopathy - Studies Microbiology Data (last 24 hrs): 08/23/18 12:00 Blood - Blood Aerobic Blood Culture - Final No growth in 5 days. 08/23/18 12:00 Blood - Blood Anaerobic Blood Culture - Final No growth in 5 days. 08/23/18 06:55 Blood - Blood Aerobic Blood Culture - Final No growth in 5 days. 08/23/18 06:55 Blood - Blood Anaerobic Blood Culture - Final No growth in 5 days. Medications List Reviewed: Yes Assessment And Plan - Current Problems (Diagnosis) (1) Lung cancer Current Visit: Yes Status: Acute Plan: History of lung cancer in the past. Status post radiation. Patient has been seen in [facility] by Dr. Swain -CT scan at this time abnormal with possible mass versus extensive bronchiectasis -pulmonology consulted. Recommendations appreciated at this time. -records have been requested from [facility] at this time. -bronchoscopy possible at this time after records have been obtained. Qualifiers: Laterality: right Lung location: unspecified part of lung Qualified Code( s): C34.91 - Malignant neoplasm of unspecified part of right bronchus or lung (2) Cardiopulmonary arrest with successful resuscitation Current Visit: Yes Status: Resolved Plan: Status post cardiopulmonary arrest with successful resuscitation -currently extubated doing well overall. Normal sinus rhythm as well. -echocardiogram done consistent with congestive heart failure with depressed EF and diastolic dysfunction. -small amount of pericardial effusion noted as well. -cardiology and pulmonology has been consulted. Appreciated recommendations at this time -most likely patient's cardiopulmonary arrest secondary to syncopal episode and bradycardia -will hold medication that could lower her heart rate. (3) Abdominal pain Current Visit: Yes Status: Chronic Plan: Abdominal pain most likely secondary to anasarca. Improved today -continue with IV Lasix -abdominal CT negative for any acute abnormality -encourage patient to ambulate at this time Qualifiers: Abdominal location: generalized Qualified Code(s): R10.84 - Generalized abdominal pain (4) Hypervolemia Onset Date: 05/22/18 Current Visit: No Status: Acute Plan: Hyperkalemia most likely secondary to CHF versus CKD. Patient with pericardial effusion along with pleural effusion noted on the chest CT. -continue with IV Lasix at this time -nephrology has been consulted. Recommendations appreciated at this time -cardiology has been consulted. Recommendation appreciated at this time -pulmonology has been consulted recommendations appreciated at this time Qualifiers: Hypervolemia type: other Qualified Code(s): E87.79 - Other fluid overload (5) CKD (chronic kidney disease) Onset Date: 04/29/15 Current Visit: No Status: Chronic Plan: Acute on chronic kidney disease most likely secondary to hypervolemia. -BUN and creatinine elevated today. Most likely secondary to Lasix -IV Lasix at this time -renal ultrasound negative for any acute disease however positive for chronic parenchymal disease -nephrology consulted. Recommendations appreciated at this time Qualifiers: Chronic kidney disease stage: stage 3 (moderate) Qualified Code(s): N18.3 - Chronic kidney disease, stage 3 (moderate) (6) CHF (congestive heart failure) Onset Date: 01/03/15 Current Visit: No Status: Chronic Plan: History of congestive heart failure, systolic and diastolic -echo with ejection fraction of 45-49% with global hypokinesis. -NHYclass 4 heart failure. -started on spironolactone at this time. -currently on beta-shaina and Lasix. Lisinopril and losartan have been on hold due to worsening kidney function. Qualifiers: Heart failure type: systolic Heart failure chronicity: acute on chronic Qualified Code(s): I50.23 - Acute on chronic systolic (congestive) heart failure (7) Atrial fibrillation Onset Date: 06/02/17 Current Visit: No Status: Chronic Qualifiers: Atrial fibrillation type: paroxysmal Qualified Code(s): I48.0 - Paroxysmal atrial fibrillation (8) Hyperkalemia Current Visit: Yes Status: Acute Plan: Hyperkalemia most likely secondary to volume overload -potassium in the normal ranges today. -on cardiac tele -continue monitor closely. -IV Lasix at this time as well (9) Depression with anxiety Onset Date: 05/08/18 Current Visit: No Status: Chronic (10) GERD (gastroesophageal reflux disease) Onset Date: 06/02/17 Current Visit: No Status: Chronic Qualifiers: Esophagitis presence: without esophagitis Qualified Code(s): K21.9 - Gastro -esophageal reflux disease without esophagitis (11) Hypertension Onset Date: 06/02/17 Current Visit: No Status: Chronic Qualifiers: Hypertension type: essential hypertension (12) Type 2 diabetes mellitus Onset Date: 06/02/17 Current Visit: No Status: Chronic Qualifiers: Diabetes mellitus intermediate manager insulin use: with fpc use Diabetes mellitus complication status: without complication Qualified Code(s): E11.9 - Type 2 diabetes mellitus without complications; Z79.4 - intermission coordinator (current) use of insulin - Plan Pending clinical improvement at this time. Will monitor closely here in the ICU for next 24 hr
[2018-08-28] MEDS ORDERED: D50W 25 GM/50 ML SYRINGE IV ONE (16:04)
[2018-08-28] MEDS ORDERED: EPINEPHrine 1 MG/10 ML SYR IV ONE (16:04)
[2018-08-28] MEDS ORDERED: NA CHLORIDE 0.9% 1,000 ML IV ONE (16:04)
[2018-08-28] MEDS ORDERED: Caclcium Chloride 10% INJ SYR IV ONE (16:04)
--- NOTE | 2018-08-28 18:36 | CON ---
Reason For Consult: Evaluate postsyncopal event. History Of Present Illness: Mrs. Engle is a woman who has severe underlying medical problems. She i s in the hospital because of needing a lot of diuresis. She had anasarca and she had been in the [facility] for at least 2 days, probably closer to 72 hours. She was asking for assistance to get from he r bed to the bathroom. When she stood up, she lost consciousness. She was eased to the floor. Some CPR was done at some point. Somebody believed there was no pulse, a few moments later without any s pecific intervention a pulse was seen, and the blood pressure was in the normal range. The patient w rosenda up about then. She was not on telemetry when that happened, but she does have a pacemaker. Her pacemaker is present mostly because of atrial fibrillation and sick sinus syndrome. She has had atri al fibrillation and flutter. She has had lung cancer before. She has an almost normal ejection frac tion in the 45-49% range, but she gets edema because of diastolic dysfunction and other things that c ause the edema. She has a pacemaker made by [employer]. We can interrogate it and look exact ly what her rhythm was, but all the rhythm strips show the pacemaker working fine. She has not had a ny documented arrhythmia while on telemetry. Her heart rate is always 70. Blood pressures of all be en close to the normal range, but some of them get a little on the low side, 92/66 is one. She has h ad one mild temperature elevation of 99.1. Physical Examination: General: She is alert, oriented, pleasant. She is not in distress. Lungs: Clear. Heart: Exam is within normal limits. Extremities: No edema. Distal pulses palpable. Chest x-ray shows possible multiple areas of pneumonia. I wonder if she aspirated while she was unco nscious. Impression: The patient probably did not have an actual cardiac arrest. I think her blood pressure got so low somebody could not feel a pulse. We will wait and see what the pacemaker interrogation te lls us. We can look at the rhythm to the minute of when this event happened to see if she ever actua lly had pacemaker failure around the time of her cardiac arrest. Potassium was normal. Creatinine 1 .9. Blood sugars were around 257. I think we had transient hypotension, probably from a change in p osture that caused this. I will reserve judgment until we see what the pacemaker interrogation shows . An echocardiogram has been discussed. She has LVH, tiny pericardial effusion, almost normal eject ion fraction. YVONNE/JOHNNY Voice ID: [id number] Report ID: [id number]
[2018-08-28] MEDS: ATORVASTATIN 40 MG TAB PO SCH (20:36)
[2018-08-28] MEDS: ALPRAZOLAM 0.5 MG TABLET PO SCH (20:37)
--- NOTE | 2018-08-29 01:24 | PN ---
Date of Progress Note: 08/28/2018 Chief Complaint: Fluid overload, chronic kidney disease, hyperkalemia. History Of Present Illness: The patient has multiple medical problems including history of diabetes mellitus, hypertension, atrial fibrillation, congestive heart failure. She presented to emergency room complaining of abdominal pain and shortness of breath. She required intubation during this admission, was extubated yesterday. She is on IV diuretics for fluid overload. She was found to have pleural effusion. Review of Systems: The patient is feeling better today. Physical Examination: Lungs: Diminished breath sounds at bases. Heart: S1, S2. Abdomen: Soft, benign. Extremities: Edema present in both legs. Laboratory Data: Hemoglobin 10.1, WBC 6.4, platelet count is 143,000. Sodium 140, potassium 3.9, chloride 102, CO2 of 30, BUN 48, creatinine 2.43, glucose 206, calcium 7.8, phosphorus 4.5, albumin 2.5. Impression And Plan: 1. Acute kidney injury on chronic kidney disease, prerenal azotemia, nonoliguric acute tubular necrosis. Serum creatinine level has risen from 1.8 to 2.4. Monitor electrolytes closely and urine output. 2. Status post cardiac arrest. The patient was intubated. Cardiology consultation was obtained. 3. Hyperkalemia, resolved. Monitor electrolytes. Monitor for any evidence of metabolic acidosis. 4. The patient was found to have left kidney cyst, which appears to be stable. The patient will follow up with outpatient assistant curator. 5. Fluid overload, anasarca. Continue Lasix. Monitor electrolytes including magnesium level. I spent total 36 min including 26 min to coordinate care plan. JULIA/JOHNNY Voice ID: [id number] Report ID: [id number] MTDD
[2018-08-29 05:23] LABS: Absolute Monocytes 1.2 K/uL (0.1-1.3); Absolute Neutrophil 6.8 K/uL (1.8-8.0); Basophils % 0.9 % (0-1.3); Eosinophils % 0.3 % (0-4.4); Lymphocytes % 10.6 % (15.3-44.8); MPV 8.6 fL (7.6-11.3); Monocytes % 12.9 % (3.3-12.3); RBC Red Blood Cell Count 4.17 M/uL (3.86-4.86)
[2018-08-29 05:36] LABS: Albumin 2.8 g/dL (3.4-5.0); Bilirubin Total 1.1 mg/dL (0.2-1.0); Magnesium 2.5 mg/dL (1.8-2.4); Phosphorus 4.4 mg/dL (2.5-4.9); Potassium 4.2 mmol/L (3.5-5.1); Protein, Total 6.8 g/dL (6.4-8.2)
[2018-08-29] MEDS: ACETAMINOPHEN 500 MG TAB PO PRN ×2 (07:54→12:30)
[2018-08-29] MEDS: INSULIN -REGULAR HUMAN 50 UNIT/0.5 ML ML SQ SCH ×4 (07:55→21:00)
[2018-08-29] MEDS: PANTOPRAZOLE 40MG TABLET PO SCH (07:56)
[2018-08-29] MEDS: GABAPENTIN 100 MG CAP PO SCH ×3 (08:02→20:11)
[2018-08-29] MEDS: CARVEDILOL 3.125 MG TAB PO SCH (08:02)
[2018-08-29] MEDS: FUROSEMIDE 40 MG/4 ML VIAL IV SCH (08:02)
[2018-08-29] MEDS: SERTRALINE HCL 50 MG TAB PO SCH (08:02)
[2018-08-29] MEDS: SPIRONOLACTONE 25 MG TABLET PO SCH ×3 (08:02→20:14)
[2018-08-29] MEDS: APIXABAN 2.5 MG TABLET PO SCH ×2 (08:05→20:11)
--- NOTE | 2018-08-29 13:05 | P.PN ---
Subjective Date of Service: 08/29/18 Chief Complaint: Abnormal chest x-ray Patient seen and examined at bedside with RN. Chart reviewed. Case discussed with nephrology and pulmonology. Patient having nightmares overnight. Sleeping this morning. No complaints to offer this morning. Currently awaiting records from [facility] regarding her past radiation and CT report along with pathology. Review of Systems 10-point ROS is otherwise unremarkable Physical Examination - Vital Signs Temperature: 98 F Blood Pressure: 122/67 Pulse: 70 Respirations: 15 Pulse Ox (%): 95 - Physical Exam General: Alert, In no apparent distress, Oriented x3 HEENT: Atraumatic Neck: Supple, JVD distended Respiratory: Normal air movement, Expiratory wheezes, Inspiratory wheezes, Rhonchi/gurgles Cardiovascular: Regular rate/rhythm, Normal S1 S2 Gastrointestinal: Normal bowel sounds, No tenderness, Ascites Musculoskeletal: No tenderness Integumentary: No rashes Neurological: Normal speech, Normal tone, Normal affect Lymphatics: No axilla or inguinal lymphadenopathy - Studies Microbiology Data (last 24 hrs): 08/23/18 12:00 Blood - Blood Aerobic Blood Culture - Final No growth in 5 days. 08/23/18 12:00 Blood - Blood Anaerobic Blood Culture - Final No growth in 5 days. 08/23/18 06:55 Blood - Blood Aerobic Blood Culture - Final No growth in 5 days. 08/23/18 06:55 Blood - Blood Anaerobic Blood Culture - Final No growth in 5 days. Medications List Reviewed: Yes Assessment And Plan - Current Problems (Diagnosis) (1) Lung cancer Current Visit: Yes Status: Acute Plan: History of lung cancer in the past. Status post radiation. Patient has been seen in [facility] by Dr. Swain -CT scan at this time abnormal with possible mass versus extensive bronchiectasis -pulmonology consulted. Recommendations appreciated at this time. -records have been requested from [facility] at this time. -bronchoscopy possible at this time after records have been obtained. Qualifiers: Laterality: right Lung location: unspecified part of lung Qualified Code( s): C34.91 - Malignant neoplasm of unspecified part of right bronchus or lung (2) Cardiopulmonary arrest with successful resuscitation Current Visit: Yes Status: Resolved Plan: Status post cardiopulmonary arrest with successful resuscitation -currently extubated doing well overall. Normal sinus rhythm as well. -echocardiogram done consistent with congestive heart failure with depressed EF 49-45% and and diastolic dysfunction. -small amount of pericardial effusion noted as well. -cardiology and pulmonology has been consulted. Appreciated recommendations at this time -most likely patient's cardiopulmonary arrest secondary to syncopal episode and bradycardia -pacemaker has been interrogated with no events recorded. -stable hemodynamic status at this time. (3) Abdominal pain Current Visit: Yes Status: Chronic Plan: Abdominal pain most likely secondary to anasarca. Improved today -continue with IV Lasix -abdominal CT negative for any acute abnormality -encourage patient to ambulate at this time Qualifiers: Abdominal location: generalized Qualified Code(s): R10.84 - Generalized abdominal pain (4) Hypervolemia Onset Date: 05/22/18 Current Visit: No Status: Acute Plan: Hyperkalemia most likely secondary to CHF versus CKD. Patient with pericardial effusion along with pleural effusion noted on the chest CT. -continue with IV Lasix at this time -nephrology has been consulted. Recommendations appreciated at this time -cardiology has been consulted. Recommendation appreciated at this time -pulmonology has been consulted recommendations appreciated at this time Qualifiers: Hypervolemia type: other Qualified Code(s): E87.79 - Other fluid overload (5) CKD (chronic kidney disease) Onset Date: 04/29/15 Current Visit: No Status: Chronic Plan: Acute on chronic kidney disease most likely secondary to hypervolemia. -BUN and creatinine continues to be elevated here in the hospital. Most likely secondary to Lasix -IV Lasix 40 daily g b.i.d. at this time. -renal ultrasound negative for any acute disease however positive for chronic parenchymal disease -nephrology consulted. Recommendations appreciated at this time -will follow up with nephrology regarding further [place]andon on changing Lasix Qualifiers: Chronic kidney disease stage: stage 3 (moderate) Qualified Code(s): N18.3 - Chronic kidney disease, stage 3 (moderate) (6) CHF (congestive heart failure) Onset Date: 01/03/15 Current Visit: No Status: Chronic Plan: History of congestive heart failure, systolic and diastolic -echo with ejection fraction of 45-49% with global hypokinesis. -NHYclass 4 heart failure -started on spironolactone at this time. -currently on beta-shaina and Lasix. Lisinopril and losartan have been on hold due to worsening kidney function. Qualifiers: Heart failure type: systolic Heart failure chronicity: acute on chronic Qualified Code(s): I50.23 - Acute on chronic systolic (congestive) heart failure (7) Atrial fibrillation Onset Date: 06/02/17 Current Visit: No Status: Chronic Plan: Currently on Eliquis and Coreg for atrial fibrillation Qualifiers: Atrial fibrillation type: paroxysmal Qualified Code(s): I48.0 - Paroxysmal atrial fibrillation (8) Hyperkalemia Current Visit: Yes Status: Acute Plan: Hyperkalemia most likely secondary to volume overload -potassium in the normal ranges today. -on cardiac tele -continue monitor closely. -IV Lasix at this time as well (9) Depression with anxiety Onset Date: 05/08/18 Current Visit: No Status: Chronic (10) GERD (gastroesophageal reflux disease) Onset Date: 06/02/17 Current Visit: No Status: Chronic Qualifiers: Esophagitis presence: without esophagitis Qualified Code(s): K21.9 - Gastro -esophageal reflux disease without esophagitis (11) Hypertension Onset Date: 06/02/17 Current Visit: No Status: Chronic Qualifiers: Hypertension type: essential hypertension (12) Type 2 diabetes mellitus Onset Date: 06/02/17 Current Visit: No Status: Chronic Qualifiers: Diabetes mellitus fpc insulin use: with terminal make up operator use Diabetes mellitus complication status: without complication Qualified Code(s): E11.9 - Type 2 diabetes mellitus without complications; Z79.4 - parts counterman (current) use of insulin - Plan Pending clinical improvement at this time. Will follow up with medical records from [facility] regarding the pathology and the CT scan report. Will follow up with pulmonology regarding the decision for further care for the patient's lung mass. Most likely the changes on the CT scanner consistent with radiation into scarring and extensive bronchiectasis. However will await medical records from [place]. Patient can be transferred out of the ICU today. Discharge Plan: Home Plan to discharge in: Greater than 2 days - Code Status/Comfort Care Code Status Assessed: Yes Critical Care: Yes
--- NOTE | 2018-08-29 13:27 | RAD REPORT ---
EXAM DESCRIPTION: Yehuda Single View08/29/2018 1:12 pm CLINICAL HISTORY: Shortness breath COMPARISON: August FINDINGS: Right lung opacity has mildly improved. Minimal left lung opacities are unchanged. Heart remains enlarged. Pacemaker leads are in place. Small right pleural effusion is present
[2018-08-29] MEDS: TRAMADOL HCL 50 MG TAB PO PRN ×2 (14:41→20:44)
[2018-08-29] MEDS: ALBUMIN HUMAN 25% 12.5 GM, FUROSEMIDE 100 MG in NA CHLORIDE 0.9% 40 ML IV SCH (15:12)
--- NOTE | 2018-08-29 20:07 | PN ---
Date of Progress Note: 08/29/2018 Subjective: The patient is still complaining from shortness of breath, blood pressure on the lower s miguel. The patient had Salcedo been removed yesterday. After that, her urine output has been decreased. Straight cath was placed, obtained 250. Physical Examination: Vital Signs: When I saw the patient, blood pressure 123/66, pulse of 70. As I mentioned, decreased urine output. Chest: Crackles bilateral. Heart: S1, S2. Regular. Systolic murmur. Abdomen: Soft. Dullness on the suprapubic area. Extremities: +1 edema. Laboratory Data: WBC 9, H and H 10.5/34, platelet of 165. Sodium 137, potassium 4.2, bicarb 25, BUN 54, creatinine 2.5, GFR of 18. Calcium 8.1, phosphorus 4.4, PTH 277, protein creatinine 0.2. Renal ultrasound showing 06/01 with renal cyst 3.4 cm on the left. Repeated chest x-ray showing congestio n bilateral with cardiomegaly. Current Medications: The patient on its include carvedilol 3.125, atorvastatin, gabapentin 100 t.i.d ., Zoloft 50, Lasix p.o., pantoprazole, insulin, and tramadol. Assessment And Plan: 1.Acute kidney injury, normal size kidney, multifactorial, cardiorenal/hepatorenal with obstructive uropathy secondary to possible neurogenic bladder, worsening kidney function secondary to poor perfus ion, acute tubular necrosis/cardiorenal over volume with marginal low blood pressure. I am going to go ahead and place the Salcedo back. I going to place the patient on Lasix drip over the night to avoi d any low blood pressure and we will follow up with the patient. 2.Hypertension, currently low blood pressure. I will hold all blood pressure medication and we will monitor. 3.Lung cancer, status post radiation. Follow up with Pulmonary. 4.Cardiac arrest, status post resuscitation. Follow up with Cardiology. DEBBIE/JOHNNY Voice ID: [id number] Report ID: [id number]
[2018-08-29] MEDS: ATORVASTATIN 40 MG TAB PO SCH (20:11)
[2018-08-29] MEDS: ALPRAZOLAM 0.5 MG TABLET PO SCH (20:11)
[2018-08-30] MEDS: ALBUMIN HUMAN 25% 12.5 GM, FUROSEMIDE 100 MG in NA CHLORIDE 0.9% 40 ML IV SCH (00:36)
[2018-08-30] MEDS: TRAMADOL HCL 50 MG TAB PO PRN (03:01)
[2018-08-30 04:33] LABS: Absolute Lymphocytes (CBC) 0.5 K/uL (0.7-4.9); Absolute Monocytes 1.3 K/uL (0.1-1.3); Absolute Neutrophil 12.7 K/uL (1.8-8.0); Basophils % 0.6 % (0-1.3); Hematocrit 34.2 % (36.0-45.0); Lymphocytes % 3.7 % (15.3-44.8); MPV 8.4 fL (7.6-11.3); Monocytes % 8.7 % (3.3-12.3); RBC Red Blood Cell Count 4.21 M/uL (3.86-4.86)
[2018-08-30 04:45] LABS: Albumin 2.7 g/dL (3.4-5.0); Bilirubin Total 1.7 mg/dL (0.2-1.0); Magnesium 2.2 mg/dL (1.8-2.4); Phosphorus 4.9 mg/dL (2.5-4.9); Potassium 4.3 mmol/L (3.5-5.1)
[2018-08-30 05:10] LABS: Anisocytosis 1+; Blood Morphology Comment NOTED (NOT SEEN); Platelet Estimate ADEQ; Urine White Blood Cell Casts OK
[2018-08-30] MEDS: PANTOPRAZOLE 40MG TABLET PO SCH (07:30)
[2018-08-30] MEDS: INSULIN -REGULAR HUMAN 50 UNIT/0.5 ML ML SQ SCH ×4 (07:30→21:00)
[2018-08-30] MEDS ORDERED: FUROSEMIDE 100 MG in NA CHLORIDE 0.9% 90 ML IV SCH (08:15)
[2018-08-30] MEDS ORDERED: NOREPINEPHRINE 4mg/D5W 250mL 4 MG/250 ML BAG IV ONE (08:15)
[2018-08-30] MEDS ORDERED: SODIUM CHLORIDE 0.9% 10ML INJ IV PRN (08:27)
[2018-08-30] MEDS: SERTRALINE HCL 50 MG TAB PO SCH (08:41)
[2018-08-30] MEDS: APIXABAN 2.5 MG TABLET PO SCH ×2 (08:42→21:00)
[2018-08-30] MEDS: SPIRONOLACTONE 25 MG TABLET PO SCH (08:42)
[2018-08-30] MEDS: NOREPINEPHRINE 4 MG in D5W 250 ML IV PRN ×2 (08:47→23:30)
--- NOTE | 2018-08-30 09:19 | RAD REPORT ---
EXAM DESCRIPTION: RAD - Chest Single View - 08/30/2018 9:07 am CLINICAL HISTORY: Dyspnea COMPARISON: August 29 TECHNIQUE: AP portable chest image was obtained 0903 hours . FINDINGS: Lung volumes remain low. Right perihilar opacification has improved only fractionally. No progressive lung parenchymal process seen. Cardiac silhouette remains enlarged. Vasculature has dimin ished in prominence. Pleural effusions evident. No pneumothorax. No acute bony abnormality seen. No a cute aortic findings suspected. IMPRESSION: Limited portable chest examination not substantially different from prior imaging. Right perihilar opacification is probably fractionally improved.
[2018-08-30] MEDS: PIPER/TAZO/NS 2.25gm 2.25 GM/50 ML BAG IVPB SCH ×2 (09:32→16:54)
[2018-08-30] MEDS: VANCOMYCIN 1.75 GM in NA CHLORIDE 0.9% 500 ML IVPB SCH (09:32)
[2018-08-30] MEDS: PANTOPRAZOLE 40 MG INJ IVP SCH (09:34)
[2018-08-30 10:00] LABS: Arterial Blood Carboxyhemoglob 3.2 % (0-1.5); Blood Gas Oxyhemoglobin 93.8 % (94-97); Blood O2 Saturation 97.3 % (92-98.5)
--- NOTE | 2018-08-30 11:39 | P.PN ---
Subjective Date of Service: 08/30/18 Chief Complaint: Respiratory distress Patient was transferred from the floor she developed respiratory distress became little diaphoretic currently alert responsive cooperative on BiPAP Review of Systems is unable to be obtained Physical Examination - Vital Signs Temperature: 99.1 F Blood Pressure: 113/57 Pulse: 70 Respirations: 13 Pulse Ox (%): 98 - Physical Exam General: Alert, Moderate distress HEENT: Atraumatic Neck: Supple Respiratory: Clear to auscultation bilaterally, Diminished - Studies Medications List Reviewed: Yes Assessment & Plan - Problems (Diagnosis) (1) Respiratory failure Current Visit: Yes Status: Resolved Plan: Patient is 83 years of age admitted with respiratory distress he was already anti coagulated white count elevated possible sepsis renal function is worse blood gases reviewed patient is very hypoxic with a PO2 89 on 100% oxygen blood pressure stable family members made the patient DNR prognosis very poor the Lasix IV drip started including a broad-spectrum antibiotics Mr BOBO isolated from a wound in the leg echocardiogram shows diminished ejection fraction severe pulmonary hypertension patient also has is hilar mass as per radiology possible radiation induced change in any case patient is not a candidate for bronchoscopy chemo radiation if is recurrent cancer family members 0 Qualifiers: Chronicity: acute (2) Lung cancer Current Visit: Yes Status: Acute Plan: Patient has a very large right-sided hilar mass suspicious of lung cancer according to the patient she was diagnosed and treated in [place] with radiation will try and obtain records and discussed with daughter regarding further biopsy Qualifiers: Laterality: right Lung location: unspecified part of lung Qualified Code( s): C34.91 - Malignant neoplasm of unspecified part of right bronchus or lung
--- NOTE | 2018-08-30 13:05 | P.PN ---
Subjective Date of Service: 08/30/18 Primary Care Provider: unknown Chief Complaint: Respiratory distress Code simba was called this morning. Patient found to be hypoxic with low blood pressure. Patient was able to follow commands. Patient appeared ill. Patient was sent to the ICU for treatment. Physical Examination - Vital Signs Temperature: 99.1 F Blood Pressure: 113/57 Pulse: 70 Respirations: 13 Pulse Ox (%): 98 - Physical Exam General: Moderate distress, Other (Patient was able to cooperate with responses. Skin appears ashy in color. Patient appears hypoxic. Patient was hypoxic initially but now improved with oxygen.) HEENT: Atraumatic Neck: Supple Respiratory: Crackles/rales (Bilateral), Other (Poor inspiration and expiration. ) Cardiovascular: Normal pulses, Regular rate/rhythm Gastrointestinal: Normal bowel sounds, Soft and benign, Non-distended Musculoskeletal: No tenderness, No warmth Neurological: Other (Patient with increased sedation.) - Studies Medications List Reviewed: Yes Assessment & Plan Discharge Plan: Home Plan to discharge in: Greater than 2 days Physician Review Additional Text: Impression: Encephalopathy likely related to underlying infection verses cardiac in nature, noted elevated troponin with hypotension requiring vasopressor Acute on chronic systolic and diastolic CHF Recent cardiopulmonary arrest with successful resuscitation Lung cancer with history of radiation Atrial fibrillation on chronic anti coagulation therapy Depression with anxiety GERD Hypertension Diabetes mellitus type 2 Wound culture positive for MRSA: Plan: Encephalopathy likely related to underlying infection verses pulmonary vs cardiac in nature with noted elevated troponin with hypotension requiring vasopressor, hypoxia and poor inspiration/expiration: Patient currently in ICU. Patient now on Levophed. Will continue with Levophed to maintain adequate perfusion. Will continue with oxygen to maintain sats above 90%. Patient also on IV Lasix drip. Case discussed at length with nephrology. Patient to be monitored closely. Case also discussed with pulmonology. Will need to rule out infectious cause. Patient now on IV vancomycin and Zosyn. Blood cultures obtained. Will monitor CBC and BMP. Recheck x-ray. Cardiac enzymes elevated. Case discussed with family and medical power of sap consultant. Advanced directives addressed. Family and medical power of sap consultant understand her condition. They wish to place the patient as DNR. Will continue with current treatment. Advanced directives changed. Acute on chronic systolic and diastolic CHF: Patient now on IV Lasix drip. Recent cardiopulmonary arrest with successful resuscitation: Stable this time. Continue as above. Lung cancer with history of radiation: Will discuss with pulmonology. Atrial fibrillation on chronic anti coagulation therapy: Patient on Eliquis. Will continue with Eliquis if able to take oral intake. If not patient will require Lovenox. Depression with anxiety: Will monitor and address appropriately. GERD: Will continue with medication. Hypertension: Will monitor closely. Patient now on Levophed. Diabetes mellitus type 2: Will monitor closely. Wound culture positive for MRSA: Patient now on vancomycin. Time Spent Managing Pts Care (In Minutes): 70
[2018-08-30] MEDS: FUROSEMIDE 100 MG in NA CHLORIDE 0.9% 90 ML IV SCH ×2 (14:00→20:41)
--- NOTE | 2018-08-30 14:50 | PN ---
Ms. Engle had another sudden deterioration. There is a lot of neurological damage. Her mental statu s is obtunded. She follows our command like stick out her tongue. No spontaneous motion of the arms or legs. So it could well be a brainstem stroke, she has had. Of course, she is at risk for a stro ke with her arrhythmia and age. Family has decided to make her DNR. I think that is a amaya choice. There was no pacemaker malfunction during any of this, so I think we do not want to entertain the th ought again that her pacemaker is the cause of any of this. YVONNE/JOHNNY Voice ID: [id number] Report ID: [id number]
--- NOTE | 2018-08-30 17:29 | PN ---
Date of Progress Note: 08/30/2018 NEPHROLOGY FOLLOWUP Subjective: The patient over the night transferred to the floor. There has been altered mental stat us, Salcedo has been inserted, had urine output of around 450. The patient in the morning blood pressu re dropped down, transferred back to the ICU. The patient has been altered and sleepy. Physical Examination: General: When I saw the patient, the patient is lying in bed, on BiPAP. Vital Signs: Blood pressure 113/57, pulse of 70, afebrile. The patient as I mentioned, had urine ou tput of 450. Chest: Crackles, bilateral. Heart: S1 and S2, regular. Abdomen: Soft, nontender. Extremities: Trace edema. Laboratory Data: WBC 14.6, H and H of 10.7 and 34.2, platelets 164. Sodium 135, potassium 4.3, bica rb 26, BUN 61, creatinine 2.9, GFR down to 15, calcium 8.1, phosphorus 4.9. Current Medications: The patient on include the patient was started on Levophed, Zosyn 2.25 q.8, van comycin, and the patient on Lasix drip, Eliquis, Tylenol, Zoloft, Zofran, pantoprazole. Assessment And Plan: 1.Acute kidney injury secondary to cardiorenal over-volume. I am going to go ahead and continue on the Lasix drip, in fact, I am going to increase the Lasix to 20 mg per hour and will follow up the venkata bull. 2.Shock, questionable septic shock/cardiogenic. We will go ahead and send procalcitonin. I agree w ith the Levophed. Continue current antibiotic. We will follow up the culture. 3.Wound infection, methicillin-resistant Staphylococcus aureus. Continue vancomycin. We will follo w up vancomycin trough. 4.Altered mental status, encephalopathy. Hypercapnic encephalopathy has been ruled out. Continue s upportive care. Continue antibiotic. We will maintain the blood pressure. We will follow up with t alda primary. We will send for ammonia level. DEBBIE/JOHNNY Voice ID: [id number] Report ID: [id number]
--- NOTE | 2018-08-30 20:23 | RAD REPORT ---
EXAM DESCRIPTION: CT - Head Brain Wo Cont - 08/30/2018 8:11 pm CLINICAL HISTORY: r/o stroke CVA symptomology. COMPARISON: Head Brain Wo Cont dated 08/27/2018; Head Brain Wo Cont dated 04/15/2017; Thorax Wo Con jonn ed 08/27/2018 TECHNIQUE: All CT scans are performed using dose optimization technique as appropriate and may inclu de automated exposure control or mA/KV adjustment according to patient size. FINDINGS: No intracranial hemorrhage, hydrocephalus or extra-axial fluid collection.Mild generalized brain atrophy.No areas of brain edema or evidence of midline shift. The vertebral arteries are heavi ly calcified. The paranasal sinuses and mastoids are clear. The calvarium is intact. IMPRESSION: No acute intracranial abnormality.
[2018-08-30] MEDS: ATORVASTATIN 40 MG TAB PO SCH (21:00)
--- NOTE | 2018-08-30 21:35 | RAD REPORT ---
EXAM DESCRIPTION: RAD - Chest Single View - 08/30/2018 9:31 pm CLINICAL HISTORY: PICC Placement COMPARISON: Chest Single View dated 08/30/2018; Chest Single View dated 08/29/2018; Chest Single View da roldan 08/26/2018; Chest Single View dated 08/25/2018 FINDINGS: Portable chest was obtained following placement of a right upper extremity PICC line. The catheter tip projects over the proximal SVC..
[2018-08-31] MEDS: FUROSEMIDE 100 MG in NA CHLORIDE 0.9% 90 ML IV SCH ×4 (00:58→18:45)
[2018-08-31] MEDS: PIPER/TAZO/NS 2.25gm 2.25 GM/50 ML BAG IVPB SCH ×3 (01:00→16:58)
[2018-08-31 06:52] LABS: Absolute Lymphocytes (CBC) 0.5 K/uL (0.7-4.9); Absolute Monocytes 0.8 K/uL (0.1-1.3); Absolute Neutrophil 9.8 K/uL (1.8-8.0); Basophils % 0.2 % (0-1.3); Eosinophils % 0.1 % (0-4.4); Hematocrit 32.3 % (36.0-45.0); Lymphocytes % 4.1 % (15.3-44.8); MPV 8.7 fL (7.6-11.3); Monocytes % 7.5 % (3.3-12.3); RBC Red Blood Cell Count 3.97 M/uL (3.86-4.86)
[2018-08-31 07:00] LABS: Magnesium 2.3 mg/dL (1.8-2.4); Phosphorus 5.5 mg/dL (2.5-4.9); Potassium 4.1 mmol/L (3.5-5.1)
[2018-08-31] MEDS: INSULIN -REGULAR HUMAN 50 UNIT/0.5 ML ML SQ SCH ×4 (08:15→21:00)
[2018-08-31] MEDS: PANTOPRAZOLE 40 MG INJ IVP SCH (08:15)
[2018-08-31] MEDS: APIXABAN 2.5 MG TABLET PO SCH ×2 (08:53→21:55)
--- NOTE | 2018-08-31 09:52 | P.PN ---
Subjective Date of Service: 08/31/18 Primary Care Provider: unknown Chief Complaint: Respiratory distress Subjective: Other (Patient remains on Levophed. Patient with lethargy last night. Slight improvement since yesterday clinically.) Physical Examination - Vital Signs Temperature: 97.3 F Blood Pressure: 102/47 Pulse: 70 Respirations: 16 Pulse Ox (%): 97 - Physical Exam General: Alert, Cooperative, Other (Increased tiredness but appropriate and cooperative.) HEENT: Atraumatic Neck: Supple Respiratory: Crackles/rales (Bilateral) Cardiovascular: Normal pulses, Regular rate/rhythm Gastrointestinal: Normal bowel sounds, Soft and benign, Non-distended, No tenderness, No masses, No rebound, No guarding Musculoskeletal: No warmth Integumentary: Tenderness/swelling (Edema to the upper and lower extremities.) Neurological: Normal speech, Normal strength at 5/5 x4 extr, Normal tone, Normal affect - Studies Medications List Reviewed: Yes Assessment & Plan Discharge Plan: Other (Home versus skilled placement) Plan to discharge in: Greater than 2 days Physician Review Additional Text: Impression: Encephalopathy likely related to underlying infection verses pulmonary vs cardiac in nature with noted elevated troponin with hypotension requiring vasopressor, hypoxia, bacteremia and poor inspiration/expiration: Acute on chronic systolic and diastolic CHF Acute on chronic renal failure stage 5 Recent cardiopulmonary arrest with successful resuscitation Lung cancer with history of radiation Atrial fibrillation on chronic anti coagulation therapy Depression with anxiety GERD Hypertension now with hypotension on vasopressor Diabetes mellitus type 2 Wound culture positive for MRSA: Plan: Encephalopathy likely related to underlying infection verses pulmonary vs cardiac in nature with noted elevated troponin with hypotension requiring vasopressor, hypoxia, bacteremia and poor inspiration/expiration: Patient stable at this time. Patient cooperative but still sluggish. Patient continues on Levophed. Poor output noted. Patient remains on IV Lasix drip. Patient on IV vancomycin and Zosyn. Blood cultures positive. Await findings. Recent wound culture positive for methicillin-resistant Staph aureus. Renal function has declined. Troponin elevated likely from stress related to multifactorial issues. No need for cardiac intervention at this time. Case discussed at length with family yesterday. Will continue to monitor closely. Will check to see if there is any improvement over the next 12:48 p.m.. Family is hesitant consider dialysis at this time. Will continue to monitor closely. Will have patient evaluated for swallowing. If stable will advance her diet. Patient remains DNR. Family understands long-term care may require skilled placement if improved or hospice if no significant improvement or change. Will discuss with nephrology, cardiology and pulmonology. Acute on chronic systolic and diastolic CHF: Patient currently on a Lasix drip. Poor output noted. Will discuss with nephrology. Acute on chronic renal failure stage 5: Renal function continues to decline. Poor urine output noted. Will discuss further with nephrology. Patient and family likely not desiring dialysis at this time. Will continue to reassess. Recent cardiopulmonary arrest with successful resuscitation: Stable this time. Continue as above. Lung cancer with history of radiation: Will discuss with pulmonology. No future intervention due to current and long-term status. Atrial fibrillation on chronic anti coagulation therapy: Patient on Eliquis. Will continue with Eliquis if able to take oral intake. If not patient will require Lovenox. Depression with anxiety: Will monitor and address appropriately. GERD: Will continue with medication. Hypertension now with hypotension on vasopressor: Continue to hold blood pressure medication. Will monitor closely. Patient now on Levophed. Diabetes mellitus type 2: Will monitor closely. Wound culture positive for MRSA: Patient now on vancomycin. Time Spent Managing Pts Care (In Minutes): 55
[2018-08-31] MEDS: LIDOCAINE 5% PATCH TOP SCH (10:05)
[2018-08-31] MEDS ORDERED: METOLAZONE 5 MG TABLET PO SCH (16:00)
[2018-08-31] MEDS: NOREPINEPHRINE 4 MG in D5W 250 ML IV PRN (20:43)
[2018-08-31] MEDS: ATORVASTATIN 40 MG TAB PO SCH (21:55)
--- NOTE | 2018-09-01 00:14 | PN ---
Date of Progress Note: 08/29/2018 Dr. Rowley saw Ms. Engle on August 28 for syncope. Ordered a pacemaker check. It was thought that t he symptoms were secondary to orthostasis. The pacemaker check was normal without any evidence of dy sfunction. She also has an acute kidney injury with hyperkalemia and fluid overload that is improvin g. Again, I think the final diagnosis as far as her syncope is probably orthostatic hypotension. We will continue to be available if any questions arise. We will sign off her case for now. EVE/JOHNNY Voice ID: [id number] Report ID: [id number]
[2018-09-01] MEDS: FUROSEMIDE 100 MG in NA CHLORIDE 0.9% 90 ML IV SCH ×6 (00:21→21:07)
[2018-09-01] MEDS: PIPER/TAZO/NS 2.25gm 2.25 GM/50 ML BAG IVPB SCH ×3 (01:15→16:24)
--- NOTE | 2018-09-01 02:31 | PN ---
Date of Progress Note: 08/31/2018 Subjective: The patient was admitted with hepatic encephalopathy, sepsis, and congestive heart failu re. The patient developed cardiac arrest, recovered, and then again had another code yellow. The pa jorgito was placed on Lasix drip over the night. The patient is also on Levophed. The patient is stil l lethargic. Yesterday, we discontinued all sedation medication and continued on the Lasix drip. Th e patient had only around 100 of urine output. Today, slightly more awake. The patient is still on BiPAP. Physical Examination: Vital Signs: When I saw the patient, blood pressure 110/62, pulse of 88. Chest: Crackles bilateral. Heart: S1, S2. Systolic murmur. Abdomen: Soft, nontender. Extremities: +3 edema, more on the upper extremity with weeping. Genitourinary: Again, the patient had urine output around 100. Neurologic: Alert. Follows simple command. Sleepy. Current Medications: The patient is on include Zosyn, vancomycin, Levophed, Eliquis, atorvastatin, L asix drip at 20 per hour, and pantoprazole. Laboratory Data: WBC 11.1, H and H 10.0/32.3, and platelets 165. Sodium 136, potassium 4.1, bicarb 27, BUN 72, creatinine 3.6, GFR of 12, calcium 7.7, phosphorus 5.5, and magnesium 2.3. PTH 277. Pro calcitonin elevated at 2.2. Culture the patient is growing on the wound MRSA, blood culture being po sitive. Assessment And Plan: 1.Acute kidney injury secondary to toxic acute tubular necrosis, poor perfusion acute tubular necros is, anuric. The patient is going to need renal replacement therapy. I had long discussion with the family in the presence of 2 daughters regarding the option of treatment including the need of dialysi s. Family has not decided yet. If family agreed, we will go ahead and start the patient on dialysis . I am going to go ahead and give the patient a single dose of Zaroxolyn, try to convert her to nono liguric, and continue Lasix drip for the time being. 2.Septic shock. Continue current antibiotic. Continue supportive treatment with Levophed. 3.Respiratory failure. Continue BiPAP. 4.Hepatic encephalopathy. Keep holding all sedation. Continue current treatment. MA/MODL Voice ID: [id number] Report ID: [id number]
[2018-09-01 05:55] LABS: Absolute Lymphocytes (CBC) 0.3 K/uL (0.7-4.9); Absolute Monocytes 0.6 K/uL (0.1-1.3); Absolute Neutrophil 6.5 K/uL (1.8-8.0); Basophils % 0.4 % (0-1.3); Eosinophils % 0.6 % (0-4.4); Hematocrit 30.2 % (36.0-45.0); Lymphocytes % 4.5 % (15.3-44.8); MPV 8.4 fL (7.6-11.3); Monocytes % 8.4 % (3.3-12.3); RBC Red Blood Cell Count 3.77 M/uL (3.86-4.86)
[2018-09-01 06:06] LABS: Magnesium 2.4 mg/dL (1.8-2.4); Potassium 4.3 mmol/L (3.5-5.1)
[2018-09-01] MEDS: PANTOPRAZOLE 40 MG INJ IVP SCH (09:11)
[2018-09-01] MEDS: VANCOMYCIN 1.75 GM in NA CHLORIDE 0.9% 500 ML IVPB SCH (09:11)
[2018-09-01] MEDS: INSULIN -REGULAR HUMAN 50 UNIT/0.5 ML ML SQ SCH ×3 (09:11→16:24)
[2018-09-01] MEDS: APIXABAN 2.5 MG TABLET PO SCH ×2 (09:12→21:00)
--- NOTE | 2018-09-01 09:32 | P.PN ---
Subjective Date of Service: 09/01/18 Primary Care Provider: unknown Chief Complaint: Respiratory distress Subjective: Other (Patient still lethargic but cooperative with commands. Poor urinary output.) Physical Examination - Vital Signs Temperature: 97.5 F Blood Pressure: 100/47 Pulse: 71 Respirations: 15 Pulse Ox (%): 99 - Physical Exam General: Alert, Cooperative, Other (Increased lethargy) HEENT: Atraumatic Neck: Supple Respiratory: Crackles/rales (Crackles to the bases) Cardiovascular: Normal pulses, Regular rate/rhythm Gastrointestinal: Normal bowel sounds, Soft and benign, Non-distended, No masses , No rebound, No guarding Musculoskeletal: No erythema, No tenderness, No warmth Integumentary: No erythema, No warmth, No cyanosis, Tenderness/swelling ( Anasarca noted) Neurological: Normal speech, Normal tone, Other (Patient still very weak.) - Studies Medications List Reviewed: Yes Assessment & Plan Discharge Plan: Other (Skilled placement versus home with hospice versus possible transfer) Plan to discharge in: Greater than 2 days Physician Review Additional Text: Impression: Encephalopathy likely related to bacteremia, poor perfusion, acute on chronic renal failure likely ATN and 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 Patient remains lethargic. Poor urinary output noted. Worsening renal function noted. Patient continues on Levophed, IV vancomycin and Zosyn. Blood cultures pending. Case discussed at length with family. Family still trying to decide whether they want to proceed with possible dialysis. Dialysis would be complicated since the patient is on Levophed. Gentle dialysis may be required or eventually continuous venovenous hemodialysis. That would require transfer. Family met with hospice yesterday. They are considering possible hospice if her condition will continue to decline or not significantly improve over time. They mention the patient would not want to be in this type of condition long-term. Will discuss further with nephrology. Patient remains DNR. Acute on chronic systolic and diastolic CHF: Patient currently on a Lasix drip. Patient continues with poor urinary output. Will discuss with nephrology. Acute on chronic renal failure stage 5: Renal function continues to decline. Poor urine output noted. Will discuss with nephrology. Family still deciding on dialysis. They would like input from Nephrology. Recent cardiopulmonary arrest with successful resuscitation: Stable this time. Continue as above. Cardiology felt syncope likely related to orthostatic hypotension. No need for cardiac intervention at this time. Lung cancer with history of radiation: Will discuss with pulmonology. No future intervention due to current and long-term status. Atrial fibrillation on chronic anti coagulation therapy: Patient on Eliquis. Will continue with Eliquis if able to take oral intake. If not patient will require Lovenox. Depression with anxiety: Will monitor and address appropriately. GERD: Will continue with medication. Hypertension now with hypotension on vasopressor: Continue to hold blood pressure medication. Will monitor closely. Patient continues on Levophed to maintain map of 65. Diabetes mellitus type 2: Will monitor closely. Sliding scale in place. Wound culture positive for MRSA: Patient now on vancomycin. Mild malnutrition: Will encourage oral intake. Patient may require supplementation. Time Spent Managing Pts Care (In Minutes): 55
--- NOTE | 2018-09-01 13:37 | P.PN ---
Subjective Date of Service: 09/01/18 Primary Care Provider: unknown Chief Complaint: Respiratory distress Subjective: Worsening oliguric lethargic on levophed I discussed with family at bedside about pt prognosis and worsening RFT pt with multiple comorbidities and poor prognosis the risk of initiating HD outeigh the benefit family agreed cont current mg Physical Examination - Vital Signs Temperature: 97.5 F Blood Pressure: 98/46 Pulse: 71 Respirations: 15 Pulse Ox (%): 99 - Physical Exam General: Comatose HEENT: Atraumatic Neck: Supple, Without JVD or thyroid abnormality Respiratory: Clear to auscultation bilaterally Cardiovascular: Regular rate/rhythm, Normal S1 S2, Edema Gastrointestinal: Soft and benign, Distended - Studies Medications List Reviewed: Yes Assessment And Plan - Current Problems (Diagnosis) (1) Hyperkalemia Current Visit: Yes Status: Acute (2) Hypervolemia Onset Date: 05/22/18 Current Visit: No Status: Acute Qualifiers: Hypervolemia type: other Qualified Code(s): E87.79 - Other fluid overload (3) Pleural effusion Onset Date: 05/22/18 Current Visit: No Status: Acute (4) CKD (chronic kidney disease) Onset Date: 04/29/15 Current Visit: No Status: Chronic Qualifiers: Chronic kidney disease stage: stage 3 (moderate) Qualified Code(s): N18.3 - Chronic kidney disease, stage 3 (moderate) - Plan QUINTIN oliguric lethargic on levophed I discussed with family at bedside about pt prognosis and worsening RFT pt with multiple comorbidities and poor prognosis the risk of initiating HD outeigh the benefit family agreed cont current [facility] abdominal distension Abd CT : no acute pathology need GI f/u as an OP lt renal cyst stable Lt adrenal myelolipoma elevated ALP , PTH 277 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
[2018-09-01] MEDS: NOREPINEPHRINE 4 MG in D5W 250 ML IV PRN (17:50)
[2018-09-01] MEDS: ATORVASTATIN 40 MG TAB PO SCH (21:00)
[2018-09-02] MEDS: INSULIN -REGULAR HUMAN 50 UNIT/0.5 ML ML SQ SCH ×5 (00:06→20:39)
[2018-09-02] MEDS: FUROSEMIDE 100 MG in NA CHLORIDE 0.9% 90 ML IV SCH ×5 (01:39→21:35)
[2018-09-02] MEDS: PIPER/TAZO/NS 2.25gm 2.25 GM/50 ML BAG IVPB SCH ×3 (01:40→17:26)
[2018-09-02 08:45] LABS: Magnesium 2.4 mg/dL (1.8-2.4); Potassium 4.1 mmol/L (3.5-5.1)
[2018-09-02 08:50] LABS: Absolute Lymphocytes (CBC) 0.5 K/uL (0.7-4.9); Absolute Monocytes 0.8 K/uL (0.1-1.3); Absolute Neutrophil 7.9 K/uL (1.8-8.0); Basophils % 0.4 % (0-1.3); Eosinophils % 0.4 % (0-4.4); Hematocrit 32.3 % (36.0-45.0); Lymphocytes % 5.3 % (15.3-44.8); MPV 8.7 fL (7.6-11.3); Monocytes % 9.1 % (3.3-12.3); RBC Red Blood Cell Count 4.01 M/uL (3.86-4.86)
[2018-09-02] MEDS: APIXABAN 2.5 MG TABLET PO SCH ×3 (09:00→20:39)
[2018-09-02] MEDS: NOREPINEPHRINE 4 MG in D5W 250 ML IV PRN ×2 (10:07→22:17)
[2018-09-02] MEDS: PANTOPRAZOLE 40 MG INJ IVP SCH (10:08)
[2018-09-02] MEDS: LIDOCAINE 5% PATCH TOP SCH (10:10)
[2018-09-02] MEDS ORDERED: METOLAZONE 5 MG TABLET PO ONE (14:00)
--- NOTE | 2018-09-02 14:32 | PN ---
Date of Progress Note: 09/02/2018 Subjective: The patient is still lethargic, but more awake today. Still BiPAP dependent. Required Levophed of 5 mcg. The patient started having better urine output. Physical Examination: Vital Signs: Blood pressure 107/46, pulse of 70. The patient had urine output of 600. Chest: Crackles bilateral. Heart: S1, S2. Systolic murmur. Abdomen: Soft, nontender, ascites. Extremities: +2 edema, more prominent on the upper extremities. Laboratory Data: WBC 9.3, H and H 10.1/32.3, platelets 125. Sodium 136, potassium 4.1, bicarb 26, B UN 85, creatinine of 4, calcium 7.6, magnesium 2.3. Current Medications: The patient on include Zosyn, vancomycin, Levophed, Eliquis, atorvastatin, Lasi x drip at 40 per hour, Zofran, pantoprazole. Assessment And Plan: 1.Acute kidney injury secondary to toxic acute tubular necrosis, poor perfusion, acute tubular necro sis secondary to low blood pressure, questionable of hepatorenal. Currently nonoliguric. I going to continue Lasix drip. I will add metolazone for today and we will follow up. Apparently with all mu ltiple comorbid conditions including the cirrhosis and the infection, the patient is going to be poor prognosis overall. The patient's family is more leaned towards hospice care and comfort care. Wait ing for other family member for final decision. Currently, we will continue current treatment and we will follow up. 2.Septic shock. Continue current antibiotic, dose appropriate. I going to follow up vancomycin tro ugh. 3.Cirrhosis, as by primary. 4.Anasarca secondary to hepatorenal. Continue diuresis. 5.Altered mental status secondary to metabolic encephalopathy. Continue supportive care. MA/MODL Voice ID: [id number] Report ID: [id number]
--- NOTE | 2018-09-02 14:58 | P.PN ---
Subjective Date of Service: 09/02/18 Primary Care Provider: unknown Chief Complaint: Respiratory distress Still with increased lethargy. The patient remains on Levophed drip. Urinary output poor. Physical Examination - Vital Signs Temperature: 99.3 F Blood Pressure: 111/47 Pulse: 70 Respirations: 20 Pulse Ox (%): 93 - Physical Exam General: Other (Slight confusion but cooperative) HEENT: Atraumatic Neck: Supple Respiratory: Crackles/rales (Bilateral) Cardiovascular: Normal pulses, Regular rate/rhythm Gastrointestinal: Normal bowel sounds, Soft and benign, Non-distended, No masses , No rebound, No guarding Integumentary: Tenderness/swelling (Anasarca) - Studies Medications List Reviewed: Yes Assessment & Plan Discharge Plan: Other (Hospice) Plan to discharge in: 24 Hours Physician Review Additional Text: Impression: Encephalopathy likely related to bacteremia, poor perfusion, acute on chronic renal failure likely ATN and 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 Blood cultures pending. Case discussed at length with family again yesterday. Case also discussed at length with nephrology. Patient will likely not benefit with dialysis long-term plus it may be difficult to provide. This was discussed in detail with the family. Family understands her current comorbid condition and prognosis. Family leaning towards hospice. Other family members to discuss further. Possible withdrawal of care soon likely as early as tomorrow. Patient remains DNR. I will turn the service over to Dr. Dubon tomorrow. I will go over the plan of care with her. Acute on chronic systolic and diastolic CHF: Patient currently on a Lasix drip. Patient continues with poor urinary output. Case discussed with nephrology. Patient given extra doses of diuretic therapy. Acute on chronic renal failure stage 5: Renal function continues to decline. Poor urine output noted. Will discuss with nephrology and family. Dialysis likely not to make any significant difference in the future. Recent cardiopulmonary arrest with successful resuscitation: Stable this time. Continue as above. Cardiology felt syncope likely related to orthostatic hypotension. No need for cardiac intervention at this time. Lung cancer with history of radiation: Will discuss with pulmonology. No future intervention due to current and long-term status. Atrial fibrillation on chronic anti coagulation therapy: Patient on Eliquis. Will continue with Eliquis if able to take oral intake. If not patient will require Lovenox. Depression with anxiety: Will monitor and address appropriately. GERD: Will continue with medication. Hypertension now with hypotension on vasopressor: Continue to hold blood pressure medication. Will monitor closely. Patient continues on Levophed to maintain map of 65. Diabetes mellitus type 2: Will monitor closely. Sliding scale in place. Wound culture positive for MRSA: Patient now on vancomycin. Mild malnutrition: Will encourage oral intake. Patient may require supplementation. Will hold off on oral additional supplementation as the patient's family may consider hospice Time Spent Managing Pts Care (In Minutes): 55
[2018-09-02] MEDS: TRAMADOL HCL 50 MG TAB PO PRN ×2 (16:40→22:44)
[2018-09-02] MEDS: ATORVASTATIN 40 MG TAB PO SCH (20:39)
[2018-09-03] MEDS: PIPER/TAZO/NS 2.25gm 2.25 GM/50 ML BAG IVPB SCH ×2 (00:06→09:02)
[2018-09-03 00:19] VITALS: O2SAT 100
[2018-09-03] MEDS: FUROSEMIDE 100 MG in NA CHLORIDE 0.9% 90 ML IV SCH ×2 (03:37→09:01)
[2018-09-03 05:48] VITALS: BMI 47.5
[2018-09-03 05:58] LABS: Magnesium 2.3 mg/dL (1.8-2.4); Phosphorus 5.6 mg/dL (2.5-4.9); Potassium 4.1 mmol/L (3.5-5.1)
[2018-09-03] MEDS: VANCOMYCIN 1.75 GM in NA CHLORIDE 0.9% 500 ML IVPB SCH (09:00)
[2018-09-03] MEDS: PANTOPRAZOLE 40 MG INJ IVP SCH (09:01)
[2018-09-03] MEDS: APIXABAN 2.5 MG TABLET PO SCH (09:01)
[2018-09-03] MEDS: INSULIN -REGULAR HUMAN 50 UNIT/0.5 ML ML SQ SCH (09:01)
[2018-09-03] MEDS: LIDOCAINE 5% PATCH TOP SCH (09:01)
[2018-09-03 10:26] VITALS: BP 106/72; TEMP 98.1
[2018-09-04] MEDS ORDERED: VANCOMYCIN 1.75 GM in NA CHLORIDE 0.9% 500 ML IVPB SCH (09:00)
== END 2018-09-03 10:26 | disposition hospice, inpatient (51) | DRG 291 ==
LOC: ER 06:01 → ERHOLD 08:56 → 2ND 11:30 → OBSVTOIN 08-25 11:08 → 3RD-ICU 08-27 00:33 → 4TH 08-29 17:10 → 3RD-ICU 08-30 07:45
PROVIDERS: ADMIT Internal Medicine; ATTEND Internal Medicine
PROC: 0BH17EZ Insertion of Endotracheal Airway into Trachea, Via Natural or Artificial Opening (ICD-10-PCS; principal; 2018-08-26)
PROC: 5A1935Z Respiratory Ventilation, Less than 24 Consecutive Hours (ICD-10-PCS; 2018-08-26)
PROC: 5A12012 Performance of Cardiac Output, Single, Manual (ICD-10-PCS; 2018-08-26)
PROC: 5A09557 Assistance with Respiratory Ventilation, Greater than 96 Consecutive Hours, Continuous Positive Airway Pressure (ICD-10-PCS; 2018-08-27)
PROC: 05H533Z Insertion of Infusion Device into Right Subclavian Vein, Percutaneous Approach (ICD-10-PCS; 2018-08-30)
PROC: B548ZZA Ultrasonography of Superior Vena Cava, Guidance (ICD-10-PCS; 2018-08-30)
DX: I13.0 Hypertensive heart and chronic kidney disease with heart failure and stage 1 through stage 4 chronic kidney disease, or unspecified chronic kidney disease (principal); J96.00 Acute respiratory failure, unspecified whether with hypoxia or hypercapnia; I46.9 Cardiac arrest, cause unspecified; N17.0 Acute kidney failure with tubular necrosis; I50.43 Acute on chronic combined systolic (congestive) and diastolic (congestive) heart failure; A41.9 Sepsis, unspecified organism; R65.21 Severe sepsis with septic shock; G93.41 Metabolic encephalopathy; J90 Pleural effusion, not elsewhere classified; C34.91 Malignant neoplasm of unspecified part of right bronchus or lung; I31.3 Pericardial effusion (noninflammatory); E44.1 Mild protein-calorie malnutrition; N18.5 Chronic kidney disease, stage 5; L97.229 Non-pressure chronic ulcer of left calf with unspecified severity; E87.5 Hyperkalemia; Z88.8 Allergy status to other drugs, medicaments and biological substances; Z91.048 Other nonmedicinal substance allergy status; Z86.718 Personal history of other venous thrombosis and embolism; Z95.0 Presence of cardiac pacemaker; E78.5 Hyperlipidemia, unspecified; E87.70 Fluid overload, unspecified; I48.0 Paroxysmal atrial fibrillation; E11.22 Type 2 diabetes mellitus with diabetic chronic kidney disease; F32.9 Major depressive disorder, single episode, unspecified; F41.9 Anxiety disorder, unspecified; K21.9 Gastro-esophageal reflux disease without esophagitis; Z79.4 Long term (current) use of insulin; F10.11 Alcohol abuse, in remission; N28.1 Cyst of kidney, acquired; D17.79 Benign lipomatous neoplasm of other sites; R00.1 Bradycardia, unspecified; E05.80 Other thyrotoxicosis without thyrotoxic crisis or storm; Z66 Do not resuscitate; I95.9 Hypotension, unspecified; K74.60 Unspecified cirrhosis of liver; B95.62 Methicillin resistant Staphylococcus aureus infection as the cause of diseases classified elsewhere
CPT/HCPCS: 36415; 51702; 70450; 71045; 71250; 74176; 76377; 76770; 80048; 80053; 80076; 80202; 81003; 81015; 82140; 82553; 82570; 82805; 82962; 82977; 83690; 83735; 83970; 84100; 84145; 84156; 84443; 84484; 85025; 87040; 87070; 87077; 87086; 87088; 87186; 87205; 93005; 93306; 94660; 94760; 96361; 96374; 96375; 97110; 97163; 97530; 99285; C9113; G0378; J0171; J0610; J1940; J2405; J3010; J7030; J7060; P9047

== ENCOUNTER 2018-09-03 10:28 | Inpatient (IN) | payer OTHER ==
[2018-09-03] MEDS ORDERED: LORazepam 2 MG/ML VIAL IV PRN (10:32)
--- OUTSIDE RECORDS SUMMARY | 2018-09-03 10:32 | XMS REPORT | Clinical Summary ---
:1935 Author Organization [facility] Address [address] [place] [address] Care Team Providers Name Role Phone Jace [...] INFLUENZA VACCINE 03/22/2018 Implants Implanted Type Area [employer] Device Shelf Model / Identifier Expiration Serial / Date Lot T2 F/T Locking Screw 5mmx32.5mm - [id number] IMPLANT Left: ANGEL [id number] / Implanted: 04/19/2017 (Quantity not on file) DEVICES [employer] / Nail Im Trchntrc W/ Set Scr Ti 130deg [id number] Strl - [id number] Orthopedic Left: ANGEL 09/21/2021 [id number] / Implanted: 04/19/2017 (Quantity not on file) Trauma [employer] / Implants [id number] Shaft Trnkl Modlr 448mm Strl - [id number] Orthopedic N/A: N/A ANGEL [id number] [id number] / Implanted: Qty: 1 on 04/19/2017 by Josias Woods MD [employer] / Implants [id number] Screw Bone Lag Ti [id number] - [id number] Orthopedic Left: ANGEL [id number] / Implanted: 04/19/2017 (Quantity not on file) [employer] / Implants Results Not on fileafter 09/02/2017 Insurance Payer Benefit Plan / Group Subscriber ID Type Phone Address MEDICARE MEDICARE PART A AND B xxxxxxxxxx Medicare [place], [place] AETNA AETNA HMO,POS,EPO, MC/EC xxxxxx HMO Advance Directives Patient has advance care planning documents on file. For more information, please contact:[place] [address]
--- OUTSIDE RECORDS SUMMARY | 2018-09-03 10:32 | XMS REPORT | Continuity of Care Document ---
:1935 Author Organization Interface Problems Problem Status Onset Classification Date Comments Source Date Reported Discharge 05/12/2017 [facility] Diagnosis: 7 Complication of Salcedo catheter CATHETER PAIN Active [facility] 7 Jose Medications Medication Details Route Status Patient Ordering Order Source Instructions Provider Date Acetaminophen 1 tab, Inactive MH 300 MG / Codeine Route: PO, 017 [place] Phosphate 30 MG Drug Form: Oral Tablet TAB, [Tylenol with Dosing Codeine #3] Weight 81.818, kg, ONCE, STAT, Start date: 05/09/17 21:22:00 CDT, Stop date: 05/09/17 21:22:00 CDTNotes: Do not exceed 4gm/day of acetaminop hen. (Same as: Tylenol with Codeine # 3) Allergies, Adverse Reactions, Alerts Substance Category Reaction Severity Reaction Status Date Comments Source type Reported Rythmol Assertion Drug Active allergy [place] Immunizations Immunization Date Given Site Status Last [...] For Provider Date Date [facility] [id number] Sergey 05/09 05/10 KERWIN Hinson /2016 [facility] Procedures Procedure Code Date Perfomer Comments Source Hip arthroplasty [id number] [facility]
[2018-09-03] MEDS: MORPHINE 4 MG/ML SYR IV SCH ×3 (10:43→15:00)
[2018-09-03] MEDS ORDERED: SCOPOLAMINE HYDROBROMIDE PATCH TD SCH (10:45)
[2018-09-03 12:18] VITALS: BP 49/29
[2018-09-03 12:36] VITALS: BMI 47.5
--- NOTE | 2018-09-03 21:35 | P.SSS ---
Patient History Date of Service: 09/03/18 Reason for admission: HOSPICE ADMISSION FOR ACUTE RENAL FAILURE History of Present Illness: MS. NEIL WAS CHANGED FROM DR. DOUGLAS TO ME FOR [facility] ADMISSION. THIS IS FOR HYPOTENSION, ACUTE RENAL FAILURE. NURSE SAW HER IN AM AND AT 9:30 I SAW HER. SHE DEFINITELY BELONGS TO HOSPICE. HER BP IS LOW AT 90 SYSTOLIC ON LEVOPHED DRIP. FAMILY HAS RIGHTLY DECIDED NOT TO INTERVENE AGAIN. SHE ALREADY WAS CODED ONCE AND HAD CPR. I TALKED TO FAMILY IN DETAIL AND ADVISED THAT THEY MADE A RIGHT DECISION. AT THIS AGE WITH TERMINAL DIAGNOSIS SHE SHOULD NOT BE IN [place] ANY LONGER. SHE IS READY TO GO. I TOLD THEM SHE WILL NOT LAST MORE THAN A DAY OFF THE LEVOPHED. SHE AT 83 WITH LEVOPHED TO SUPPORT HER IS NOT A DIALYSIS CANDIDATE ANYWAY. SHE WITHIN 5 HOURS AFTER LEVOPHED WAS DCED. ALL FAMILY MEMBERS WERE AT [place] WITH HER COMFORTABLE . Allergies amitriptyline Allergy (Verified 05/02/18 22:33) Unknown rosiglitazone maleate [From Avandia] Allergy (Verified 05/02/18 22:33) Anaphylaxis sitagliptin phosphate [From Januvia] Allergy (Verified 05/02/18 22:33) Nausea/Vomiting propafenone HCl [From Rythmol] Adverse Reaction (Verified 05/02/18 22:33) Shortness of breath Tape Allergy (Uncoded 05/02/18 22:33) Itching/Hives/Rash Home Medications: ALPRAZolam [Alprazolam] 1 tab PO BEDTIME 08/23/18 Apixaban [Eliquis] 1 tab PO BID 08/23/18 Atorvastatin Calcium [Lipitor] 1 tab PO BEDTIME 08/23/18 Carvedilol 1 tab PO BID 08/23/18 Furosemide 1 tab PO DAILY 08/23/18 Gabapentin 1 cap PO TID 08/23/18 Lansoprazole 1 cap PO DAILY 08/23/18 Sertraline HCl 1 tab PO DAILY 08/23/18 - Past Medical/Surgical History Has patient received pneumonia vaccine in the past: Yes Diabetic: Yes -: DVT in the 1970s from controll. was in thigh -: DM -: HTN -: Atrial fibrillation -: Congestive heart failure -: hyperlipidemia -: Kidney disease -: pneumonia -: depression/anxiety -: History of lung cancer treated with radiation on the right side -: Pacemaker -: Cataract sx -: R. leg fracture -: left hip surgery - Family History Mother -: Cancer Notes: cervical cancer Father -: Heart disease, Diabetes - Social History Smoking Status: Current some day smoker Alcohol use: No CD- Drugs: No Caffeine use: No Place of Residence: Home Review of Systems is unable to be obtained (SEMICOMATOSE) Physical Examination - Vital Signs Blood Pressure: 49/29 Pulse: 70 Respirations: 16 - Physical Exam General: Mild distress, Obese Respiratory: Diminished, Crackles/rales Cardiovascular: Normal S1 S2 - Diagnosis (Problem(s)) (1) ESRF (end stage renal failure) Status: Acute Plan: WITHIN 5 HOURS WITH ABOVE TERMINAL DIAGNOSIS. SHE WAS KEPT COMFORTABLE WITH HOSPICE PROTOCOL RELATED MEDS. - Disposition Disposition:
== END 2018-09-03 14:34 | disposition expired | DRG 951 ==
LOC: 3RD-ICU 10:28 → 2ND 11:51
PROVIDERS: ADMIT Internal Medicine; ATTEND Internal Medicine
DX: Z51.5 Encounter for palliative care (principal); N18.6 End stage renal disease; I13.2 Hypertensive heart and chronic kidney disease with heart failure and with stage 5 chronic kidney disease, or end stage renal disease; E11.22 Type 2 diabetes mellitus with diabetic chronic kidney disease; I50.9 Heart failure, unspecified; Z85.118 Personal history of other malignant neoplasm of bronchus and lung